=== PATIENT | male | born 1950 | race Caucasian/White ===

== ENCOUNTER → 2020-08-12 14:38 | Outpatient (BNVA) | payer MEDICARE, MEDICAID, SELFPAY | PROVIDERS: PCP Internal Medicine; Referring Provider Internal Medicine; Visit Provider Internal Medicine | DX: I48.0 Paroxysmal atrial fibrillation (principal); Z51.81 Encounter for therapeutic drug level monitoring; Z79.01 Long term (current) use of anticoagulants | CPT/HCPCS: 85610; 99211 ==

== ENCOUNTER → 2020-09-23 14:49 | Outpatient (BNVA) | payer MEDICARE, MEDICAID, SELFPAY | PROVIDERS: PCP Internal Medicine; Visit Provider Internal Medicine | DX: I48.0 Paroxysmal atrial fibrillation (principal); Z51.81 Encounter for therapeutic drug level monitoring; Z79.01 Long term (current) use of anticoagulants | CPT/HCPCS: 85610; 99211 ==

== ENCOUNTER → 2020-10-28 13:28 | Outpatient (BNVA) | payer MEDICARE, MEDICAID, SELFPAY | PROVIDERS: PCP Internal Medicine; Visit Provider Internal Medicine | DX: I48.0 Paroxysmal atrial fibrillation (principal); Z51.81 Encounter for therapeutic drug level monitoring; Z79.01 Long term (current) use of anticoagulants | CPT/HCPCS: 85610; 99211 ==

== ENCOUNTER → 2020-11-25 13:03 | Outpatient (BNVA) | payer MEDICARE, MEDICAID, SELFPAY | PROVIDERS: PCP Internal Medicine; Visit Provider Internal Medicine | DX: I48.0 Paroxysmal atrial fibrillation (principal); Z51.81 Encounter for therapeutic drug level monitoring; Z79.01 Long term (current) use of anticoagulants | CPT/HCPCS: 85610; 99211 ==

== ENCOUNTER → 2020-12-09 13:16 | Outpatient (BNVA) | payer MEDICARE, MEDICAID, SELFPAY | PROVIDERS: PCP Internal Medicine; Visit Provider Internal Medicine | DX: I48.0 Paroxysmal atrial fibrillation (principal); Z51.81 Encounter for therapeutic drug level monitoring; Z79.01 Long term (current) use of anticoagulants | CPT/HCPCS: 85610; 99211 ==

== ENCOUNTER → 2020-12-30 13:23 | Outpatient (BNVA) | payer MEDICARE, MEDICAID, SELFPAY | PROVIDERS: PCP Internal Medicine; Visit Provider Internal Medicine | DX: I48.0 Paroxysmal atrial fibrillation (principal); Z51.81 Encounter for therapeutic drug level monitoring; Z79.01 Long term (current) use of anticoagulants | CPT/HCPCS: 85610; 99211 ==

== ENCOUNTER → 2021-01-13 13:23 | Outpatient (BNVA) | payer MEDICARE, MEDICAID, SELFPAY | PROVIDERS: PCP Internal Medicine; Visit Provider Internal Medicine | DX: I48.0 Paroxysmal atrial fibrillation (principal); Z79.01 Long term (current) use of anticoagulants; Z51.81 Encounter for therapeutic drug level monitoring | CPT/HCPCS: 85610; 99211 ==

== ENCOUNTER → 2021-02-10 13:23 | Outpatient (BNVA) | payer MEDICARE, MEDICAID, SELFPAY | PROVIDERS: PCP Internal Medicine; Visit Provider Internal Medicine | DX: I48.0 Paroxysmal atrial fibrillation (principal); Z51.81 Encounter for therapeutic drug level monitoring; Z79.01 Long term (current) use of anticoagulants | CPT/HCPCS: 85610; 99211 ==

== ENCOUNTER → 2021-03-10 13:16 | Outpatient (BNVA) | payer MEDICARE, MEDICAID, SELFPAY | PROVIDERS: PCP Internal Medicine; Visit Provider Internal Medicine | DX: I48.0 Paroxysmal atrial fibrillation (principal); Z51.81 Encounter for therapeutic drug level monitoring; Z79.01 Long term (current) use of anticoagulants | CPT/HCPCS: 85610; 99211 ==

== ENCOUNTER → 2021-04-07 13:21 | Outpatient (BNVA) | payer MEDICARE, MEDICAID, SELFPAY | PROVIDERS: PCP Internal Medicine; Visit Provider Internal Medicine | DX: I48.0 Paroxysmal atrial fibrillation (principal); Z51.81 Encounter for therapeutic drug level monitoring; Z79.01 Long term (current) use of anticoagulants | CPT/HCPCS: 85610; 99211 ==

== ENCOUNTER → 2021-05-05 13:23 | Outpatient (BNVA) | payer MEDICARE, MEDICAID, SELFPAY | PROVIDERS: PCP Internal Medicine; Visit Provider Internal Medicine | DX: I48.0 Paroxysmal atrial fibrillation (principal); Z51.81 Encounter for therapeutic drug level monitoring; Z79.01 Long term (current) use of anticoagulants | CPT/HCPCS: 85610; 99211 ==

== ENCOUNTER → 2021-06-02 13:20 | Outpatient (BNVA) | payer MEDICARE, MEDICAID, SELFPAY | PROVIDERS: PCP Internal Medicine; Visit Provider Internal Medicine | DX: I48.0 Paroxysmal atrial fibrillation (principal); Z51.81 Encounter for therapeutic drug level monitoring; Z79.01 Long term (current) use of anticoagulants | CPT/HCPCS: 85610; 99211 ==

== ENCOUNTER → 2021-07-14 14:05 | Outpatient (BNVA) | payer MEDICARE, MEDICAID, SELFPAY | PROVIDERS: PCP Internal Medicine; Visit Provider Internal Medicine | DX: I48.0 Paroxysmal atrial fibrillation (principal); Z51.81 Encounter for therapeutic drug level monitoring; Z79.01 Long term (current) use of anticoagulants | CPT/HCPCS: 85610; 99211 ==

== ENCOUNTER → 2021-08-11 13:23 | Outpatient (BNVA) | payer MEDICARE, MEDICAID, SELFPAY | PROVIDERS: PCP Internal Medicine; Visit Provider Internal Medicine | DX: I48.0 Paroxysmal atrial fibrillation (principal); Z51.81 Encounter for therapeutic drug level monitoring; Z79.01 Long term (current) use of anticoagulants | CPT/HCPCS: 85610; 99211 ==

== ENCOUNTER → 2021-09-15 13:10 | Outpatient (BNVA) | payer MEDICARE, MEDICAID, SELFPAY | PROVIDERS: PCP Internal Medicine; Visit Provider Internal Medicine | DX: I48.0 Paroxysmal atrial fibrillation (principal); Z51.81 Encounter for therapeutic drug level monitoring; Z79.01 Long term (current) use of anticoagulants | CPT/HCPCS: 85610; 99211 ==

== ENCOUNTER → 2021-10-13 13:07 | Outpatient (BNVA) | payer MEDICARE, MEDICAID, SELFPAY | PROVIDERS: PCP Internal Medicine; Visit Provider Internal Medicine | DX: I48.0 Paroxysmal atrial fibrillation (principal); Z51.81 Encounter for therapeutic drug level monitoring; Z79.01 Long term (current) use of anticoagulants | CPT/HCPCS: 85610; 99211 ==

== ENCOUNTER → 2021-11-10 12:55 | Outpatient (BNVA) | payer MEDICARE, MEDICAID, SELFPAY | PROVIDERS: PCP Internal Medicine; Visit Provider Internal Medicine | DX: I48.0 Paroxysmal atrial fibrillation (principal); Z51.81 Encounter for therapeutic drug level monitoring; Z79.01 Long term (current) use of anticoagulants | CPT/HCPCS: 85610; 99211 ==

== ENCOUNTER → 2021-12-08 12:59 | Outpatient (BNVA) | payer MEDICARE, MEDICAID, SELFPAY | PROVIDERS: PCP Internal Medicine; Visit Provider Internal Medicine | DX: I48.0 Paroxysmal atrial fibrillation (principal); Z51.81 Encounter for therapeutic drug level monitoring; Z79.01 Long term (current) use of anticoagulants | CPT/HCPCS: 85610; 99211 ==

== ENCOUNTER → 2022-01-12 13:20 | Outpatient (BNVA) | payer MEDICARE, MEDICAID, SELFPAY | PROVIDERS: PCP Internal Medicine; Visit Provider Internal Medicine | DX: I48.0 Paroxysmal atrial fibrillation (principal); Z79.01 Long term (current) use of anticoagulants; Z51.81 Encounter for therapeutic drug level monitoring | CPT/HCPCS: 85610; 99211 ==

== ENCOUNTER → 2022-01-23 10:17 | Outpatient (REF) | payer MEDICARE, MEDICAID, SELFPAY ==
--- NOTE | 2022-01-23 10:44 | CA_ITS ---
Transthoracic Echocardiogram Amended Patient (Last, First, Middle): Viral Castillo, Gender: Male Date of : 1950 Age: 71 Procedure Date: 01/23/2022 Procedure Type: Transthoracic Echocardiogram Location: OP Height: 167.64 cm Weight: 81.65 kg BSA: 1.91 m2 Heart Rate: bpm BP: 140 / 80 mmHg Certified Nurse Midwife: GRIFFIN Referring MD: Jovany Peng MD Symptoms: I10 HTN I48.0 PAF Study Quality: Adequate ECG Rhythm: Atrial Fibrillation Conclusions: - The left ventricular systolic function is normal. The calculated ejection fraction is 63% by biplane method. - Moderately increased right ventricular cavity size. - Severe biatrial enlargement. - There is mild mitral valve regurgitation. - There is mild tricuspid valve regurgitation. - Mild pulmonary hypertension is present. Findings Left Ventricle Normal left ventricular cavity size. There is mildly increased left ventricular wall thickness. The left ventricular systolic function is normal. The calculated ejection fraction is 63% by biplane method. There is no evidence of regional wall motion abnormalities. Diastolic function is indeterminate on the basis of available data. Right Ventricle Moderately increased right ventricular cavity size. There is normal right ventricular systolic function. Atria Severe biatrial enlargement. Aortic Valve There is a normal trileaflet aortic valve. There is no aortic valve stenosis. There is no aortic valve regurgitation. Mitral Valve The mitral valve appears normal. There is mild mitral valve regurgitation. There is no mitral valve stenosis. Pulmonic Valve The pulmonic valve is likely normal. Tricuspid Valve Normal tricuspid valve structure. There is mild tricuspid valve regurgitation. The right ventricular systolic pressure is 44 mmHg. Mild pulmonary hypertension is present. Great Vessels Top normal ascending aortic size at 3.9 cm. Venous The inferior vena cava is dilated and collapses less than 50% with inspiration. Pericardium/Pleural There is no evidence of pericardial effusion. Prior Study Comparison Changes noted compared to prior study dated: 09/11/2013. Further increase in atrial size. Mild valvular regurgitation. Increase in RVSP. Measurements 2D Linear Measurements IVSd: 1.18 0.6-0.9/0.6-1.0 cm LVIDd: 4.80 3.9-5.3/4.2-5.9 cm LVIDd Index: 2.51 2.4-3.2/2.2-3.1 cm/m2 LVIDs: 3.14 2.0-3.6 cm LVPWd: 1.13 0.7-1.1 cm LA Diam: 4.50 2.7-3.8/3.0-4.0 cm LAIDs Index: 2.36 1.5-2.3 cm/m2 LV Mass: 258.79 67-162/88-224 g LV Mass Index: 135.49 43-95/49-115 g/m2 LVOT Diam: 2.20 3.0+(-)1.3 cm 2D Volumes LA Vol: 64.90 2D Systolic Function EF 4C: 63.00 >55% EF 2C: 62.10 >55% EF BiP: 62.70 >55% Mitral Valve MV Pk E: 0.79 MV Decel Time: 289.00 E'Lateral: 14.10 E'Medial: 10.10 E/E' Med: 7.90 E/E' Lat: 5.60 PHT: 85.00 MVA PHT: 2.59 Decel Randall: 2.74 Aortic Valve AoV Pk Miguel: 1.01 AoV Mn Miguel: 0.74 AoV VTI: 0.23 AoV Pk Grad: 4.00 Aov Mn Grad: 2.00 LIZETH Cont.VTI: 2.59 LVOT LVOT Pk Miguel: 0.75 LVOT Mn Miguel: 0.49 LVOT VTI: 0.16 LVOT Pk Grad: 2.00 LVOT Mn Grad: 1.00 LVOT Diam: 2.20 LVOT Area: 3.80 Diastolic Function MV Pk E: 0.79 E'Medial: 10.10 E/E' Med: 7.90 E' Laterial: 14.10 E/E' Lat: 5.60 Right Ventricle TAPSE (mm): 2.14 TVS' Miguel: 11.40 Tricuspid Valve TR Pk Miguel: 2.67 TR Pk Grad: 29.00 RA Press: 15.00 RVSP: 44.00 Great Vessels Aorta Sinus of Valsalva: 3.81 2.0-3.[address] Ridge: 2.42 1.7-3.4 cm Ao Asc: 3.90 2.1-3.4 cm Ao Arch: 3.20 Updated in Other Vendor System with Status of Final Ced Nunez MD electronically signed on 01/23/2022 4:52:09 PM with status of Final
== END ==
LOC: HO.CARD 10:17
PROVIDERS: PCP Internal Medicine; Visit Provider Internal Medicine
DX: I48.0 Paroxysmal atrial fibrillation (principal); I10 Essential (primary) hypertension
CPT/HCPCS: 93306

== ENCOUNTER → 2022-01-26 13:31 | Outpatient (BNVA) | payer MEDICARE, MEDICAID, SELFPAY | PROVIDERS: PCP Internal Medicine; Visit Provider Internal Medicine | DX: I48.0 Paroxysmal atrial fibrillation (principal); Z79.01 Long term (current) use of anticoagulants; Z51.81 Encounter for therapeutic drug level monitoring | CPT/HCPCS: 85610; 99211 ==

== ENCOUNTER → 2022-02-06 08:59 | Outpatient (BNVA) | payer MEDICARE, MEDICAID, SELFPAY | PROVIDERS: PCP Internal Medicine; Visit Provider Internal Medicine Endocrinology, Diabetes & Metabolism | DX: R79.89 Other specified abnormal findings of blood chemistry (principal) | CPT/HCPCS: 99202 ==

== ENCOUNTER 2022-02-23 12:53 | Outpatient (REF) | payer MEDICARE, MEDICAID, SELFPAY ==
[2022-02-23 14:26] LABS: Free T4 (Free Thyroxine) 1.18 ng/dL (0.71-1.85); Thyroid Stimulating Hormone < 0.01 uIU/mL (0.32-4.0)
[2022-02-25 17:31] LABS: Triiodothyronine T3 Free 5.3 pg/mL (2.3-4.2)
== END 2022-02-23 12:54 | disposition home or self-care (01) ==
LOC: HO.LAB 12:53
PROVIDERS: PCP Internal Medicine; Visit Provider Internal Medicine Endocrinology, Diabetes & Metabolism
DX: R79.89 Other specified abnormal findings of blood chemistry (principal); I48.0 Paroxysmal atrial fibrillation; Z51.81 Encounter for therapeutic drug level monitoring; Z79.01 Long term (current) use of anticoagulants
CPT/HCPCS: 36415; 84439; 84443; 84481; 85610; 99211

== ENCOUNTER → 2022-03-23 13:15 | Outpatient (BNVA) | payer MEDICARE, MEDICAID, SELFPAY | PROVIDERS: PCP Internal Medicine; Visit Provider Internal Medicine | DX: I48.0 Paroxysmal atrial fibrillation (principal); Z79.01 Long term (current) use of anticoagulants; Z51.81 Encounter for therapeutic drug level monitoring | CPT/HCPCS: 85610; 99211 ==

== ENCOUNTER → 2022-04-10 09:28 | Outpatient (REF) | payer MEDICARE, MEDICAID, SELFPAY ==
--- NOTE | ~2022-04-10 | NM_ITS ---
EXAMINATION: NM THYROID UPTAKE AND SCAN CLINICAL INFORMATION: Abnormal blood chemistry. COMPARISON: None TECHNIQUE: Following the oral administration of 273 microcuries of I-123 sodium iodide, thyroid uptake was performed and expressed as a percentage of the administrated dose. Gamma scintillation camera images of the thyroid in the anterior and right and left anterior oblique views were obtained using a pinhole collimator following the administration of 10 mCi Tc-99m pertechnetate. FINDINGS: The uptake is 6.28% at 4 hours and 23.97% at 24 hours. On thyroid scan, the right gland appears slightly larger than left with minimal increased activity. No focal cold or hot nodules seen. NM/NM thyroid w uptake IMPRESSION: Normal radio-iodine uptake at 4 hours and 24 hours. Slightly enlarged right thyroid lobe compared to left side but no focal hot or cold nodule or defects seen.
== END ==
LOC: HO.NUCMED 09:28
PROVIDERS: Visit Provider Internal Medicine Endocrinology, Diabetes & Metabolism
DX: R79.89 Other specified abnormal findings of blood chemistry (principal)
CPT/HCPCS: 78014; A9512; A9516

== ENCOUNTER 2022-04-14 07:03 | Outpatient (REF) | payer MEDICARE, MEDICAID, SELFPAY ==
[2022-04-14 08:41] LABS: Thyroid Stimulating Hormone 0.01 uIU/mL (0.32-4.0)
[2022-04-15 09:32] LABS: Triiodothyronine T3 Free 4.2 pg/mL (2.3-4.2)
[2022-04-18 14:26] LABS: Thyrotropin Receptor Antibody 1.12 IU/L (<=2.00)
== END 2022-04-14 07:04 | disposition home or self-care (01) ==
LOC: HO.LAB 07:03
PROVIDERS: PCP Internal Medicine; Visit Provider Internal Medicine Endocrinology, Diabetes & Metabolism
DX: R79.89 Other specified abnormal findings of blood chemistry (principal)
CPT/HCPCS: 36415; 83520; 84439; 84443; 84481

== ENCOUNTER → 2022-04-20 13:07 | Outpatient (BNVA) | payer MEDICARE, MEDICAID, SELFPAY | PROVIDERS: PCP Internal Medicine; Visit Provider Internal Medicine | DX: I48.0 Paroxysmal atrial fibrillation (principal); Z79.01 Long term (current) use of anticoagulants; Z51.81 Encounter for therapeutic drug level monitoring | CPT/HCPCS: 85610; 99211 ==

== ENCOUNTER 2022-04-28 07:11 | Outpatient (REF) | payer MEDICARE, MEDICAID, SELFPAY ==
[2022-04-28 08:36] LABS: Free T4 (Free Thyroxine) 1.11 ng/dL (0.71-1.85); Thyroid Stimulating Hormone 0.01 uIU/mL (0.32-4.0)
[2022-04-30 17:02] LABS: Triiodothyronine T3 Free 5.1 pg/mL (2.3-4.2)
== END 2022-04-28 07:12 | disposition home or self-care (01) ==
LOC: HO.LAB 07:11
PROVIDERS: PCP Internal Medicine; Visit Provider Internal Medicine Endocrinology, Diabetes & Metabolism
DX: R79.89 Other specified abnormal findings of blood chemistry (principal)
CPT/HCPCS: 36415; 84439; 84443; 84481

== ENCOUNTER → 2022-05-01 11:41 | Outpatient (BNVA) | payer MEDICARE, MEDICAID, SELFPAY | PROVIDERS: PCP Internal Medicine; Visit Provider Internal Medicine Endocrinology, Diabetes & Metabolism | DX: R79.89 Other specified abnormal findings of blood chemistry (principal) | CPT/HCPCS: 36415; 80076; 85025; 99212 ==

== ENCOUNTER 2022-05-01 12:33 | Outpatient (REF) | payer MEDICARE, MEDICAID, SELFPAY ==
[2022-05-01 13:40] LABS: MANUAL DIFF FLAG NO
[2022-05-01 13:46] LABS: Basophils Percent Auto 0.2 % (0-2); Eosinophils Absolute Auto 0.2 X10*3/uL (0.0-0.4); Eosinophils Percent Auto 3.6 % (0-4); Hematocrit 40.2 % (42.0-52.0); Hemoglobin 13.7 g/dl (14.0-18.0); Imm Gran Abs Auto 0.01 X10*3/uL (0.00-0.03); Imm Gran Pct Auto 0.2 % (0.0-0.4); Lymphocytes Absolute Auto 1.8 X10*3/uL (1.2-4.9); Lymphocytes Percent Auto 27.6 % (20-40); Mean Corpuscular HGB Conc 34.1 g/dl (31.0-36.0); Mean Corpuscular Hemoglobin 28.8 pg (27.0-33.0); Mean Corpuscular Volume 84.5 fL (80.0-98.0); Mean Platelet Volume 10.9 fL (9.4-12.4); Monocytes Absolute Auto 0.7 X10*3/uL (0.1-1.2); Monocytes Percent Auto 11.2 % (2-11); Neutrophils Absolute Auto 3.7 x10*3/uL (2.0-8.3); Neutrophils Percent Auto 57.2 % (45-73); Platelet Count 177 X10*3/uL (160-400); Red Blood Count 4.76 X10*6/uL (4.60-5.80); Red Cell Distribution Width 13.3 % (11.0-16.0); White Blood Count 6.5 X10*3/uL (4.8-10.8)
[2022-05-01 14:28] LABS: Alanine Aminotransferase 26 U/L (0-40); Albumin Level 4.2 g/dL (3.5-5.0); Alkaline Phosphatase 63 U/L (39-117); Aspartate Amino Transferase 30 U/L (5-37); Bilirubin Direct 0.4 mg/dL (0.0-0.5); Bilirubin Total 0.8 mg/dL (0.0-1.0); Total Protein 6.9 g/dL (6.5-8.0)
== END 2022-05-01 12:34 | disposition home or self-care (01) ==
LOC: HO.10HDL 12:33
PROVIDERS: Visit Provider Internal Medicine Endocrinology, Diabetes & Metabolism
DX: Z13.89 Encounter for screening for other disorder (principal)
CPT/HCPCS: 36415; 80076; 85025

== ENCOUNTER → 2022-05-18 13:05 | Outpatient (BNVA) | payer MEDICARE, MEDICAID, SELFPAY | PROVIDERS: PCP Internal Medicine; Visit Provider Internal Medicine | DX: I48.0 Paroxysmal atrial fibrillation (principal); Z79.01 Long term (current) use of anticoagulants; Z51.81 Encounter for therapeutic drug level monitoring | CPT/HCPCS: 85610; 99211 ==

== ENCOUNTER 2022-05-29 15:28 | Outpatient (REF) | payer MEDICARE, MEDICAID, SELFPAY ==
--- NOTE | ~2022-05-29 | US_ITS ---
EXAMINATION: US THYROID CLINICAL INFORMATION: Low TSH levels. COMPARISON: Nuclear medicine thyroid uptake and scan 04/10/2022. TECHNIQUE: Linear transducer grayscale and color Doppler examination with attention to the region of the thyroid. FINDINGS: SIZE: Measurements of the thyroid lobes and nodules are given in sagittal, anteroposterior and transverse dimensions respectively. Right Thyroid Lobe: 5.8 x 1.7 x 2.4 cm, volume 12.4 mL. Parenchyma: The gland echotexture is heterogeneous. Thyroid vascularity is increased. Left Thyroid Lobe: 4.2 x 1.4 x 1.5 cm, volume 4.6 mL. Parenchyma: The gland echotexture is heterogeneous. Thyroid vascularity is increased. Isthmus: 0.4 cm in maximum AP dimension. Estimated total number of nodules greater than or equal to 1 cm: 1. Preservative Filler Machine Operator nodules are described as follows: 1. Location: Left mid. Size: 0.9 x 0.5 x 0.9 cm, volume 0.24 mL. Nodule characteristics: Composition: Solid (2). Echogenicity: Isoechoic (1). Shape: Not taller than wide (0). Margins: Smooth (0). Echogenic Foci: Punctate echogenic foci (3). ACR TI-RADS total points: 6 ACR TI-RADS category: 4 2. Location: Right superior. Size: 0.7 x 0.5 x 0.6 cm, volume 0.10 mL. Nodule characteristics: Composition: Solid/almost completely solid (2). Echogenicity: Isoechoic (1). Shape: Not taller than wide (0). Margins: Ill-defined (0). Echogenic Foci: None (0). ACR TI-RADS total points: 3 ACR TI-RADS category: 3 3. Location: Right mid. Size: 0.7 x 0.7 x 0.6 cm, volume 0.14 mL. Nodule characteristics: Composition: Solid (2). Echogenicity: Hyperechoic (1). Shape: Taller than wide (3). Margins: Ill-defined (0). Echogenic Foci: None (0). ACR TI-RADS total points: 6 ACR TI-RADS category: 4 4. Location: Right inferior. Size: 1.1 x 1.2 x 1.3 cm, volume 0.92 mL. Nodule characteristics: Composition: Solid/almost completely solid (2). Echogenicity: Hypoechoic (2). Shape: Not taller than wide (0). Margins: Ill-defined (0). Echogenic Foci: Macrocalcifications (1). ACR TI-RADS total points: 5 ACR TI-RADS category: 4 NODES: No lymphadenopathy is seen in the tissue surrounding the thyroid gland. US/US thyroid IMPRESSION: Heterogeneous hypervascular thyroid gland. The right lobe slightly enlarged. Multiple bilateral thyroid nodules. According to TI RADS criteria, ultrasound follow-up in one, 2, 3 and 5 years would be recommended as described below. ACR TI-RADS RECOMMENDATION REFERENCE: Ultrasound-guided fine-needle aspiration, followup ultrasound, no further follow up. * TR1 (0 point) and TR 2 (2 points): No FNA or follow up. * TR3 (3 points): FNA if more than or equal to 2.5 cm in maximum dimension, followup ultrasound in 1, 3 and 5 years if 1.5 to 2.4 cm in maximum dimension. * TR4 (4-6 points): FNA if more than or equal to 1.5 cm in maximum dimension, followup ultrasound in 1, 2, 3 and 5 years if 1 to 1.4 cm in maximum dimension. * TR5 (more than or equal to 7 points): FNA if more than or equal to 1 cm in maximum dimension, followup ultrasound every year for 5 years if 0.5 to 0.9 cm in maximum dimension. * TR3, TR4 or TR5 nodules that are below the size threshold for followup receive no follow up.
== END 2022-05-29 15:29 | disposition home or self-care (01) ==
LOC: HO.HMGCX 15:28
PROVIDERS: Visit Provider Internal Medicine Endocrinology, Diabetes & Metabolism
DX: R79.89 Other specified abnormal findings of blood chemistry (principal)
CPT/HCPCS: 76536

== ENCOUNTER → 2022-06-15 13:09 | Outpatient (BNVA) | payer MEDICARE, MEDICAID, SELFPAY | PROVIDERS: PCP Internal Medicine; Visit Provider Internal Medicine | DX: I48.0 Paroxysmal atrial fibrillation (principal); Z79.01 Long term (current) use of anticoagulants; Z51.81 Encounter for therapeutic drug level monitoring | CPT/HCPCS: 85610; 99211 ==

== ENCOUNTER → 2022-07-13 13:10 | Outpatient (BNVA) | payer MEDICARE, MEDICAID, SELFPAY | PROVIDERS: PCP Internal Medicine; Visit Provider Internal Medicine | DX: I48.0 Paroxysmal atrial fibrillation (principal); Z79.01 Long term (current) use of anticoagulants; Z51.81 Encounter for therapeutic drug level monitoring | CPT/HCPCS: 85610; 99211 ==

== ENCOUNTER 2022-08-28 15:40 | Outpatient (REF) | payer MEDICARE, MEDICAID, SELFPAY ==
[2022-08-28 16:16] LABS: MANUAL DIFF FLAG NO
[2022-08-28 17:29] LABS: Basophils Percent Auto 0.2 % (0-2); Eosinophils Absolute Auto 0.1 X10*3/uL (0.0-0.4); Eosinophils Percent Auto 1.3 % (0-4); Hematocrit 41.7 % (42.0-52.0); Hemoglobin 14.2 g/dl (14.0-18.0); Imm Gran Abs Auto 0.01 X10*3/uL (0.00-0.03); Imm Gran Pct Auto 0.2 % (0.0-0.4); Lymphocytes Absolute Auto 1.6 X10*3/uL (1.2-4.9); Mean Corpuscular HGB Conc 34.1 g/dl (31.0-36.0); Mean Corpuscular Hemoglobin 29.4 pg (27.0-33.0); Mean Corpuscular Volume 86.3 fL (80.0-98.0); Monocytes Absolute Auto 1.1 X10*3/uL (0.1-1.2); Monocytes Percent Auto 17.1 % (2-11); Neutrophils Absolute Auto 3.6 x10*3/uL (2.0-8.3); Neutrophils Percent Auto 56.2 % (45-73); Platelet Count 212 X10*3/uL (160-400); Red Blood Count 4.83 X10*6/uL (4.60-5.80); Red Cell Distribution Width 13.1 % (11.0-16.0); White Blood Count 6.4 X10*3/uL (4.8-10.8)
[2022-08-28 18:24] LABS: Alanine Aminotransferase 32 U/L (0-40); Albumin Level 4.5 g/dL (3.5-5.0); Alkaline Phosphatase 73 U/L (39-117); Aspartate Amino Transferase 35 U/L (5-37); Bilirubin Direct 0.3 mg/dL (0.0-0.5); Bilirubin Total 0.9 mg/dL (0.0-1.0); Free T4 (Free Thyroxine) 0.98 ng/dL (0.71-1.85); Thyroid Stimulating Hormone 1.47 uIU/mL (0.32-4.0); Total Protein 7.4 g/dL (6.5-8.0)
[2022-08-30 06:58] LABS: Triiodothyronine T3 Free 3.7 pg/mL (2.3-4.2)
== END 2022-08-28 15:41 | disposition home or self-care (01) ==
LOC: HO.LAB 15:40
PROVIDERS: PCP Internal Medicine; Visit Provider Internal Medicine Endocrinology, Diabetes & Metabolism
DX: I48.0 Paroxysmal atrial fibrillation (principal); R79.89 Other specified abnormal findings of blood chemistry; Z51.81 Encounter for therapeutic drug level monitoring; Z79.01 Long term (current) use of anticoagulants
CPT/HCPCS: 36415; 80076; 84439; 84443; 84481; 85025; 85610; 99211

== ENCOUNTER → 2022-09-14 13:09 | Outpatient (BNVA) | payer MEDICARE, MEDICAID, SELFPAY | PROVIDERS: PCP Internal Medicine; Visit Provider Internal Medicine | DX: I48.0 Paroxysmal atrial fibrillation (principal); Z79.01 Long term (current) use of anticoagulants; Z51.81 Encounter for therapeutic drug level monitoring | CPT/HCPCS: 85610; 99211 ==

== ENCOUNTER → 2022-09-19 15:19 | Outpatient (BNVA) | payer MEDICARE, MEDICAID, SELFPAY | PROVIDERS: PCP Internal Medicine; Visit Provider Internal Medicine Endocrinology, Diabetes & Metabolism | DX: R79.89 Other specified abnormal findings of blood chemistry (principal) | CPT/HCPCS: 99212 ==

== ENCOUNTER → 2022-10-12 13:09 | Outpatient (BNVA) | payer MEDICARE, MEDICAID, SELFPAY | PROVIDERS: PCP Internal Medicine; Visit Provider Internal Medicine | DX: I48.0 Paroxysmal atrial fibrillation (principal); Z79.01 Long term (current) use of anticoagulants; Z51.81 Encounter for therapeutic drug level monitoring | CPT/HCPCS: 85610; 99211 ==

== ENCOUNTER → 2022-11-09 13:44 | Outpatient (BNVA) | payer MEDICARE, MEDICAID, SELFPAY | PROVIDERS: PCP Internal Medicine; Visit Provider Internal Medicine | DX: I48.0 Paroxysmal atrial fibrillation (principal); Z79.01 Long term (current) use of anticoagulants; Z51.81 Encounter for therapeutic drug level monitoring | CPT/HCPCS: 85610; 99211 ==

== ENCOUNTER → 2022-12-14 14:10 | Outpatient (BNVA) | payer MEDICARE, MEDICAID, SELFPAY | PROVIDERS: PCP Internal Medicine; Visit Provider Internal Medicine | DX: I48.0 Paroxysmal atrial fibrillation (principal); Z79.01 Long term (current) use of anticoagulants; Z51.81 Encounter for therapeutic drug level monitoring | CPT/HCPCS: 85610; 99211 ==

== ENCOUNTER → 2023-01-11 13:21 | Outpatient (BNVA) | payer MEDICARE, MEDICAID, SELFPAY | PROVIDERS: PCP Internal Medicine; Visit Provider Internal Medicine | DX: I48.0 Paroxysmal atrial fibrillation (principal); Z79.01 Long term (current) use of anticoagulants; Z51.81 Encounter for therapeutic drug level monitoring | CPT/HCPCS: 85610; 99211 ==

== ENCOUNTER → 2023-02-08 13:06 | Outpatient (BNVA) | payer MEDICARE, MEDICAID, SELFPAY | PROVIDERS: PCP Internal Medicine; Visit Provider Internal Medicine | DX: I48.0 Paroxysmal atrial fibrillation (principal); Z79.01 Long term (current) use of anticoagulants; Z51.81 Encounter for therapeutic drug level monitoring | CPT/HCPCS: 85610; 99211 ==

== ENCOUNTER 2023-04-19 13:39 | Outpatient (AMB) | payer MEDICARE, MEDICAID, SELFPAY ==
[2023-04-19 14:12] LABS: Prothrombin Time Whole Bld POC 24.2 sec (11.1-13.5)
--- NOTE | 2023-04-19 14:13 | MHC.OFFVISCO ---
Intake Intake Visit Reasons: Anticoagulation Allergies No Known Allergies [No Known Allergies*] Allergy (Verified 04/19/23 14:05) Medication List - Last Reconciled 04/19/23 by Tomasa Osuna RN diltiazem HCl ER (DILT-XR) 240 mg PO DAILY lisinopril 2.5 mg PO DAILY methimazole 10 mg PO DAILY warfarin 2.5 mg See Protocol PO DAILY Nursing Note Amb to ACS feeling well, Last ACS visit was 02/08, travel to [place] and ?missed appt, reminded to keep scheduled appointents Medications and supplements reviewed No changes in health, diet, medications, or supplements Denies any unusual signs and symptoms of bruising, bleeding Denies any new Chest pain, SOB, or clotting INR: 2.0 just in therapeutic range Nutritional guidance given:no greens today then balance greens and reds in diet, be consistent Dose: continue usual dosing; 10mg x 3 days and 7.5mg x 4 days F/U INR: 4 weeks Patient verbalizes understanding of instructions given with accurate read back/ teach back of dosing Anti-Coag Initial Assessment Social Hx Patient Tobacco Use Status: Former Tobacco user Tobacco use type: Cigarette alcohol intake: current Alcohol intake frequency: does not drink Coding Level of Care Code Est Patient Level 1 Diagnoses Current use of anticoagulant therapy Z79.01 Time Spent (min) 15 Assessment & Plan Assessment & Plan (1) Current use of anticoagulant therapy: Code(s): Z79.01 - prison (current) use of anticoagulants Category: Medical
== END 2023-04-19 14:00 ==
LOC: HO.ACS 13:39
PROVIDERS: PCP Internal Medicine; Visit Provider Internal Medicine
DX: Z79.01 Long term (current) use of anticoagulants (principal)

== ENCOUNTER → 2023-04-19 13:39 | Outpatient (BNVA) | payer MEDICARE, MEDICAID, SELFPAY | PROVIDERS: PCP Internal Medicine; Visit Provider Internal Medicine | DX: I48.0 Paroxysmal atrial fibrillation (principal); Z79.01 Long term (current) use of anticoagulants; Z51.81 Encounter for therapeutic drug level monitoring | CPT/HCPCS: 85610; 99211 ==

== ENCOUNTER 2023-05-07 15:33 | Outpatient (REF) | payer MEDICARE, MEDICAID, SELFPAY ==
[2023-05-07 15:56] LABS: MANUAL DIFF FLAG NO
[2023-05-07 17:01] LABS: Basophils Percent Auto 0.3 % (0-2); Eosinophils Absolute Auto 0.3 X10*3/uL (0.0-0.4); Eosinophils Percent Auto 3.9 % (0-4); Hematocrit 40.8 % (42.0-52.0); Hemoglobin 14.2 g/dl (14.0-18.0); Imm Gran Abs Auto 0.01 X10*3/uL (0.00-0.03); Imm Gran Pct Auto 0.1 % (0.0-0.4); Lymphocytes Absolute Auto 2.2 X10*3/uL (1.2-4.9); Mean Corpuscular HGB Conc 34.8 g/dl (31.0-36.0); Mean Corpuscular Hemoglobin 30.5 pg (27.0-33.0); Mean Corpuscular Volume 87.6 fL (80.0-98.0); Mean Platelet Volume 11.5 fL (9.4-12.4); Monocytes Absolute Auto 0.7 X10*3/uL (0.1-1.2); Monocytes Percent Auto 9.8 % (2-11); Neutrophils Absolute Auto 3.9 x10*3/uL (2.0-8.3); Neutrophils Percent Auto 54.9 % (45-73); Platelet Count 176 X10*3/uL (160-400); Red Blood Count 4.66 X10*6/uL (4.60-5.80); Red Cell Distribution Width 13.1 % (11.0-16.0); White Blood Count 7.1 X10*3/uL (4.8-10.8)
[2023-05-07 17:30] LABS: Alanine Aminotransferase 30 U/L (0-40); Albumin Level 4.4 g/dL (3.5-5.0); Alkaline Phosphatase 62 U/L (39-117); Aspartate Amino Transferase 33 U/L (5-37); Bilirubin Direct 0.2 mg/dL (0.0-0.5); Bilirubin Total 0.6 mg/dL (0.0-1.0); Total Protein 7.3 g/dL (6.5-8.0)
[2023-05-07 17:46] LABS: Free T4 (Free Thyroxine) 0.75 ng/dL (0.71-1.85)
[2023-05-08 23:53] LABS: Triiodothyronine T3 Free 3.3 pg/mL (2.3-4.2)
== END 2023-05-07 15:34 | disposition home or self-care (01) ==
LOC: HO.LAB 15:33
PROVIDERS: PCP Internal Medicine; Visit Provider Internal Medicine Endocrinology, Diabetes & Metabolism
DX: R94.6 Abnormal results of thyroid function studies (principal)
CPT/HCPCS: 36415; 80076; 84439; 84443; 84481; 85025

== ENCOUNTER 2023-05-14 16:36 | Outpatient (AMB) | payer MEDICARE, MEDICAID, SELFPAY ==
--- NOTE | 2023-05-14 16:38 | MHC.OFFVIS ---
Intake Vital Signs 05/14/23 16:41 Height 5 ft 6 in Weight 191 lb 2.252 oz BMI 30.8 BP 142/70 H Blood Pressure Location Rt brachial Position Sitting Pulse 70 Pulse Source Pulse Oximeter Intake Visit Reasons: f/u toxic thyroid nodule Intake Note: Patient present for Toxic Thyroid Nodule follow up visit. Bobbin Cleaning Machine Operator Required: No Bobbin Cleaning Machine Operator Name: Refusal Signed Accompanied by: Daughter Allergies No Known Allergies [No Known Allergies*] Allergy (Verified 05/14/23 16:42) HPI HPI Comments History of Present Illness Details 72 YO F with PMHx a-fib who is seen in consultation for low TSH at the request of PCP. Just found out about abnormal TSH Currently denies any dysphagia or hoarseness of voice. Denies sensation of swelling in the neck or difficulty breathing while lying flat. Denies any tenderness in the neck. Denies any palpitations, tremors, weight loss, frequent bowel movements. Denies any ocular complaints, blurred or double vision. Denies hair loss, dry skin, heat or cold intolerance, weight gain, confusion. Denies any history of head or neck irradiation. Denies any family history of thyroid cancer or thyroid problems . No recent use of steroids or amiodarone Thyroid uptake and scan showed normal uptake but personal review of scan showed hot right nodule although was not read as such. He is currently off methimazole . Labs: Recent blood work showed elevation TSH and methimazole was stopped [facility] Medical History (Updated 02/06/22 @ 08:57 by Eugene Lake MD) Low TSH level Surgical History History of surgery History of total right hip arthroplasty Hx of colonoscopy Hx of hernia repair Family History Father No problems noted. Mother No problems noted. Sister Stroke Social History Household Members: Spouse Alcohol intake: current Alcohol intake frequency: does not drink Patient Tobacco Use Status: Former Tobacco user Tobacco use type: Cigarette Physical Exam Vital Signs: BMI result Body Mass Index 30.8 HEENT reveals absence of lid lag , stare or proptosis or eyebrow loss. Thyroid gland measure 15 gms . No nodules or tenderness palpated. There is no cervical adenopathy palpated. Lungs CTA. Heart S1, S2 irReg Irreg R/R -M/R/G. Abdominal exam benign. Skin exam reveals absence of dryness or thyroid dermopathy or vitiligo. Nail exam reveals absence of thyroid acropachy or oncholysis. Neurologic exam reveals 2+ reflexes . Muscle Strength is 5/5 proximally. There are no tremors in upper extremities. Assessment & Plan Assessment & Plan (1) Low TSH level: Code(s): R79.89 - Other specified abnormal findings of blood chemistry Plan: This 71-year-old male with a history of undetectable TSH with normal free T4 and free T3 in the setting of atrial fibrillation. Currently off methimazole. Antibodies were negative for Graves disease Plan is to recheck thyroid function studies in 4 weeks time. Will also repeat thyroid ultrasound If TSH declines again, methimazole 5 mg will be initiated. Orders: Orders US thyroid Today E04.2 - Nontoxic multinodular goiter Coding Level of Care Code Est Pt Level 3 (60050) Diagnoses Low TSH level R79.89
[2023-05-14 16:41] VITALS: BP 142/70; PULSE 70; BMI 30.8
== END 2023-05-14 16:50 ==
PROVIDERS: PCP Internal Medicine; Visit Provider Internal Medicine Endocrinology, Diabetes & Metabolism
DX: R79.89 Other specified abnormal findings of blood chemistry (principal)
CPT/HCPCS: 99213

== ENCOUNTER → 2023-05-14 16:36 | Outpatient (BNVA) | payer MEDICARE, MEDICAID, SELFPAY | PROVIDERS: PCP Internal Medicine; Visit Provider Internal Medicine Endocrinology, Diabetes & Metabolism | DX: R94.6 Abnormal results of thyroid function studies (principal) | CPT/HCPCS: 99212 ==

== ENCOUNTER 2023-05-17 13:20 | Outpatient (AMB) | payer MEDICARE, MEDICAID, SELFPAY ==
[2023-05-17 13:29] LABS: Prothrombin Time Whole Bld POC 18.9 sec (11.1-13.5); ~PT, ~INR - Anti Coag Clinic 1.6 (0.9-1.1)
--- NOTE | 2023-05-17 13:32 | MHC.OFFVISCO ---
Intake Intake Visit Reasons: Anticoagulation Allergies No Known Allergies [No Known Allergies*] Allergy (Verified 05/17/23 13:24) Medication List - Last Reconciled 05/17/23 by Tomasa Osuna RN diltiazem HCl ER (DILT-XR) 240 mg PO DAILY lisinopril 2.5 mg PO DAILY warfarin 2.5 mg See Protocol PO DAILY Nursing Note Amb to ACS feeling well Medications and supplements reviewed No changes in health, diet, medications, or supplements Denies any unusual signs and symptoms of bruising, bleeding Denies any new Chest pain, SOB, or clotting INR: 1.6 below therapeutic range, pt thinks he may have had too many pickles over the past couple weeks Nutritional guidance given: no greens x 2 days then balance greens and reds in diet, in moderation Dose: increase dose today to 12.5mg (vs 10mg), tomorrow to 10 mg (vs 7.5) then resume usual dosing; 10mg x 3 days and 7.5mg x 4 days F/U INR: 1week and instructed my need another check in a couple weeks before he can go back to monthly visits Patient verbalizes understanding of instructions given with accurate read back/ teach back of dosing Anti-Coag Initial Assessment Social Hx Patient Tobacco Use Status: Former Tobacco user Tobacco use type: Cigarette alcohol intake: current Alcohol intake frequency: does not drink Coding Level of Care Code Est Patient Level 1 Diagnoses Current use of anticoagulant therapy Z79.01 Time Spent (min) 15 Assessment & Plan Assessment & Plan (1) Current use of anticoagulant therapy: Code(s): Z79.01 - custodial (current) use of anticoagulants Category: Medical
== END 2023-05-17 14:01 | disposition home or self-care (01) ==
LOC: HO.ACS 13:20
PROVIDERS: PCP Internal Medicine; Visit Provider Internal Medicine
DX: Z79.01 Long term (current) use of anticoagulants (principal)

== ENCOUNTER → 2023-05-17 13:20 | Outpatient (BNVA) | payer MEDICARE, MEDICAID, SELFPAY | PROVIDERS: PCP Internal Medicine; Visit Provider Internal Medicine | DX: I48.0 Paroxysmal atrial fibrillation (principal); Z79.01 Long term (current) use of anticoagulants; Z51.81 Encounter for therapeutic drug level monitoring | CPT/HCPCS: 85610; 99211 ==

== ENCOUNTER 2023-05-24 13:18 | Outpatient (AMB) | payer MEDICARE, MEDICAID, SELFPAY ==
[2023-05-24 13:37] LABS: Prothrombin Time Whole Bld POC 25.1 sec (11.1-13.5); ~PT, ~INR - Anti Coag Clinic 2.1 (0.9-1.1)
--- NOTE | 2023-05-24 13:39 | MHC.OFFVISCO ---
Intake Intake Visit Reasons: Anticoagulation Allergies No Known Allergies [No Known Allergies*] Allergy (Verified 05/24/23 13:28) Medication List - Last Reconciled 05/24/23 by Ximena Mukherjee RN diltiazem HCl ER (DILT-XR) 240 mg PO DAILY lisinopril 2.5 mg PO DAILY methimazole 10 mg PO DAILY warfarin 2.5 mg See Protocol PO DAILY Nursing Note INR: 2.1 in therapeutic range TYROID FUNCTIONS BEING FOLLOWED BY ENDOCRIN - LABIL AT THE MOMENT Medications and supplements reviewed No changes in health, diet, medications, or supplements, Denies any signs and symptoms of bleeding or bruising or clotting. 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
== END 2023-05-24 13:42 | disposition home or self-care (01) ==
LOC: HO.ACS 13:18
PROVIDERS: PCP Internal Medicine; Visit Provider Internal Medicine
DX: Z79.01 Long term (current) use of anticoagulants (principal)

== ENCOUNTER → 2023-05-24 13:18 | Outpatient (BNVA) | payer MEDICARE, MEDICAID, SELFPAY | PROVIDERS: PCP Internal Medicine; Visit Provider Internal Medicine | DX: I48.0 Paroxysmal atrial fibrillation (principal); Z79.01 Long term (current) use of anticoagulants; Z51.81 Encounter for therapeutic drug level monitoring | CPT/HCPCS: 85610; 99211 ==

== ENCOUNTER 2023-05-28 15:36 | Outpatient (REF) | payer MEDICARE, MEDICAID, SELFPAY ==
--- NOTE | ~2023-05-28 | US_ITS ---
EXAMINATION: US THYROID CLINICAL INFORMATION: Nontoxic multinodular goiter. COMPARISON: Ultrasound soft tissue head/neck thyroid dated 05/29/2022. TECHNIQUE: Linear transducer grayscale and color Doppler examination with attention to the region of the thyroid. FINDINGS: SIZE: Measurements of the thyroid lobes and nodules are given in sagittal, anteroposterior and transverse dimensions respectively. Right Thyroid Lobe: 5.7 x 1.7 x 1.8 cm, volume 9.1 mL. Previously 5.8 x 1.7 x 2.4 cm, volume 12.4 mL. Parenchyma: The gland echotexture is homogeneous. Thyroid vascularity is normal. Left Thyroid Lobe: 4.1 x 1.7 x 2.1 cm, volume 7.7 mL. Previously 4.2 x 1.4 x 1.5 cm, volume 4.6 mL. Parenchyma: The gland echotexture is homogeneous. Thyroid vascularity is normal. Isthmus: 0.3 cm in maximum AP dimension. Previously 0.4 cm. Estimated total number of nodules greater than or equal to 1 cm: 2. Environmental Compliance Inspector nodules are described as follows: 1. Location: Left mid. Size: 1.7 x 0.9 x 1.4 cm, volume 1.08 mL. Previously: 0.9 x 0.5 x 0.9 cm, volume 0.24 mL. Nodule characteristics: Composition: Solid (2). Echogenicity: Isoechoic (1). Shape: Not taller than wide (0). Margins: Smooth (0). Echogenic Foci: Punctate echogenic foci (3). ACR TI-RADS total points: 6 Previous: 6 ACR TI-RADS category: 4 Previous: 4 Significant change in size (>/= 20% in 2 dimensions and minimal increase of 2 mm or 50% or greater increase in volume): Yes Change in features: No Change in ACR TI-RADS risk category: No 2. Location: Left superior. Size: 0.8 x 0.5 x 0.5 cm, volume 0.11 mL. Previously: This nodule is new. Nodule characteristics: Composition: Solid (2). Echogenicity: Hypoechoic (2). Shape: Not taller than wide (0). Margins: Smooth (0). Echogenic Foci: None (0). ACR TI-RADS total points: 4 ACR TI-RADS category: 4 3. Location: Right mid/superior. Size: 0.8 x 0.5 x 0.5 cm, volume 0.10 mL. Previously: 0.7 x 0.5 x 0.6 cm, volume 0.10 mL. Nodule characteristics: Composition: Solid (2). Echogenicity: Hyperechoic (1). Shape: Not taller than wide (0). Margins: Smooth (0). Echogenic Foci: None (0). ACR TI-RADS total points: 3 Previous: 3 ACR TI-RADS category: 3 Previous: 3 Significant change in size (>/= 20% in 2 dimensions and minimal increase of 2 mm or 50% or greater increase in volume): No Change in features: No Change in ACR TI-RADS risk category: No 4. Location: Right mid. Size: 0.7 x 0.7 x 0.7 cm, volume 0.18 mL. Previously: 0.7 x 0.7 x 0.6 cm, volume 0.14 mL. Nodule characteristics: Composition: Solid (2). Echogenicity: Hyperechoic (1). Shape: Not taller than wide (0). Margins: Smooth (0). Echogenic Foci: None (0). ACR TI-RADS total points: 3 Previous: 6 ACR TI-RADS category: 3 Previous: 4 Significant change in size (>/= 20% in 2 dimensions and minimal increase of 2 mm or 50% or greater increase in volume): No Change in features: Yes, no longer taller than wide Change in ACR TI-RADS risk category: Yes 5. Location: Right inferior. Size: 1.0 x 1.0 x 1.2 cm, volume 0.60 mL. Previously: 1.1 x 1.2 x 1.3 cm, volume 0.92 mL. Nodule characteristics: Composition: Mixed cystic and solid (1). Echogenicity: Isoechoic (1). Shape: Not taller than wide (0). Margins: Ill-defined (0). Echogenic Foci: Peripheral calcifications (2). ACR TI-RADS total points: 4 ACR TI-RADS category: 4 Significant change in size (>/= 20% in 2 dimensions and minimal increase of 2 mm or 50% or greater increase in volume): No Change in features: Not accounting for differences in interobserver variability. Change in ACR TI-RADS risk category: No NODES: No lymphadenopathy is seen in the tissue surrounding the thyroid gland. US/US thyroid IMPRESSION: 1.7 cm TR 4 left mid thyroid nodule which meets criteria for tissue sampling if not ready obtained. A 1.2 cm TR 4 right inferior thyroid nodule meets criteria not significant changed when accounting for differences in interobserver variability meets criteria for continued sonographic surveillance in one year as detailed below. Remainder of subcentimeter thyroid nodules do not meet criteria for follow-up. ACR TI-RADS RECOMMENDATION REFERENCE: Ultrasound-guided fine-needle aspiration, follow up ultrasound, no further followup. * TR1 (0 point) and TR2 (2 points): No FNA or followup * TR3 (3 points): FNA if more than or equal to 2.5 cm in maximum dimension, follow up ultrasound in 1, 3 and 5 years if 1.5 to 2.4 cm in maximum dimension. * TR4 (4-6 points): FNA if more than or equal to 1.5 cm in maximum dimension, follow up ultrasound in 1, 2, 3 and 5 years if 1 to 1.4 cm in maximum dimension. * TR5 (more than or equal to 7 points): FNA if more than or equal to 1 cm in maximum dimension, follow up ultrasound every year for 5 years if 0.5 to 0.9 cm in maximum dimension. * TR3, TR4 or TR5 nodules that are below the size threshold for follow up receive no followup.
== END 2023-05-28 15:37 | disposition home or self-care (01) ==
LOC: HO.HMGCX 15:36
PROVIDERS: PCP Internal Medicine; Visit Provider Internal Medicine Endocrinology, Diabetes & Metabolism
DX: E04.2 Nontoxic multinodular goiter (principal)
CPT/HCPCS: 76536

== ENCOUNTER 2023-06-08 08:47 | Outpatient (REF) | payer MEDICARE, MEDICAID, SELFPAY ==
[2023-06-08 10:48] LABS: Free T4 (Free Thyroxine) 0.86 ng/dL (0.71-1.85); Thyroid Stimulating Hormone 3.31 uIU/mL (0.32-4.0)
[2023-06-09 23:28] LABS: Triiodothyronine T3 Free 4.1 pg/mL (2.3-4.2)
== END 2023-06-08 08:48 | disposition home or self-care (01) ==
LOC: HO.LAB 08:47
PROVIDERS: PCP Internal Medicine; Visit Provider Internal Medicine Endocrinology, Diabetes & Metabolism
DX: R94.6 Abnormal results of thyroid function studies (principal)
CPT/HCPCS: 36415; 84439; 84443; 84481

== ENCOUNTER 2023-06-14 13:29 | Outpatient (AMB) | payer MEDICARE, MEDICAID, SELFPAY ==
--- NOTE | 2023-06-14 13:37 | MHC.OFFVISCO ---
Intake Intake Visit Reasons: Anticoagulation Allergies No Known Allergies [No Known Allergies*] Allergy (Verified 06/14/23 13:30) Medication List - Last Reconciled 06/14/23 by Tomasa Osuna RN diltiazem HCl ER (DILT-XR) 240 mg PO DAILY lisinopril 2.5 mg PO DAILY warfarin 2.5 mg See Protocol PO DAILY Nursing Note Amb to ACS feeling well Medications and supplements reviewed No changes in health, diet, medications, or supplements Denies any unusual signs and symptoms of bruising, bleeding Denies any new Chest pain, SOB, or clotting INR: 2.7 in therapeutic range Nutritional guidance given: balance greens and reds in diet Dose: continue usual dosing;10mg x 3 days and 7.5mg x 4 days F/U INR: 4 weeks Patient verbalizes understanding of instructions given with accurate read back/ teach back of dosing Anti-Coag Initial Assessment Social Hx Patient Tobacco Use Status: Former Tobacco user Tobacco use type: Cigarette alcohol intake: current Alcohol intake frequency: does not drink Coding Level of Care Code Est Patient Level 1 Diagnoses Current use of anticoagulant therapy Z79.01 Time Spent (min) 15 Assessment & Plan Assessment & Plan (1) Current use of anticoagulant therapy: Code(s): Z79.01 - 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
== END 2023-06-14 13:40 | disposition home or self-care (01) ==
LOC: HO.ACS 13:29
PROVIDERS: PCP Internal Medicine; Visit Provider Internal Medicine
DX: Z79.01 Long term (current) use of anticoagulants (principal)

== ENCOUNTER → 2023-06-14 13:29 | Outpatient (BNVA) | payer MEDICARE, MEDICAID, SELFPAY | PROVIDERS: PCP Internal Medicine; Visit Provider Internal Medicine | DX: I48.0 Paroxysmal atrial fibrillation (principal); Z79.01 Long term (current) use of anticoagulants; Z51.81 Encounter for therapeutic drug level monitoring | CPT/HCPCS: 85610; 99211 ==

== ENCOUNTER 2023-06-26 09:54 | Outpatient (REF) | payer MEDICARE, MEDICAID, SELFPAY ==
[2023-06-26 14:50] LABS: MANUAL DIFF FLAG NO
[2023-06-26 14:57] LABS: Basophils Percent Auto 0.3 % (0-2); Eosinophils Absolute Auto 0.3 X10*3/uL (0.0-0.4); Eosinophils Percent Auto 3.7 % (0-4); Hematocrit 43.6 % (42.0-52.0); Hemoglobin 15.1 g/dl (14.0-18.0); Imm Gran Abs Auto 0.02 X10*3/uL (0.00-0.03); Imm Gran Pct Auto 0.3 % (0.0-0.4); Lymphocytes Absolute Auto 2.1 X10*3/uL (1.2-4.9); Lymphocytes Percent Auto 28.4 % (20-40); Mean Corpuscular HGB Conc 34.6 g/dl (31.0-36.0); Mean Corpuscular Hemoglobin 30.1 pg (27.0-33.0); Mean Corpuscular Volume 86.9 fL (80.0-98.0); Mean Platelet Volume 11.3 fL (9.4-12.4); Monocytes Absolute Auto 0.7 X10*3/uL (0.1-1.2); Monocytes Percent Auto 9.2 % (2-11); Neutrophils Absolute Auto 4.4 x10*3/uL (2.0-8.3); Neutrophils Percent Auto 58.1 % (45-73); Platelet Count 189 X10*3/uL (160-400); Red Blood Count 5.02 X10*6/uL (4.60-5.80); Red Cell Distribution Width 13.1 % (11.0-16.0); White Blood Count 7.5 X10*3/uL (4.8-10.8)
[2023-06-26 15:26] LABS: Alanine Aminotransferase 34 U/L (0-40); Albumin Level 4.4 g/dL (3.5-5.0); Alkaline Phosphatase 64 U/L (39-117); Anion Gap 12 (12-20); Aspartate Amino Transferase 35 U/L (5-37); Bilirubin Total 0.9 mg/dL (0.0-1.0); Blood Urea Nitrogen 16 mg/dL (9-16); Calcium 9.7 mg/dL (8.4-10.2); Carbon Dioxide 23 mmol/L (22-29); Chloride 108 mmol/L (96-108); Estimated Glomerular Filt Rate > 60; Glucose Fasting 105 mg/dL (60-99); Potassium 4.4 mmol/L (3.3-5.1); Sodium 139 mmol/L (135-145); TSH reflex Free T4 2.96 uIU/mL (0.32-4.0); Total Protein 7.7 g/dL (6.5-8.0)
[2023-06-28 09:08] LABS: Ceruloplasmin 23 mg/dL (18-36)
== END 2023-06-26 09:55 | disposition home or self-care (01) ==
LOC: HO.CHCLDS 09:54
PROVIDERS: Visit Provider Family Medicine
DX: R25.1 Tremor, unspecified (principal)
CPT/HCPCS: 36415; 80053; 82390; 84443; 85025

== ENCOUNTER 2023-07-11 09:22 | Outpatient (AMB) | payer MEDICARE, MEDICAID, SELFPAY ==
--- NOTE | 2023-07-11 09:25 | A.OFFVIS_ITS ---
Intake Vital Signs 07/11/23 09:26 Height 5 ft 6 in Weight 192 lb 3.889 oz BMI 31.0 BP 137/88 Blood Pressure Location Lt brachial Position Sitting Pulse 53 Pulse Source Pulse Oximeter Intake Visit Reasons: hyperthyroidism and multinodular goiter Intake Note: Patient present today for Hyperthyroidism and multinodular goiter follow up visit. Chemical Engineering Technician Required: Yes Chemical Engineering Technician Language: Setswana Chemical Engineering Technician Name: Ashia daughter Information Interpreted: non-clinical & clinical Accompanied by: Daughter Allergies No Known Allergies [No Known Allergies*] Allergy (Verified 07/11/23 09:33) Medication List - Last Reconciled 07/11/23 by Eugene Lake MD diltiazem HCl ER (DILT-XR) 240 mg PO DAILY lisinopril 2.5 mg PO DAILY warfarin 2.5 mg See Protocol PO DAILY HPI HPI Comments History of Present Illness Details 72 YO F with PMHx a-fib who is seen in consultation for low TSH at the request of PCP. Just found out about abnormal TSH Currently denies any dysphagia or hoarseness of voice. Denies sensation of swelling in the neck or difficulty breathing while lying flat. Denies any tenderness in the neck. Denies any palpitations, tremors, weight loss, frequent bowel movements. Denies any ocular complaints, blurred or double vision. Denies hair loss, dry skin, heat or cold intolerance, weight gain, confusion. Denies any history of head or neck irradiation. Denies any family history of th yroid cancer or thyroid problems . No recent use of steroids or amiodarone Thyroid uptake and scan showed normal uptake but personal review of scan showed hot right nodule although was not read as such. He is currently off methimazole . Labs: Recent blood work showed elevation TSH and methimazole was stopped. Thyroid levels have remained normal off methimazole Ordering Physician: Eugene Lake MD Date of Service: 05/28/23 Procedure(s): US thyroid Accession Number(s): [id number] cc: Jovany Peng MD; Eugene Lake MD~ EXAMINATION: US THYROID CLINICAL INFORMATION: Nontoxic multinodular goiter. COMPARISON: Ultrasound soft tissue head/neck thyroid dated 05/29/2022. TECHNIQUE: Linear transducer grayscale and color Doppler examination with attention to the region of the thyroid. FINDINGS: SIZE: Measurements of the thyroid lobes and nodules are given in sagittal, anteroposterior and transverse dimensions respectively. Right Thyroid Lobe: 5.7 x 1.7 x 1.8 cm, volume 9.1 mL. Previously 5.8 x 1.7 x 2.4 cm, volume 12.4 mL. Parenchyma: The gland echotexture is homogeneous. Thyroid vascularity is normal. Left Thyroid Lobe: 4.1 x 1.7 x 2.1 cm, volume 7.7 mL. Previously 4.2 x 1.4 x 1.5 cm, volume 4.6 mL. Parenchyma: The gland echotexture is homogeneous. Thyroid vascularity is normal. Isthmus: 0.3 cm in maximum AP dimension. Previously 0.4 cm. Estimated total number of nodules greater than or equal to 1 cm: 2. Coordinator Of Health Services nodules are described as follows: 1. Location: Left mid. Size: 1.7 x 0.9 x 1.4 cm, volume 1.08 mL. Previously: 0.9 x 0.5 x 0.9 cm, volume 0.24 mL. Nodule characteristics: Composition: Solid (2). Echogenicity: Isoechoic (1). Shape: Not taller than wide (0). Margins: Smooth (0). Echogenic Foci: Punctate echogenic foci (3). ACR TI-RADS total points: 6 Previous: 6 ACR TI-RADS category: 4 Previous: 4 Significant change in size (>/= 20% in 2 dimensions and minimal increase of 2 mm or 50% or greater increase in volume): Yes Change in features: No Change in ACR TI-RADS risk category: No 2. Location: Left superior. Size: 0.8 x 0.5 x 0.5 cm, volume 0.11 mL. Previously: This nodule is new. Nodule characteristics: Composition: Solid (2). Echogenicity: Hypoechoic (2). Shape: Not taller than wide (0). Margins: Smooth (0). Echogenic Foci: None (0). ACR TI-RADS total points: 4 ACR TI-RADS category: 4 3. Location: Right mid/superior. Size: 0.8 x 0.5 x 0.5 cm, volume 0.10 mL. Previously: 0.7 x 0.5 x 0.6 cm, volume 0.10 mL. Nodule characteristics: Composition: Solid (2). Echogenicity: Hyperechoic (1). Shape: Not taller than wide (0). Margins: Smooth (0). Echogenic Foci: None (0). ACR TI-RADS total points: 3 Previous: 3 ACR TI-RADS category: 3 Previous: 3 Significant change in size (>/= 20% in 2 dimensions and minimal increase of 2 mm or 50% or greater increase in volume): No Change in features: No Change in ACR TI-RADS risk category: No 4. Location: Right mid. Size: 0.7 x 0.7 x 0.7 cm, volume 0.18 mL. Previously: 0.7 x 0.7 x 0.6 cm, volume 0.14 mL. Nodule characteristics: Composition: Solid (2). Echogenicity: Hyperechoic (1). Shape: Not taller than wide (0). Margins: Smooth (0). Echogenic Foci: None (0). ACR TI-RADS total points: 3 Previous: 6 ACR TI-RADS category: 3 Previous: 4 Significant change in size (>/= 20% in 2 dimensions and minimal increase of 2 mm or 50% or greater increase in volume): No Change in features: Yes, no longer taller than wide Change in ACR TI-RADS risk category: Yes 5. Location: Right inferior. Size: 1.0 x 1.0 x 1.2 cm, volume 0.60 mL. Previously: 1.1 x 1.2 x 1.3 cm, volume 0.92 mL. Nodule characteristics: Composition: Mixed cystic and solid (1). Echogenicity: Isoechoic (1). Shape: Not taller than wide (0). Margins: Ill-defined (0). Echogenic Foci: Peripheral calcifications (2). ACR TI-RADS total points: 4 ACR TI-RADS category: 4 Significant change in size (>/= 20% in 2 dimensions and minimal increase of 2 mm or 50% or greater increase in volume): No Change in features: Not accounting for differences in interobserver variability. Change in ACR TI-RADS risk category: No NODES: No lymphadenopathy is seen in the tissue surrounding the thyroid gland. US/US thyroid IMPRESSION: 1.7 cm TR 4 left mid thyroid nodule whic h meets criteria for tissue sampling if not ready obtained. A 1.2 cm TR 4 right inferior thyroid nodule meets criteria not significant changed when accounting for differences in interobserver variability meets criteria for continued sonographic surveillance in one year as detailed below. [facility] Medical History (Updated 07/11/23 @ 09:59 by Eugene Lake MD) Multinodular goiter (nontoxic) Low TSH level Surgical History History of total right hip arthroplasty History of surgery Hx of colonoscopy Hx of hernia repair Family History Father No problems noted. Mother No problems noted. Sister Stroke Social History Household Members: Spouse Alcohol intake: current Alcohol intake frequency: does not drink Patient Tobacco Use Status: Former Tobacco user Tobacco use type: Cigarette Physical Exam Vital Signs: Last Vital Signs Pulse 53 07/11/23 09:26 BP 137/88 07/11/23 09:26 BMI result Body Mass Index 31.0 HEENT reveals absence of lid lag , stare or proptosis or eyebrow loss. Thyroid gland measure 15 gms . No nodules or tenderness palpated. There is no c ervical adenopathy palpated. Lungs CTA. Heart S1, S2 irReg Irreg R/R -M/R/G. Abdominal exam benign. Skin exam reveals absence of dryness or thyroid dermopathy or vitiligo. Nail exam reveals absence of thyroid acropachy or oncholysis. Neurologic exam reveals 2+ reflexes . Muscle Strength is 5/5 proximally. There are no tremors in upper extremities. Assessment & Plan Assessment & Plan (1) Low TSH level: Code(s): R79.89 - Other specified abnormal findings of blood chemistry Plan: This 71-year-old male with a history of undetectable TSH with normal free T4 and free T3 in the setting of atrial fibrillation. Currently off methimazole. Antibodies were negative for Graves disease. He is clinically biochemically euthyroid. Plan is to discuss with patient possible FNA of A left midpole nodule . Will send to Dr. Pierce at [facility] for further evaluation and possible biopsy left nodule (2) Multinodular goiter (nontoxic): Code(s): E04.2 - Nontoxic multinodular goiter Orders: Referrals Endocrinology Referral E04.2 - Nontoxic multinodular goiter Coding Level of Care Code Est Pt Level 3 (05360) Diagnoses Low TSH level R79.89 Multinodular goiter (nontoxic) E04.2
[2023-07-11 09:26] VITALS: BP 137/88; PULSE 53; BMI 31.0
== END 2023-07-11 10:04 | disposition home or self-care (01) ==
PROVIDERS: PCP Internal Medicine; Referring Provider Internal Medicine; Visit Provider Internal Medicine Endocrinology, Diabetes & Metabolism
DX: R79.89 Other specified abnormal findings of blood chemistry (principal); E04.2 Nontoxic multinodular goiter
CPT/HCPCS: 99213

== ENCOUNTER → 2023-07-11 09:22 | Outpatient (BNVA) | payer MEDICARE, MEDICAID, SELFPAY | PROVIDERS: PCP Internal Medicine; Referring Provider Internal Medicine; Visit Provider Internal Medicine Endocrinology, Diabetes & Metabolism | DX: E04.2 Nontoxic multinodular goiter (principal); R79.89 Other specified abnormal findings of blood chemistry | CPT/HCPCS: 99212 ==

== ENCOUNTER 2023-07-12 13:21 | Outpatient (AMB) | payer MEDICARE, MEDICAID, SELFPAY ==
[2023-07-12 13:26] LABS: ~PT, ~INR - Anti Coag Clinic 1.8 (0.9-1.1)
--- NOTE | 2023-07-12 13:29 | MHC.OFFVISCO ---
Intake Intake Visit Reasons: Anticoagulation Allergies No Known Allergies [No Known Allergies*] Allergy (Verified 07/12/23 13:21) Medication List - Last Reconciled 07/12/23 by Ximena Mukherjee RN diltiazem HCl ER (DILT-XR) 240 mg PO DAILY lisinopril 2.5 mg PO DAILY warfarin 2.5 mg See Protocol PO DAILY Nursing Note INR 1.8 out of therapeutic range Medications and supplements reviewed Patient status: ATE MORE MILK CHOCOLATE RECENTLY Medications or supplements: NO CHANGES Diet: GOOD Denies any signs and symptoms of bleeding or clotting or unusual bruising Bleeding, bruising, clotting discussed Nutritional guidance given: NO GREENS OR CHOCOLATE TODAY THEN RESUME USUAL DIET Dose: 10MG X 4DAYS THIS WEEK THEN RESUME USUAL DOSE 10MG X 3 DAYS/ 7.5MG X 4 DAYS F/U INR Date : 2 WEEKS , THEN IF STABLE RESUME Q 4WEEKS ?? Patient verbalizing understanding of instructions given. 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
== END 2023-07-12 13:33 | disposition home or self-care (01) ==
LOC: HO.ACS 13:21
PROVIDERS: PCP Internal Medicine; Visit Provider Internal Medicine
DX: Z79.01 Long term (current) use of anticoagulants (principal)

== ENCOUNTER → 2023-07-12 13:21 | Outpatient (BNVA) | payer MEDICARE, MEDICAID, SELFPAY | PROVIDERS: PCP Internal Medicine; Visit Provider Internal Medicine | DX: I48.0 Paroxysmal atrial fibrillation (principal); Z79.01 Long term (current) use of anticoagulants; Z51.81 Encounter for therapeutic drug level monitoring | CPT/HCPCS: 85610; 99211 ==

== ENCOUNTER 2023-07-26 13:17 | Outpatient (AMB) | payer MEDICARE, MEDICAID, SELFPAY ==
[2023-07-26 13:32] LABS: Prothrombin Time Whole Bld POC 25.8 sec (11.1-13.5); ~PT, ~INR - Anti Coag Clinic 2.2 (0.9-1.1)
--- NOTE | 2023-07-26 13:34 | MHC.OFFVISCO ---
Intake Intake Visit Reasons: Anticoagulation Allergies No Known Allergies [No Known Allergies*] Allergy (Verified 07/26/23 13:25) Medication List - Last Reconciled 07/26/23 by Tomasa Osuna RN diltiazem HCl ER (DILT-XR) 240 mg PO DAILY lisinopril 2.5 mg PO DAILY warfarin 2.5 mg See Protocol PO DAILY Nursing Note Amb to ACS feeling well Medications and supplements reviewed No changes in health, diet, medications, or supplements Denies any unusual signs and symptoms of bruising, bleeding Denies any new Chest pain, SOB, or clotting INR:2.2 now in therapeutic range Nutritional guidance given: balance greens and reds in diet, be aware of the reds that raise over thanksgiving Dose: continue usual dosing; 10mg x 3 days and 7.5mg x 4 days F/U INR: 2 weeks Patient verbalizes understanding of instructions given with accurate read back/ teach back of dosing Anti-Coag Initial Assessment Social Hx Patient Tobacco Use Status: Former Tobacco user Tobacco use type: Cigarette alcohol intake: current Alcohol intake frequency: does not drink Coding Level of Care Code Est Patient Level 1 Diagnoses Current use of anticoagulant therapy Z79.01 Time Spent (min) 15 Assessment & Plan Assessment & Plan (1) Current use of anticoagulant therapy: Code(s): Z79.01 - residential (current) use of anticoagulants Category: Medical
== END 2023-07-26 13:37 | disposition home or self-care (01) ==
LOC: HO.ACS 13:17
PROVIDERS: PCP Internal Medicine; Visit Provider Internal Medicine
DX: Z79.01 Long term (current) use of anticoagulants (principal)

== ENCOUNTER → 2023-07-26 13:17 | Outpatient (BNVA) | payer MEDICARE, MEDICAID, SELFPAY | PROVIDERS: PCP Internal Medicine; Visit Provider Internal Medicine | DX: I48.0 Paroxysmal atrial fibrillation (principal); Z79.01 Long term (current) use of anticoagulants; Z51.81 Encounter for therapeutic drug level monitoring | CPT/HCPCS: 85610; 99211 ==

== ENCOUNTER 2023-08-09 13:10 | Outpatient (AMB) | payer MEDICARE, MEDICAID, SELFPAY ==
[2023-08-09 13:36] LABS: Prothrombin Time Whole Bld POC 27.6 sec (11.1-13.5); ~PT, ~INR - Anti Coag Clinic 2.3 (0.9-1.1)
--- NOTE | 2023-08-09 13:39 | MHC.OFFVISCO ---
Intake Intake Visit Reasons: Anticoagulation Allergies No Known Allergies [No Known Allergies*] Allergy (Verified 08/09/23 13:36) Medication List - Last Reconciled 08/09/23 by Ximena Mukherjee RN diltiazem HCl ER (DILT-XR) 240 mg PO DAILY lisinopril 2.5 mg PO DAILY warfarin 2.5 mg See Protocol PO DAILY Nursing Note INR: 2.3 in therapeutic range Medications and supplements reviewed No changes in health, diet, medications, or supplements, Denies any signs and symptoms of bleeding or bruising or clotting. 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
== END 2023-08-09 13:40 | disposition home or self-care (01) ==
LOC: HO.ACS 13:10
PROVIDERS: PCP Internal Medicine; Visit Provider Internal Medicine
DX: Z79.01 Long term (current) use of anticoagulants (principal)

== ENCOUNTER → 2023-08-09 13:10 | Outpatient (BNVA) | payer MEDICARE, MEDICAID, SELFPAY | PROVIDERS: PCP Internal Medicine; Visit Provider Internal Medicine | DX: I48.0 Paroxysmal atrial fibrillation (principal); Z79.01 Long term (current) use of anticoagulants; Z51.81 Encounter for therapeutic drug level monitoring | CPT/HCPCS: 85610; 99211 ==

== ENCOUNTER 2023-09-13 13:08 | Outpatient (AMB) | payer MEDICARE, MEDICAID, SELFPAY ==
--- NOTE | 2023-09-13 13:16 | MHC.OFFVISCO ---
Intake Intake Visit Reasons: Anticoagulation Allergies No Known Allergies [No Known Allergies*] Allergy (Verified 09/13/23 13:08) Medication List - Last Reconciled 09/13/23 by Kailee Ma RN diltiazem HCl ER (DILT-XR) 240 mg PO DAILY lisinopril 2.5 mg PO DAILY warfarin 2.5 mg See Protocol PO DAILY Nursing Note NO CP,SOB,DIET/ME CHANGES,FALLS OR SX OF BLEEDING. CONTINUE PRESENT DOSE AND FOLLOW-UP IN 4 WEEKS. GOOD UNDERSTANDING OF DOSING INSTR Anti-Coag Initial Assessment Social Hx Patient Tobacco Use Status: Former Tobacco user Tobacco use type: Cigarette alcohol intake: current Alcohol intake frequency: does not drink Coding Level of Care Code Est Patient Level 1 Diagnoses Current use of anticoagulant therapy Z79.01 Assessment & Plan Assessment & Plan (1) Current use of anticoagulant therapy: Code(s): Z79.01 - [facility] (current) use of anticoagulants Category: Medical
== END 2023-09-13 13:18 | disposition home or self-care (01) ==
LOC: HO.ACS 13:08
PROVIDERS: PCP Internal Medicine; Visit Provider Internal Medicine
DX: Z79.01 Long term (current) use of anticoagulants (principal)

== ENCOUNTER → 2023-09-13 13:08 | Outpatient (BNVA) | payer MEDICARE, MEDICAID, SELFPAY | PROVIDERS: PCP Internal Medicine; Visit Provider Internal Medicine | DX: I48.0 Paroxysmal atrial fibrillation (principal); Z79.01 Long term (current) use of anticoagulants; Z51.81 Encounter for therapeutic drug level monitoring | CPT/HCPCS: 85610; 99211 ==

== ENCOUNTER 2023-10-11 13:17 | Outpatient (AMB) | payer MEDICARE, MEDICAID, SELFPAY ==
--- NOTE | 2023-10-11 13:28 | MHC.OFFVISCO ---
Intake Intake Visit Reasons: Anticoagulation Allergies No Known Allergies [No Known Allergies*] Allergy (Verified 10/11/23 13:32) Medication List - Last Reconciled 10/11/23 by Giulia Cifuentes RN diltiazem HCl ER (DILT-XR) 240 mg PO DAILY lisinopril 2.5 mg PO DAILY warfarin 2.5 mg See Protocol PO DAILY Nursing Note INR: 2.1- in therapeutic range of 2-3 Medications and supplements reviewed- no changes No changes in health, diet, medications, or supplements, Denies any signs and symptoms of bleeding or bruising or clotting. Bleeding, bruising, clotting discussed Nutritional guidance given Dose: 10mg x 3, 7.5mg x 4 F/U INR: 4 weeks Patient verbalizes understanding of instructions given Anti-Coag Initial Assessment Social Hx Patient Tobacco Use Status: Former Tobacco user Tobacco use type: Cigarette alcohol intake: current Alcohol intake frequency: does not drink Coding Level of Care Code Est Patient Level 1 Diagnoses Current use of anticoagulant therapy Z79.01 Results AMB INR Fingerstick AMB INR Fingerstick 2.1 Last Edit by Giulia Cifuentes RN on 10/11/23 13:29 Assessment & Plan Assessment & Plan (1) Current use of anticoagulant therapy: Code(s): Z79.01 - alf (current) use of anticoagulants Category: Medical
[2023-10-11 13:29] LABS: Prothrombin Time Whole Bld POC 25.5 sec (11.1-13.5); ~PT, ~INR - Anti Coag Clinic 2.1 (0.9-1.1)
== END 2023-10-11 13:33 | disposition home or self-care (01) ==
LOC: HO.ACS 13:17
PROVIDERS: PCP Internal Medicine; Visit Provider Internal Medicine
DX: Z79.01 Long term (current) use of anticoagulants (principal)

== ENCOUNTER → 2023-10-11 13:17 | Outpatient (BNVA) | payer MEDICARE, MEDICAID, SELFPAY | PROVIDERS: PCP Internal Medicine; Visit Provider Internal Medicine | DX: I48.0 Paroxysmal atrial fibrillation (principal); Z79.01 Long term (current) use of anticoagulants; Z51.81 Encounter for therapeutic drug level monitoring | CPT/HCPCS: 85610; 99211 ==

== ENCOUNTER 2023-11-08 13:03 | Outpatient (AMB) | payer MEDICARE, MEDICAID, SELFPAY ==
[2023-11-08 13:11] LABS: Prothrombin Time Whole Bld POC 29.3 sec (11.1-13.5); ~PT, ~INR - Anti Coag Clinic 2.4 (0.9-1.1)
--- NOTE | 2023-11-08 13:11 | MHC.OFFVISCO ---
Intake Intake Visit Reasons: Anticoagulation Allergies No Known Allergies [No Known Allergies*] Allergy (Verified 11/08/23 13:05) Medication List - Last Reconciled 11/08/23 by Giulia Cifuentes RN diltiazem HCl ER (DILT-XR) 240 mg PO DAILY lisinopril 2.5 mg PO DAILY warfarin 2.5 mg See Protocol PO DAILY Nursing Note INR: 2.4- in therapeutic range of 2-3 Medications and supplements reviewed- no changes No changes in health, diet, medications, or supplements, Denies any signs and symptoms of bleeding or bruising or clotting. 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
== END 2023-11-08 13:15 | disposition home or self-care (01) ==
LOC: HO.ACS 13:03
PROVIDERS: PCP Internal Medicine; Visit Provider Internal Medicine
DX: Z79.01 Long term (current) use of anticoagulants (principal)

== ENCOUNTER → 2023-11-08 13:03 | Outpatient (BNVA) | payer MEDICARE, MEDICAID, SELFPAY | PROVIDERS: PCP Internal Medicine; Visit Provider Internal Medicine | DX: I48.0 Paroxysmal atrial fibrillation (principal); Z79.01 Long term (current) use of anticoagulants; Z51.81 Encounter for therapeutic drug level monitoring | CPT/HCPCS: 85610; 99211 ==

== ENCOUNTER 2023-12-06 13:03 | Outpatient (AMB) | payer MEDICARE, MEDICAID, SELFPAY ==
[2023-12-06 13:10] LABS: Prothrombin Time Whole Bld POC 27.9 sec (11.1-13.5); ~PT, ~INR - Anti Coag Clinic 2.3 (0.9-1.1)
--- NOTE | 2023-12-06 13:14 | MHC.OFFVISCO ---
Intake Intake Visit Reasons: Anticoagulation Allergies No Known Allergies [No Known Allergies*] Allergy (Verified 12/06/23 13:04) Medication List - Last Reconciled 12/06/23 by Tomasa Sadler RN diltiazem HCl ER (DILT-XR) 240 mg PO DAILY lisinopril 2.5 mg PO DAILY warfarin 2.5 mg See Protocol PO DAILY Nursing Note INR: 2.3 in therapeutic range of 2-3 Medications and supplements reviewed: no changes No changes in health, diet, medications, or supplements, Denies any signs and symptoms of bleeding or bruising or clotting. 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
== END 2023-12-06 13:19 | disposition home or self-care (01) ==
LOC: HO.ACS 13:03
PROVIDERS: PCP Internal Medicine; Visit Provider Internal Medicine
DX: Z79.01 Long term (current) use of anticoagulants (principal)

== ENCOUNTER → 2023-12-06 13:03 | Outpatient (BNVA) | payer MEDICARE, MEDICAID, SELFPAY | PROVIDERS: PCP Internal Medicine; Visit Provider Internal Medicine | DX: I48.0 Paroxysmal atrial fibrillation (principal); Z79.01 Long term (current) use of anticoagulants; Z51.81 Encounter for therapeutic drug level monitoring | CPT/HCPCS: 85610; 99211 ==

== ENCOUNTER 2024-01-03 13:05 | Outpatient (AMB) | payer MEDICARE, MEDICAID, SELFPAY ==
--- NOTE | 2024-01-03 13:10 | MHC.OFFVISCO ---
Intake Intake Visit Reasons: Anticoagulation Allergies No Known Allergies [No Known Allergies*] Allergy (Verified 01/03/24 13:06) Medication List - Last Reconciled 01/03/24 by Giulia Cifuentes RN diltiazem HCl ER (DILT-XR) 240 mg PO DAILY lisinopril 2.5 mg PO DAILY warfarin 2.5 mg See Protocol PO DAILY Nursing Note INR: 2.4- in therapeutic range of 2-3 Medications and supplements reviewed- no changes No changes in health, diet, medications, or supplements, Denies any signs and symptoms of bleeding or bruising or clotting. 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
[2024-01-03 13:11] LABS: Prothrombin Time Whole Bld POC 29.2 sec (11.1-13.5); ~PT, ~INR - Anti Coag Clinic 2.4 (0.9-1.1)
== END 2024-01-03 13:16 | disposition home or self-care (01) ==
LOC: HO.ACS 13:05
PROVIDERS: PCP Internal Medicine; Visit Provider Internal Medicine
DX: Z79.01 Long term (current) use of anticoagulants (principal)

== ENCOUNTER → 2024-01-03 13:05 | Outpatient (BNVA) | payer MEDICARE, MEDICAID, SELFPAY | PROVIDERS: PCP Internal Medicine; Visit Provider Internal Medicine | DX: I48.0 Paroxysmal atrial fibrillation (principal); Z51.81 Encounter for therapeutic drug level monitoring; Z79.899 Other long term (current) drug therapy | CPT/HCPCS: 85610; 99211 ==

== ENCOUNTER 2024-01-31 13:16 | Outpatient (AMB) | payer MEDICARE, MEDICAID, SELFPAY ==
[2024-01-31 13:21] LABS: Prothrombin Time Whole Bld POC 31.9 sec (11.1-13.5); ~PT, ~INR - Anti Coag Clinic 2.7 (0.9-1.1)
--- NOTE | 2024-01-31 13:21 | MHC.OFFVISCO ---
Intake Intake Visit Reasons: Anticoagulation Allergies No Known Allergies [No Known Allergies*] Allergy (Verified 01/31/24 13:17) Medication List - Last Reconciled 01/31/24 by Giulia Cifuentes RN diltiazem HCl ER (DILT-XR) 240 mg PO DAILY lisinopril 2.5 mg PO DAILY warfarin 2.5 mg See Protocol PO DAILY Nursing Note INR: 2.7 in therapeutic range of 2-3 Medications and supplements reviewed- no changes No changes in health, diet, medications, or supplements, Denies any signs and symptoms of bleeding or bruising or clotting. Bleeding, bruising, clotting discussed Nutritional guidance given Dose: 10mg x 3, 7.5mg x 4 F/U INR: pt traveling to [place] for 3 weeks, leaving on 02/21/24- ref earlier appt Patient verbalizes understanding of instructions given Anti-Coag Initial Assessment Social Hx Patient Tobacco Use Status: Former Tobacco user Tobacco use type: Cigarette alcohol intake: current Alcohol intake frequency: does not drink Coding Level of Care Code Est Patient Level 1 Diagnoses Current use of anticoagulant therapy Z79.01 Assessment & Plan Assessment & Plan (1) Current use of anticoagulant therapy: Code(s): 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
== END 2024-01-31 13:31 | disposition home or self-care (01) ==
LOC: HO.ACS 13:16
PROVIDERS: PCP Internal Medicine; Visit Provider Internal Medicine
DX: Z79.01 Long term (current) use of anticoagulants (principal)

== ENCOUNTER → 2024-01-31 13:16 | Outpatient (BNVA) | payer MEDICARE, MEDICAID, SELFPAY | PROVIDERS: PCP Internal Medicine; Visit Provider Internal Medicine | DX: I48.0 Paroxysmal atrial fibrillation (principal); Z79.01 Long term (current) use of anticoagulants; Z51.81 Encounter for therapeutic drug level monitoring | CPT/HCPCS: 85610; 99211 ==

== ENCOUNTER 2024-03-16 14:44 | Outpatient (AMB) | payer MEDICARE, MEDICAID, SELFPAY ==
[2024-03-16 15:03] LABS: Prothrombin Time Whole Bld POC 22.5 sec (11.1-13.5); ~PT, ~INR - Anti Coag Clinic 1.9 (0.9-1.1)
--- NOTE | 2024-03-16 15:08 | MHC.OFFVISCO ---
Intake Intake Visit Reasons: Anticoagulation Allergies No Known Allergies [No Known Allergies*] Allergy (Verified 03/16/24 14:58) Medication List - Last Reconciled 03/16/24 by Tomasa Sadler RN diltiazem HCl ER (DILT-XR) 240 mg PO DAILY lisinopril 2.5 mg PO DAILY warfarin 2.5 mg See Protocol PO DAILY Nursing Note INR 1.9?out of therapeutic rangeof 2-3 Returned yesterday from a 3 week vacation to [place] and [facility] Medications and supplements reviewed Patient status: well Medications or supplements: no changes Diet: a little out of pt's normal day to day diet while he was traveling Denies any signs and symptoms of bleeding or clotting or unusual bruising Bleeding, bruising, clotting discussed Nutritional guidance given: No greens today or tomorrow and pt to have a serving of foods from the list that raises the INR. Food list reviewed. Dose: 7.5mg X 4 days and 10mg X 3 days F/U INR Date : 4 weeks?? Patient verbalizing understanding of instructions given. Anti-Coag Initial Assessment Social Hx Patient Tobacco Use Status: Former Tobacco user Tobacco use type: Cigarette alcohol intake: current Alcohol intake frequency: does not drink Coding Level of Care Code Est Patient Level 1 Diagnoses Current use of anticoagulant therapy Z79.01 Assessment & Plan Assessment & Plan (1) Current use of anticoagulant therapy: Code(s): Z79.01 - [facility] (current) use of anticoagulants Category: Medical
== END 2024-03-16 15:12 | disposition home or self-care (01) ==
LOC: HO.ACS 14:44
PROVIDERS: PCP Internal Medicine; Visit Provider Internal Medicine
DX: Z79.01 Long term (current) use of anticoagulants (principal)

== ENCOUNTER → 2024-03-16 14:44 | Outpatient (BNVA) | payer MEDICARE, MEDICAID, SELFPAY | PROVIDERS: PCP Internal Medicine; Visit Provider Internal Medicine | DX: I48.0 Paroxysmal atrial fibrillation (principal); Z51.81 Encounter for therapeutic drug level monitoring; Z79.01 Long term (current) use of anticoagulants | CPT/HCPCS: 85610; 99211 ==

== ENCOUNTER 2024-04-17 14:05 | Outpatient (AMB) | payer MEDICARE, MEDICAID, SELFPAY ==
[2024-04-17 14:12] LABS: Prothrombin Time Whole Bld POC 31.9 sec (11.1-13.5); ~PT, ~INR - Anti Coag Clinic 2.7 (0.9-1.1)
--- NOTE | 2024-04-17 14:19 | MHC.OFFVISCO ---
Intake Intake Visit Reasons: Anticoagulation Allergies No Known Allergies [No Known Allergies*] Allergy (Verified 04/17/24 14:06) Medication List - Last Reconciled 04/17/24 by Ximena Mukherjee RN diltiazem HCl ER (DILT-XR) 240 mg PO DAILY lisinopril 2.5 mg PO DAILY warfarin 2.5 mg See Protocol PO DAILY Nursing Note INR: 2.7 in therapeutic range Medications and supplements reviewed No changes in health, diet, medications, or supplements, Denies any signs and symptoms of bleeding or bruising or clotting. 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
== END 2024-04-17 14:20 | disposition home or self-care (01) ==
LOC: HO.ACS 14:05
PROVIDERS: PCP Internal Medicine; Visit Provider Internal Medicine
DX: Z79.01 Long term (current) use of anticoagulants (principal)

== ENCOUNTER → 2024-04-17 14:05 | Outpatient (BNVA) | payer MEDICARE, MEDICAID, SELFPAY | PROVIDERS: PCP Internal Medicine; Visit Provider Internal Medicine | DX: I48.0 Paroxysmal atrial fibrillation (principal); Z79.01 Long term (current) use of anticoagulants; Z51.81 Encounter for therapeutic drug level monitoring | CPT/HCPCS: 85610; 99211 ==

== ENCOUNTER 2024-05-15 13:02 | Outpatient (AMB) | payer MEDICARE, MEDICAID, SELFPAY ==
[2024-05-15 13:08] LABS: Prothrombin Time Whole Bld POC 30.4 sec (11.1-13.5); ~PT, ~INR - Anti Coag Clinic 2.5 (0.9-1.1)
--- NOTE | 2024-05-15 13:10 | MHC.OFFVISCO ---
Intake Intake Visit Reasons: Anticoagulation Allergies No Known Allergies [No Known Allergies*] Allergy (Verified 05/15/24 13:03) Medication List - Last Reconciled 05/15/24 by Ximena Mukherjee RN diltiazem HCl ER (DILT-XR) 240 mg PO DAILY lisinopril 2.5 mg PO DAILY warfarin 2.5 mg See Protocol PO DAILY Nursing Note INR: 2.7 in therapeutic range Medications and supplements reviewed No changes in health, diet, medications, or supplements, Denies any signs and symptoms of bleeding or bruising or clotting. 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
== END 2024-05-15 13:12 | disposition home or self-care (01) ==
LOC: HO.ACS 13:02
PROVIDERS: PCP Internal Medicine; Visit Provider Internal Medicine
DX: Z79.01 Long term (current) use of anticoagulants (principal)

== ENCOUNTER → 2024-05-15 13:02 | Outpatient (BNVA) | payer MEDICARE, MEDICAID, SELFPAY | PROVIDERS: PCP Internal Medicine; Visit Provider Internal Medicine | DX: I48.0 Paroxysmal atrial fibrillation (principal); Z79.01 Long term (current) use of anticoagulants; Z51.81 Encounter for therapeutic drug level monitoring | CPT/HCPCS: 85610; 99211 ==

== ENCOUNTER 2024-07-06 14:45 | Outpatient (AMB) | payer MEDICARE, MEDICAID, SELFPAY ==
[2024-07-06 14:52] LABS: Prothrombin Time Whole Bld POC 41.5 sec (11.1-13.5); ~PT, ~INR - Anti Coag Clinic 3.5 (0.9-1.1)
--- NOTE | 2024-07-06 14:58 | MHC.OFFVISCO ---
Intake Intake Visit Reasons: Anticoagulation Allergies No Known Allergies [No Known Allergies*] Allergy (Verified 07/06/24 14:46) Medication List - Last Reconciled 07/06/24 by Tomasa Sadler RN diltiazem HCl ER (DILT-XR) 240 mg PO DAILY lisinopril 2.5 mg PO DAILY warfarin 2.5 mg See Protocol PO DAILY Nursing Note INR: 3.5 in therapeutic range of 2-3 Medications and supplements reviewed No changes in health, diet, medications, or supplements, Denies any signs and symptoms of bleeding or bruising or clotting. Bleeding, bruising, clotting discussed Nutritional guidance given to have a serving of greens today. Pt states he will have cabbage. Also may have pickles. Dose: decrease today's dose to 7.5mg(10mg) then resume usual dose of 7.5mg X 4 days and 10mg X 3 days (Mon, Wed, Fri). F/U INR: suggested 2 weeks, pt insisted 4 weeks Patient verbalizes understanding of instructions given Anti-Coag Initial Assessment Social Hx Patient Tobacco Use Status: Former Tobacco user Tobacco use type: Cigarette alcohol intake: current Alcohol intake frequency: does not drink Coding Level of Care Code Est Patient Level 1 Diagnoses Current use of anticoagulant therapy Z79.01 Results AMB INR Fingerstick AMB INR Fingerstick 3.5 Last Edit by Tomasa Sadler RN on 07/06/24 14:52 interface delay Assessment & Plan Assessment & Plan (1) Current use of anticoagulant therapy: Code(s): Z79.01 - terminal clerk (current) use of anticoagulants Category: Medical
== END 2024-07-06 15:01 | disposition home or self-care (01) ==
LOC: HO.ACS 14:45
PROVIDERS: PCP Internal Medicine; Visit Provider Internal Medicine
DX: Z79.01 Long term (current) use of anticoagulants (principal)

== ENCOUNTER → 2024-07-06 14:45 | Outpatient (BNVA) | payer MEDICARE, MEDICAID, SELFPAY | PROVIDERS: PCP Internal Medicine; Visit Provider Internal Medicine | DX: I48.0 Paroxysmal atrial fibrillation (principal); Z79.01 Long term (current) use of anticoagulants; Z51.81 Encounter for therapeutic drug level monitoring | CPT/HCPCS: 85610; 99211 ==

== ENCOUNTER 2024-07-31 13:03 | Outpatient (AMB) | payer MEDICARE, MEDICAID, SELFPAY ==
[2024-07-31 13:15] LABS: Prothrombin Time Whole Bld POC 25.3 sec (11.1-13.5); ~PT, ~INR - Anti Coag Clinic 2.1 (0.9-1.1)
--- NOTE | 2024-07-31 13:24 | MHC.OFFVISCO ---
Intake Intake Visit Reasons: Anticoagulation Allergies No Known Allergies [No Known Allergies*] Allergy (Verified 07/31/24 13:09) Medication List - Last Reconciled 07/31/24 by Kailee Ma RN diltiazem HCl ER (DILT-XR) 240 mg PO DAILY lisinopril 2.5 mg PO DAILY warfarin 2.5 mg See Protocol PO DAILY Nursing Note NO CP,SOB,DIET/MED CHANGES,FALLS OR SX OF BLEEDING. CONTINUE PRESENT DOSE AND FOLLOW-UP IN 4 WEEKS. GOOD UNDERSTANDING OF DOSING INSTR. Anti-Coag Initial Assessment Social Hx Patient Tobacco Use Status: Former Tobacco user Tobacco use type: Cigarette alcohol intake: current Alcohol intake frequency: does not drink Coding Level of Care Code Est Patient Level 1 Diagnoses Current use of anticoagulant therapy Z79.01 Assessment & Plan Assessment & Plan (1) Current use of anticoagulant therapy: Code(s): Z79.01 - longterm (current) use of anticoagulants Category: Medical
== END 2024-07-31 14:55 | disposition home or self-care (01) ==
LOC: HO.ACS 13:03
PROVIDERS: PCP Internal Medicine; Visit Provider Internal Medicine
DX: Z79.01 Long term (current) use of anticoagulants (principal)

== ENCOUNTER → 2024-07-31 13:03 | Outpatient (BNVA) | payer MEDICARE, MEDICAID, SELFPAY | PROVIDERS: PCP Internal Medicine; Visit Provider Internal Medicine | DX: I48.0 Paroxysmal atrial fibrillation (principal); Z79.01 Long term (current) use of anticoagulants; Z51.81 Encounter for therapeutic drug level monitoring | CPT/HCPCS: 85610; 99211 ==

== ENCOUNTER 2024-08-28 13:19 | Outpatient (AMB) | payer MEDICARE, MEDICAID, SELFPAY ==
[2024-08-28 13:26] LABS: Prothrombin Time Whole Bld POC 22.7 sec (11.1-13.5); ~PT, ~INR - Anti Coag Clinic 1.9 (0.9-1.1)
--- NOTE | 2024-08-28 13:35 | MHC.OFFVISCO ---
Intake Intake Visit Reasons: Anticoagulation Allergies No Known Allergies [No Known Allergies*] Allergy (Verified 08/28/24 13:19) Medication List - Last Reconciled 08/28/24 by Ximena Mukherjee RN diltiazem HCl ER (DILT-XR) 240 mg PO DAILY lisinopril 2.5 mg PO DAILY warfarin 2.5 mg See Protocol PO DAILY Nursing Note INR 1.9? out of therapeutic range Medications and supplements reviewed Patient status: States he missed a dose this week Medications or supplements: no changes Diet: good Denies any signs and symptoms of bleeding or clotting or unusual bruising Bleeding, bruising, clotting discussed Nutritional guidance given: avoid greens today and tomorrow Dose: keep same dose 10mg x 3 days/ 7.5g x 4 days ( had a previous elevated INR in june of 3.5) last INR 2.1 F/U INR Date: 2 weeks then if therapeutic go 4 weeks?? Patient verbalizing understanding of instructions given. Anti-Coag Initial Assessment Social Hx Patient Tobacco Use Status: Former Tobacco user Tobacco use type: Cigarette alcohol intake: current Alcohol intake frequency: does not drink Questionnaires HAS-BLED Does the patient had uncontrolled Hypertension?: No Does the patient have renal disease?: No Does the patient have liver disease?: No Does the patient have a history of stroke?: No Has the patient had major bleeding or predisposition to bleeding?: No Does the patient have labile INRs?: No Is the patient over 65 years of age?: Yes Is the patient on medications that gives them a predisposition to bleeding?: Yes Does the patient use alcohol?: No HAS-BLED Score: 2 CHADSVASC Age: 75 or over Gender: Male Does the patient have a history of CHF?: No Does the patient have a history of Hypertension?: Yes Does the patient have a history of Stroke/TIA/Thromboembolism?: No Does the patient have a history of Vascular Disease (prior HI, PAD or aortic plaque)?: No Does the patient have a history of Diabetes?: No CHADS VACS Score: 3 Tarun Prediction Score Rsk VTE Active Cancer: No Previous VTE, excluding superficial vein thrombosis: No Reduced mobility: No Already known Thrombophilic Condition: No With-in last month Trauma and/or Surgery: No Elderly 70 year or older: Yes Heart and/or Respiratory Failure: No Acute Myocardial infarction and/or Ischemic Stroke: No Acute Infection and/or Rheumatologic Disorder: No Obesity (BMI 30 or greater): No Ongoing Hormonal Treatment: No Score: 1 Tarun Score less than 4; Low Risk of VTE Tarun Score 4 or greater; High Risk of VTE Coding Level of Care Code Est Patient Level 1 Diagnoses Current use of anticoagulant therapy Z79.01 Assessment & Plan Assessment & Plan (1) Current use of anticoagulant therapy: Code(s): Z79.01 - long-term (current) use of anticoagulants Category: Medical
== END 2024-08-28 13:45 | disposition home or self-care (01) ==
LOC: HO.ACS 13:19
PROVIDERS: PCP Internal Medicine; Visit Provider Internal Medicine
DX: Z79.01 Long term (current) use of anticoagulants (principal)

== ENCOUNTER → 2024-08-28 13:19 | Outpatient (BNVA) | payer MEDICARE, MEDICAID, SELFPAY | PROVIDERS: PCP Internal Medicine; Visit Provider Internal Medicine | DX: I48.0 Paroxysmal atrial fibrillation (principal); Z79.01 Long term (current) use of anticoagulants; Z51.81 Encounter for therapeutic drug level monitoring | CPT/HCPCS: 85610; 99211 ==

== ENCOUNTER 2024-09-11 13:01 | Outpatient (AMB) | payer MEDICARE, MEDICAID, SELFPAY ==
[2024-09-11 13:33] LABS: Prothrombin Time Whole Bld POC 26.9 sec (11.1-13.5); ~PT, ~INR - Anti Coag Clinic 2.2 (0.9-1.1)
--- NOTE | 2024-09-11 13:34 | MHC.OFFVISCO ---
Intake Intake Visit Reasons: Anticoagulation Allergies No Known Allergies [No Known Allergies*] Allergy (Verified 09/11/24 13:26) Medication List - Last Reconciled 09/11/24 by Ximena Mukherjee RN diltiazem HCl ER (DILT-XR) 240 mg PO DAILY lisinopril 2.5 mg PO DAILY methocarbamol 500 mg PO BID warfarin 2.5 mg See Protocol PO DAILY Nursing Note INR: 2.2 in therapeutic range Medications and supplements reviewed pt s/p fall on ice and fx ribs few days ago - enc deep breaths and splinting - has some bruising but healing Denies any signs and symptoms of bleeding or bruising or clotting. Bleeding, bruising, clotting discussed Nutritional guidance given Dose: 10MG X 3 DAYS/ 7.5MG X 4 DAYS F/U INR: 1 MONTH Patient verbalizes understanding of instructions given Anti-Coag Initial Assessment Social Hx Patient Tobacco Use Status: Former Tobacco user Tobacco use type: Cigarette alcohol intake: current Alcohol intake frequency: does not drink Coding Level of Care Code Est Patient Level 1 Diagnoses Current use of anticoagulant therapy Z79.01 Assessment & Plan Assessment & Plan (1) Current use of anticoagulant therapy: Code(s): Z79.01 - custodial (current) use of anticoagulants Category: Medical
== END 2024-09-11 13:38 | disposition home or self-care (01) ==
LOC: HO.ACS 13:01
PROVIDERS: PCP Internal Medicine; Visit Provider Internal Medicine
DX: Z79.01 Long term (current) use of anticoagulants (principal)

== ENCOUNTER → 2024-09-11 13:01 | Outpatient (BNVA) | payer MEDICARE, MEDICAID, SELFPAY | PROVIDERS: PCP Internal Medicine; Visit Provider Internal Medicine | DX: I48.0 Paroxysmal atrial fibrillation (principal); Z79.01 Long term (current) use of anticoagulants; Z51.81 Encounter for therapeutic drug level monitoring | CPT/HCPCS: 85610; 99211 ==

== ENCOUNTER → 2024-10-16 13:15 | Outpatient (AMB) | payer MEDICARE, MEDICAID, SELFPAY ==
[2024-10-16 13:24] LABS: Prothrombin Time Whole Bld POC 27.1 sec (11.1-13.5); ~PT, ~INR - Anti Coag Clinic 2.3 (0.9-1.1)
== END | disposition home or self-care (01) ==
PROVIDERS: PCP Internal Medicine; Visit Provider Internal Medicine

== ENCOUNTER → 2024-10-16 13:15 | Outpatient (BNVA) | payer MEDICARE, MEDICAID, SELFPAY | PROVIDERS: PCP Internal Medicine; Visit Provider Internal Medicine | DX: I48.0 Paroxysmal atrial fibrillation (principal); Z79.01 Long term (current) use of anticoagulants; Z51.81 Encounter for therapeutic drug level monitoring | CPT/HCPCS: 85610; 99211 ==

== ENCOUNTER 2024-11-13 13:08 | Outpatient (AMB) | payer MEDICARE, MEDICAID, SELFPAY ==
[2024-11-13 13:15] LABS: Prothrombin Time Whole Bld POC 28.9 sec (11.1-13.5); ~PT, ~INR - Anti Coag Clinic 2.4 (0.9-1.1)
--- NOTE | 2024-11-13 13:17 | MHC.OFFVISCO ---
Intake Intake Visit Reasons: Anticoagulation Allergies No Known Allergies [No Known Allergies*] Allergy (Verified 11/13/24 13:09) Medication List - Last Reconciled 11/13/24 by Tomasa Sadler, DEEPA diltiazem HCl ER (DILT-XR) 240 mg PO DAILY lisinopril 2.5 mg PO DAILY methocarbamol 500 mg PO BID spironolactone 12.5 mg PO DAILY warfarin 2.5 mg See Protocol PO DAILY Nursing Note INR: 2.4 in therapeutic range of 2-3 Medications and supplements reviewed No changes in health, diet, medications, or supplements, Denies any signs and symptoms of bleeding or bruising or clotting. Bleeding, bruising, clotting discussed Nutritional guidance given Dose: 7.5mg X 4 days and 10mg X 3 days (Mon, Wed & Fri) F/U INR: 4 weeks Patient verbalizes understanding of instructions given Anti-Coag Initial Assessment Social Hx Patient Tobacco Use Status: Former Tobacco user Tobacco use type: Cigarette alcohol intake: current Alcohol intake frequency: does not drink Coding Level of Care Code Est Patient Level 1 Diagnoses Current use of anticoagulant therapy Z79.01 Assessment & Plan Assessment & Plan (1) Current use of anticoagulant therapy: Code(s): Z79.01 - salvage determiner (current) use of anticoagulants Category: Medical
--- OUTSIDE RECORDS SUMMARY | 2024-11-13 14:46 | XMS_ITS | Clinical Summary ---
Author Organization [facility] it Address [address] [place] [address] Care Team Providers Care Raw Sampler Name Role Phone Jovany Peng MD Primary Care Provider [phone] Medical History Medical History Date Comments Osteoarthritis of hip DX:Osteoar thritis of hip Low thyroid stimulating horm one (TSH) level DX:Low thyroid stimulating h ormone (TSH) level IFG (impaired fasting glucose) D X:IFG (impaired fasting glucose) Tubular adenoma of colon DX:Tubu lar adenoma of colon Sprain of right ankle, unspe cified ligament, initial encounter DX:Sprain of right ankle, unspecified ligament, initial encounter Social History Tobacco Use Types Packs/Day Years Used Date Smoking Tobacco: Former Smokeless Tobacco: Never Alcohol Use Standard Drinks/Week Comments Not Currently 0 (1 standard drink = 0.6 oz pur e alcohol) Sex and Gender Information Value Date Recorded Sex Assigned at Not on file Legal Sex Male 10:48 AM EST Gender Identity Not on file Sexual Orientation Not on file Obstetrics History Last Filed Vital Signs Vital Sign Reading Time Taken Comments Blood Pressure 132/78 10/15/2023 9:16 AM EST Pulse 62 10/15/2023 9:16 AM EST Temperature - - Respiratory Rate - - Oxygen Saturation - - Inhaled Oxygen Concentration - - Weight 85.7 kg (189 lb) 10/15/2023 9:16 AM EST Height 170.2 cm (5' 7 ) 10/15/2023 9:16 AM EST Body Mass Index 29.6 10/15/2023 9:16 AM EST Plan of Treatment Health Maintenance Due Date Last Done Comments DTaP,Tdap,and Td Vaccines (1 - Tdap) 1967 Pneumococcal Vaccine: 50+ Ye ars (1 of 1 - PCV) 1998 Zoster Vaccines (1 of 2) 1998 Cholesterol Screening (Lipid Panel) 08/13/2022 Depression Screening 08/13/2022 Falls Risk Assessment 08/13/2022 Hepatitis C Screening 08/13/2022 Social Influencers of Health Screening 08/13/2022 Hypertension/CHF/CAD Annual BMP Blood Test 08/23/2022 RSV Immunization Patients 60 + Years Old (1 - 1-dose 75+ series) 2023 COVID-19 Vaccine ( - 2023-2 5 season) 2024 Influenza Vaccine (#1) 2024 HIB Vaccines Aged Out No longer eligi ble based on patient's age to complete this topic HPV Vaccines Aged Out No longer eligi ble based on patient's age to complete this topic Hepatitis A Vaccines Aged Out No long er eligible based on patient's age to complete this topic Hepatitis B Vaccines Aged Out No long er eligible based on patient's age to complete this topic IPV Vaccines Aged Out No longer eligi ble based on patient's age to complete this topic MMR Vaccines Aged Out No longer eligi ble based on patient's age to complete this topic Meningococcal ACWY Vaccine Aged Out N o longer eligible based on patient's age to complete this topic Meningococcal B Vacine Aged Out No lo nger eligible based on patient's age to complete this topic RSV Immunization Patients Un elvira 20 months Aged Out No longer eligible b ased on patient's age to complete this topic Varicella Vaccines Aged Out No longer eligible based on patient's age to complete this topic Care Teams Raw Sampler Relationship Specialty Start Date End Date Jovany Peng MD [address] [place] [address] PCP - General Internal Medicine 02/09/22
--- OUTSIDE RECORDS SUMMARY | 2024-11-13 14:46 | XMS_ITS | Encounter Summary ---
Author Organization [employer] Address [address] [place] [address] [address] [place] [address] Care Team Providers Care Laboratory Immunologist Name Role Phone Jovany Peng MD Primary Care Provider [phone] Encounter Details Date Type Department Care Team ([facility] st Contact Info) Description 04/02/2023 Orders Only [facility] CHC MED & PEDS [address] [place], [place] [id number] Lilian Roberto LPN Social History Tobacco Use Types Packs/Day Years Used Date Smoking Tobacco: Never Assessed Sex and Gender Information Value Date Recorded Sex Assigned at Male 07/09/2022 10:20 AM EDT Legal Sex Male 10:20 AM EDT Gender Identity Male 07/09/2022 10:20 AM EDT Sexual Orientation Straight 07/09/2022 10 :20 AM EDT documented as of this encounter Plan of Treatment Not on file documented as of this encounter Visit Diagnoses Not on filedocumented in this encounter Care Teams Laboratory Immunologist Relationship Specialty Start Date End Date Jovany Peng MD [address] [place] [address] PCP - General Internal Medicine 08/31/13 documented as of this encounter
--- OUTSIDE RECORDS SUMMARY | 2024-11-13 14:46 | XMS_ITS | Encounter Summary ---
Author Organization [employer] Address [address] [place] [address] [address] [place] [address] Care Team Providers Care Deckhand Shrimp Boat Name Role Phone Jovany Peng MD Primary Care Provider [phone] Reason for Visit * Reason Onset Date Comments Referral 06/26/2023 Encounter Details Date Type Department Care Team ([facility] st Contact Info) Description 06/26/2023 Telephone [facility] CHC MED & PEDS [address] [place] [address] Jovany Peng MD [address] [place] [address] Referral Social History Tobacco Use Types Packs/Day Years Used Date Smoking Tobacco: Never Assessed Sex and Gender Information Value Date Recorded Sex Assigned at Male 07/09/2022 10:20 AM EDT Legal Sex Male 10:20 AM EDT Gender Identity Male 07/09/2022 10:20 AM EDT Sexual Orientation Straight 07/09/2022 10 :20 AM EDT documented as of this encounter Miscellaneous Notes * Telephone Encounter - Lori Hess - 06/27/2023 2:13 PM EDT Referral faxed to [facility] neurology. * Telephone Encounter - Giana Pinzon - 06/26/2023 1:37 PM EDT Tc from Radha to inform of Neurology of preference. Dr. Eugene Zamarripa MD [address] [place] [address] documented in this encounter Plan of Treatment Not on file documented as of this encounter Visit Diagnoses Not on filedocumented in this encounter Care Teams Deckhand Shrimp Boat Relationship Specialty Start Date End Date Jovany Peng MD [address] [place] [address] PCP - General Internal Medicine 08/31/13 documented as of this encounter
--- OUTSIDE RECORDS SUMMARY | 2024-11-13 14:46 | XMS_ITS | Encounter Summary ---
Author Organization [employer] Address [address] [facility] [address] [place] [address] Care Team Providers Care Building Mechanic Name Role Phone Jovany Peng MD Primary Care Provider [phone]- [phone] Encounter Details Date Type Department Care Team (Late st Contact Info) Description 07/11/2023 Abstract [facility] MEDICINE [address] [place] [address] Jovany Peng MD [address] [place] [address] Social History Tobacco Use Types Packs/Day Years [...] on file documented as of this encounter Procedures Procedure Name Priority Date/Time Associated Diagnosis Comments COLONOSCOPY Routine 06/30/2019 COLONOSCOPY Routine 06/30/2019 documented in this encounter Results * Colonoscopy (06/30/2019) Colonoscopy Normal Normal Historical Provider HEALTH MAINTENANCE Final Result * Colonoscopy (06/30/2019) Colonoscopy Normal Normal Narrative Staci Gustafson - 06/30/2019 Recommended 5 year follow up us Historical Provider HEALTH MAINTENANCE Final Result documented in this encounter Visit Diagnoses Not on filedocumented in this encounter Care Teams Building Mechanic Relationship Specialty Start Date End Date Jovany Peng MD [address] [place] [address] PCP - General Internal Medicine 08/31/13 documented as of this encounter
--- OUTSIDE RECORDS SUMMARY | 2024-11-13 14:46 | XMS_ITS | Encounter Summary ---
Author Organization [employer] Address [address] [place] [address] [address] [place] [address] Care Team Providers Care Candy Starch Mold Printer Name Role Phone Jovany Peng MD Primary Care Provider [phone]- [phone] Reason for Visit * Reason Onset Date Comments FYI 05/30/2023 Encounter Details Date Type Department Care Team ([facility] Contact Info) Description 05/30/2023 Telephone [facility] CHC MED & PEDS [address] [place] [address] Jovany Peng MD [address] [place] [address] FYI Social History Tobacco Use Types Packs/Day Years Used Date Smoking Tobacco: Never Assessed Sex and Gender Information Value Date Recorded Sex Assigned at Male 07/09/2022 10:20 AM EDT Legal Sex Male 10:20 AM EDT Gender Identity Male 07/09/2022 10:20 AM EDT Sexual Orientation Straight 07/09/2022 10 :20 AM EDT documented as of this encounter Miscellaneous Notes * Telephone Encounter - Carlos Gutierrez RN - 05/30/2023 12:29 PM EDT Please see FYI below. * Telephone Encounter - Ines Mccord - 05/30/2023 10:13 AM EDT Tc from daughter advising PCP, sr. payroll manager Dr. Valentino upped the dosage of dilTIAZem XR (Dilacor XR) 120 MG 24 hr capsule to Dilt-XR 240 MG 24 hr capsule. States she does not want pharmacy to be confused. documented in this encounter Plan of Treatment Not on file documented as of this encounter Visit Diagnoses Not on filedocumented in this encounter Care Teams Candy Starch Mold Printer Relationship Specialty Start Date End Date Jovany Peng MD [address] [place] [address] PCP - General Internal Medicine 08/31/13 documented as of this encounter
--- OUTSIDE RECORDS SUMMARY | 2024-11-13 14:46 | XMS_ITS | Encounter Summary ---
Author Organization [employer] Address [address] [facility] [address] [place] [address] Care Team Providers Care Machine Adjuster Helper Name Role Phone Jovany Peng MD Primary Care Provider [phone] Encounter Details Date Type Department Care Team (Late st Contact Info) Description 10/16/2024 Orders Only GENERIC EXTERNAL DATA DEPARTMENT Provider, Generic External Data Social History Tobacco Use Types Packs/Day Years Used Date Smoking Tobacco: Never Smokeless Tobacco: Never Sex and Gender Information Value Date Recorded Sex Assigned at Male 07/09/2022 10:20 AM EDT Legal Sex Male 10:20 AM EDT Gender Identity Male 07/09/2022 10:20 AM EDT Sexual Orientation Straight 07/09/2022 10 :20 AM EDT documented as of this encounter Plan of Treatment Not on file documented as of this encounter Procedures Procedure Name Priority Date/Time Associated Diagnosis Comments PROTHROMBIN TIME WHOLE BLD POC Routine 10/16/2024 1:23 PM EST ~PT, ~INR - ANTI COAG CLINIC Routine 10/16/2024 1:23 PM EST documented in this encounter Results * (ABNORMAL) PROTHROMBIN TIME WHOLE BLD POC (10/16/2024 1:23 PM EST) Protime 27.1(H) 11.1 - 13.5 sec [facility] 10/16/2024 1:23 PM EST 10/16/2024 1:24 PM EST us Generic External Data Provider LAB BLOOD ORDERAB LES Final Result Performing Organization Address [facility] Co de Phone Number [facility] [address] [place] [address] [phone] * (ABNORMAL) ~PT, ~INR - ANTI COAG CLINIC (10/16/2024 1:23 PM EST) Prothrombin Time INR 2.3(H) 0.9 - 1.1 [facility] Comment:METER #: [id number] TERNATIONAL NORMALIZED RATIO (INR) REFERENCE RANGES Reference RangeFor patients not on anticoagulant therapy: 0.9 - 1.1INR ranges for oral anticoagulanttherapy:For prevention and treatment of venous thrombosis and pulmonary embolism: 2.0 - 3.0For acute myocardial infarction with aspirin therapy: 2.0 - 3.0For acute myocardial infarction without aspirin therapy: 3.0 - 4.0For patients with mechanical prosthetic heart valves: 2.5 - 3.5 10/16/2024 1:23 PM EST 10/16/2024 1:24 PM EST Generic External Data Provider LAB BLOOD ORDERAB LES Final Result Performing Organization Address [facility] Co de Phone Number [facility] [address] [place] [address] [phone] documented in this encounter Visit Diagnoses Not on filedocumented in this encounter Care Teams Machine Adjuster Helper Relationship Specialty Start Date End Date Jovany Peng MD [address] [place] [id number] PCP - General Internal Medicine 08/31/13 documented as of this encounter
--- OUTSIDE RECORDS SUMMARY | 2024-11-13 14:46 | XMS_ITS | Encounter Summary ---
Author Organization [employer] Address [address] [place] [address] [address] [place] [address] Care Team Providers Care Cycle Director Name Role Phone Jovany Peng MD Primary Care Provider [phone] Encounter Details Date Type Department Care Team (Late st Contact Info) Description 11/13/2024 Orders Only GENERIC EXTERNAL DATA DEPARTMENT Provider, [...] Comments PROTHROMBIN TIME WHOLE BLD POC Routine 11/13/2024 1:13 PM EST ~PT, ~INR - ANTI COAG CLINIC Routine 11/13/2024 1:13 PM EST documented in this encounter Results * (ABNORMAL) PROTHROMBIN TIME WHOLE BLD POC (11/13/2024 1:13 PM EST) Protime 28.9(H) 11.1 - 13.5 sec [facility] 11/13/2024 1:13 PM EST 11/13/2024 1:14 PM EST us Generic External Data Provider LAB BLOOD ORDERAB LES Final Result Performing Organization Address [facility] Co de Phone Number [facility] [address] [place] [address] [phone] * (ABNORMAL) ~PT, ~INR - ANTI COAG CLINIC (11/13/2024 1:13 PM EST) Prothrombin Time INR 2.4(H) 0.9 - 1.1 [facility] Comment:METER #: [id number] TERNATIONAL NORMALIZED RATIO (INR) REFERENCE RANGES Reference RangeFor patients not on anticoagulant therapy: 0.9 - 1.1INR ranges for oral anticoagulanttherapy:For prevention and treatment of venous thrombosis and pulmonary embolism: 2.0 - 3.0For acute myocardial infarction with aspirin therapy: 2.0 - 3.0For acute myocardial infarction without aspirin therapy: 3.0 - 4.0For patients with mechanical prosthetic heart valves: 2.5 - 3.5 11/13/2024 1:13 PM EST 11/13/2024 1:14 PM EST Generic External Data Provider LAB BLOOD ORDERAB LES Final Result Performing Organization Address [facility] Co de Phone Number [facility] [address] [place] [address] [phone] documented in this encounter Visit Diagnoses Not on filedocumented in this encounter Care Teams Cycle Director Relationship Specialty Start Date End Date Jovany Peng MD [address] [place] [id number] PCP - General Internal Medicine 08/31/13 documented as of this encounter
--- OUTSIDE RECORDS SUMMARY | 2024-11-13 14:47 | XMS_ITS | Clinical Summary ---
Author Organization [employer] Address [address] [facility] 7t [place] [address] Care Team Providers Care Socially Responsible Investment Adviser Name Role Phone Jovany Peng MD Primary Care Provider [phone] Medications Dilt-XR 240 MG 24 hr capsule TAKE 1 CAPSULE BY MOUTH DAILY 02/02/2023 Active omega-3 (Fish Oil) 1000 MG capsule Take 1,000 mg by mouth in the morning. Active calcium carbonate (Os-Weston) 1250 (500 Ca) MG chewable tablet Chew 1 tablet in the morning. Active magnesium 30 MG tablet Take 30 mg by mouth 2 times daily. Active warfarin (Coumadin) 2.5 MG tablet TAKE 3 TO 4 TABLETS BY MOUTH EVERY DAY DIRECTED BY [facility]MADIN CLINIC 360 tablet 09/25/2024 Active Active Problems Problem Noted Date Diagnosed Date Superficial laceration 06/26/2023 3 Sprain of ankle 06/26/2023 06/26/2023 Tremors of nervous system 06/26/2023 Assessment & Plan (06/26/2023 10:26 AM EDT): Unexplained head nodding and lower jaw trembling noticed by family. Not present on examination. Normal gait. Will send to neurology for formal evaluation and send labs. Hold off imaging as he had benign neuro exam. 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 01/26/2022 06/26/2023 Impaired fasting glucose 11/16/2021 023 Decreased thyroid stimulating hormone level 0306/26/2023 Tubular adenoma of colon 01/22/2014 023 Osteoarthritis of hip 07/30/2013 06/26/2023 Atrial fibrillation 07/30/2013 06/26/2023 Encounters Date Type Department Care Team Description 11/13/2024 Orders Only GENERIC EXTERNAL DATA DEPARTMENT Provider, Generic External Data 10/16/2024 Orders Only GENERIC EXTERNAL DATA DEPARTMENT Provider, Generic External Data 09/24/[address] [address] Jovany Peng MD 09/11/2024 Orders Only GENERIC EXTERNAL DATA DEPARTMENT Provider, Generic External Data 08/28/2024 Orders Only GENERIC EXTERNAL DATA DEPARTMENT Provider, Generic External Data from Last 3 Months Immunizations Name Administration Dates Next Due Tdap 07/30/2013 Social History Tobacco Use Types Packs/Day Years Used Date Smoking Tobacco: Never Smokeless Tobacco: Never Tobacco Cessation:Counseling Given: No Sex and Gender Information Value Date Recorded Sex Assigned at Male 07/09/2022 10:20 AM EDT Legal Sex Male 10:20 AM EDT Gender Identity Male 07/09/2022 10:20 AM EDT Sexual Orientation Straight 07/09/2022 10 :20 AM EDT Last Filed Vital Signs Vital Sign Reading Time Taken Comments Blood Pressure 143/104 07/16/2023 9:57 AM EST Pulse 70 07/16/2023 9:57 AM EST Temperature 36.1 ??C (96.9 ??F) 07/16/2023 9:57 AM ES T Respiratory Rate 19 07/16/2023 9:57 AM EST Oxygen Saturation 97% 07/16/2023 9:57 AM EST Inhaled Oxygen Concentration - - Weight 85.3 kg (188 lb) 07/16/2023 9:57 AM EST Height 166 cm (5' 5.35 ) 07/16/2023 9:57 AM EST Body Mass Index 30.95 07/16/2023 9:57 AM EST Plan of Treatment Health Maintenance Due Date Last Done Comments Depression Screening 1950 SDOH Screening 1948 Alcohol/Substance Use Screening 1960 Hepatitis C Screening 1966 Pneumococcal Vaccine: 50+ Years (1 of 1 - PCV) 1998 Zoster Vaccines (1 of 2) 1998 DTaP/Tdap/Td Vaccines (2 - T d or Tdap) 07/30/2023 07/30/2013 RSV Patients and Patients Aged 60 years or older (1 - 1-dose 75+ series) 2023 COVID-19 Vaccine (3 - 2023-2 5 season) 2024 12/14/2020, 11/16/2020 Influenza Vaccine (#1) 2024 Tobacco Screening 07/16/2024 07/16/2023 Lipid Panel 11/15/2026 11/15/2021 Colonoscopy Discontinued 06/30/2019, 06/30/2019 Colorectal Cancer Screening Discontinued CT Colonography Discontinued FIT DNA/Cologuard Discontinued FIT Discontinued FOBT Discontinued HIB Vaccines Aged Out No longer eligi [...] patient's age to complete this topic Meningococcal Vaccine Aged Out No olivia mayur eligible based on patient's age to complete this topic RSV under 20 months Aged Out No longe r eligible based on patient's age to complete this topic Rotavirus Vaccines Aged Out No longer eligible based on patient's age to complete this topic Sigmoidoscopy Discontinued Procedures Procedure Name Priority Date/Time Associated Diagnosis Comments PROTHROMBIN TIME WHOLE BLD POC Routine 11/13/2024 1:13 PM EST ~PT, ~INR - ANTI COAG CLINIC Routine 11/13/2024 1:13 PM EST PROTHROMBIN TIME WHOLE BLD POC Routine 10/16/2024 1:23 PM EST ~PT, ~INR - ANTI COAG CLINIC Routine 10/16/2024 1:23 PM EST PROTHROMBIN TIME WHOLE BLD POC Routine 09/11/2024 1:31 PM EST ~PT, ~INR - ANTI COAG CLINIC Routine 09/11/2024 1:31 PM EST PROTHROMBIN TIME WHOLE BLD POC Routine 08/28/2024 1:24 PM EST ~PT, ~INR - ANTI COAG CLINIC Routine 08/28/2024 1:24 PM EST LIPID PANEL, STANDARD Routine 11/15/2021 8:31 AM EST HM COLONOSCOPY Routine 06/30/2019 from Last 3 Months or Most Recently Relevant to Health Maintenance Results * (ABNORMAL) PROTHROMBIN TIME WHOLE BLD POC (11/13/2024 1:13 PM EST) Only the most recent of4 resultswithin the time period is included. Protime 28.9(H) 11.1 - 13.5 sec [facility] 11/13/2024 1:13 PM EST 11/13/2024 1:14 PM EST us Generic External Data Provider LAB BLOOD ORDERAB LES Final Result Performing Organization Address City/State/[facility] Co de Phone Number [facility] [address] [place] [phone] * (ABNORMAL) ~PT, ~INR - ANTI COAG CLINIC (11/13/2024 1:13 PM EST) Only the most recent of4 resultswithin the time period is included. Prothrombin Time INR 2.4(H) 0.9 - 1.1 [facility] Comment:METER #: [id number] TERNATIONAL NORMALIZED RATIO (INR) REFERENCE RANGES Reference [...] Provider LAB BLOOD ORDERAB LES Final Result [facility] [address] [place] [address] [phone] * LIPID PANEL, STANDARD (11/15/2021 8:31 AM EST) Chol/HDLC Ratio 3.4 <5.0 (calc) [facility] Cholesterol, Total 158 <200 mg/dL [facility] HDL Cholesterol 46 > OR = 40 mg/dL [facility] LDL Cholesterol 95 mg/dL (calc) [facility] Comment: Reference range: <100 ?? Desirable range <100 mg/dL for primary prevention; ?? <70 mg/dL for patients with CHD or diabetic patients ?? with > or = 2 CHD risk factors. ?? LDL-C is now calculated using the Chuyita ?? calculation, which is a validated novel method providing ?? better accuracy than the Friedewald equation in the ?? estimation of LDL-C. ?? Dallin HIGGINBOTHAM et al. CHARITO. 2013;310(19): 4136-9569 ?? (http://education.[employer]faq/JHL689) Non-HDL Cholesterol 112 <130 mg/dL (calc) [facility] Comment: For patients with diabetes plus 1 major ASCVD risk ?? factor, treating to a non-HDL-C goal of <100 mg/dL ?? (LDL-C of <70 mg/dL) is considered a therapeutic ?? option. Triglycerides 83 <150 mg/dL [facility] 11/15/2021 8:31 AM EST us Jovany Peng MD LAB BLOOD ORDERABLES Final Result Performing Organization Address City/[facility]/ZIP Co de Phone Number [facility] [address] [place] [address], * Colonoscopy (06/30/2019) Colonoscopy Normal Normal Narrative Janay, Staci - 06/30/2019 Recommended 5 year follow up Historical Provider HEALTH MAINTENANCE Final Result from Last 3 Months or Most Recently Relevant to Health Maintenance Insurance MEDICARE Care Teams Socially Responsible Investment Adviser Relationship Specialty Start Date End Date Jovany Peng MD [address] [place] [phone] PCP - General Internal Medicine 08/31/13
== END 2024-11-13 13:19 | disposition home or self-care (01) ==
LOC: HO.ACS 13:08
PROVIDERS: PCP Internal Medicine; Visit Provider Internal Medicine
DX: Z79.01 Long term (current) use of anticoagulants (principal)

== ENCOUNTER → 2024-11-13 13:08 | Outpatient (BNVA) | payer MEDICARE, MEDICAID, SELFPAY | PROVIDERS: PCP Internal Medicine; Visit Provider Internal Medicine | DX: I48.0 Paroxysmal atrial fibrillation (principal); Z79.01 Long term (current) use of anticoagulants; Z51.81 Encounter for therapeutic drug level monitoring | CPT/HCPCS: 85610; 99211 ==

== ENCOUNTER 2024-12-11 13:01 | Outpatient (AMB) | payer MEDICARE, MEDICAID, SELFPAY ==
[2024-12-11 13:08] LABS: Prothrombin Time Whole Bld POC 34.4 sec (11.1-13.5); ~PT, ~INR - Anti Coag Clinic 2.9 (0.9-1.1)
--- NOTE | 2024-12-11 13:10 | MHC.OFFVISCO ---
Intake Intake Visit Reasons: Anticoagulation Allergies No Known Allergies [No Known Allergies*] Allergy (Verified 12/11/24 13:01) Medication List - Last Reconciled 12/11/24 by Tomasa Sadler RN diltiazem HCl ER (DILT-XR) 240 mg PO DAILY lisinopril 2.5 mg PO DAILY methocarbamol 500 mg PO BID spironolactone 12.5 mg PO DAILY warfarin 2.5 mg See Protocol PO DAILY Nursing Note INR: 2.4 in therapeutic range of 2-3 Medications and supplements reviewed No changes in health, diet, medications, or supplements, Denies any signs and symptoms of bleeding or bruising or clotting. Bleeding, bruising, clotting discussed Nutritional guidance given to have a serving of greens today Dose: 7.5mg X 4 days and 10mg X 3 days(M/W/F) F/U INR: 4 weeks Patient verbalizes understanding of instructions given Anti-Coag Initial Assessment Social Hx Patient Tobacco Use Status: Former Tobacco user Tobacco use type: Cigarette alcohol intake: current Alcohol intake frequency: does not drink Coding Level of Care Code Est Patient Level 1 Diagnoses Current use of anticoagulant therapy Z79.01 Results AMB INR Fingerstick AMB INR Fingerstick 2.9 Last Edit by Tomasa Sadler RN on 12/11/24 13:09 interface delay Assessment & Plan Assessment & Plan (1) Current use of anticoagulant therapy: Code(s): Z79.01 - retirement (current) use of anticoagulants Category: Medical
--- OUTSIDE RECORDS SUMMARY | 2024-12-11 14:51 | XMS_ITS | Encounter Summary ---
Author Organization [employer] Address [address] [place] [address] 7t [place] [address] Care Team Providers Care Coach Builder Name Role Phone Jovany Peng MD Primary Care Provider [phone] Encounter Details Date Type Department Care Team ([facility] st Contact Info) Description 04/02/2023 Orders Only [facility] CHC MED & PEDS [address] [place], [place] [phone] Lilian Roberto LPN Social History Tobacco Use [...] on filedocumented in this encounter Care Teams Coach Builder Relationship Specialty Start Date End Date Jovany Peng MD [address] [place] [address] PCP - General Internal Medicine 08/31/13 documented as of this encounter
--- OUTSIDE RECORDS SUMMARY | 2024-12-11 14:51 | XMS_ITS | Encounter Summary ---
Author Organization [employer] Address [address] [facility] 7t [place] [address] Care Team Providers Care Construction Recruiter Name Role Phone Jovany Peng MD Primary Care Provider [phone] Encounter Details Date Type Department Care Team (Late st Contact Info) Description 12/11/2024 Orders Only GENERIC EXTERNAL DATA DEPARTMENT Provider, [...] Comments PROTHROMBIN TIME WHOLE BLD POC Routine 12/11/2024 1:06 PM EDT ~PT, ~INR - ANTI COAG CLINIC Routine 12/11/2024 1:06 PM EDT documented in this encounter Results * (ABNORMAL) PROTHROMBIN TIME WHOLE BLD POC (12/11/2024 1:06 PM EDT) Protime 34.4(H) 11.1 - 13.5 sec [facility] 12/11/2024 1:06 PM EDT 12/11/2024 1:07 PM EDT us Generic External Data Provider LAB BLOOD ORDERAB LES Final Result Performing Organization Address [facility]/ZIP Co de Phone Number [facility] [address] [place] [address] [phone] * (ABNORMAL) ~PT, ~INR - ANTI COAG CLINIC (12/11/2024 1:06 PM EDT) Prothrombin Time INR 2.9(H) 0.9 - 1.1 [facility] Comment:METER #: [id number] TERNATIONAL NORMALIZED RATIO (INR) REFERENCE RANGES Reference RangeFor patients not on anticoagulant therapy: 0.9 - 1.1INR ranges for oral anticoagulanttherapy:For prevention and treatment of venous thrombosis and pulmonary embolism: 2.0 - 3.0For acute myocardial infarction with aspirin therapy: 2.0 - 3.0For acute myocardial infarction without aspirin therapy: 3.0 - 4.0For patients with mechanical prosthetic heart valves: 2.5 - 3.5 12/11/2024 1:06 PM EDT 12/11/2024 1:07 PM EDT us Generic External Data Provider LAB BLOOD ORDERAB LES Final Result Performing Organization Address [facility] Co de Phone Number [facility] [address] [place] [phone] documented in this encounter Visit Diagnoses Not on filedocumented in this encounter Care Teams Construction Recruiter Relationship Specialty Start Date End Date Jovany Peng MD [address] [place] [phone] PCP - General Internal Medicine 08/31/13 documented as of this encounter
--- OUTSIDE RECORDS SUMMARY | 2024-12-11 14:51 | XMS_ITS | Encounter Summary ---
Author Organization [employer] Address [address] [facility] 7t [place] [address] Care Team Providers Care Haulage Boss Name Role Phone Jovany Peng MD Primary Care Provider [phone] Encounter Details Date Type Department Care Team (Late st Contact Info) Description 07/11/2023 Abstract [facility] MEDICINE [address] [place] [address] Jovany Peng MD [address] [place] [address] Social History Tobacco Use Types Packs/Day Years [...] on filedocumented in this encounter Care Teams Haulage Boss Relationship Specialty Start Date End Date Jovany Peng MD [address] [place] [phone] PCP - General Internal Medicine 08/31/13 documented as of this encounter
--- OUTSIDE RECORDS SUMMARY | 2024-12-11 14:51 | XMS_ITS | Encounter Summary ---
Author Organization [employer] Address [address] [place] [address] 7t [place] [address] Care Team Providers Care Supervisor Cooler Service Name Role Phone Jovany Peng MD Primary Care Provider [phone] Reason for Visit * Reason Onset Date Comments Referral 06/26/2023 Encounter Details Date Type Department Care Team ([facility] st Contact Info) Description 06/26/2023 Telephone [facility] CHC MED & PEDS [address] [place] [address] Jovany Peng MD [address] [place] [address] Referral Social History Tobacco Use Types Packs/Day [...] of preference. Dr. Eugene Zamarripa MD [address] [place] [address] documented in this encounter Plan of Treatment Not on file documented as of this encounter Visit Diagnoses Not on filedocumented in this encounter Care Teams Supervisor Cooler Service Relationship Specialty Start Date End Date Jovany Peng MD [address] [place] [phone] PCP - General Internal Medicine 08/31/13 documented as of this encounter
--- OUTSIDE RECORDS SUMMARY | 2024-12-11 14:51 | XMS_ITS | Encounter Summary ---
Author Organization [employer] Address [address] [place] [address] 7 [place] [address] Care Team Providers Care Outreach Director Name Role Phone Jovany Peng MD Primary Care Provider [phone] Reason for Visit * Reason Onset Date Comments FYI 05/30/2023 Encounter Details Date Type Department Care Team ([facility] Contact Info) Description 05/30/2023 Telephone [facility] CHC MED & PEDS [address] [place] [address] Jovany Peng MD [address] [place] [address] FYI Social History Tobacco Use Types Packs/Day [...] AM EDT Tc from daughter advising PCP, care coordinator Dr. Valentino upped the dosage of dilTIAZem XR (Dilacor XR) 120 MG 24 hr capsule to Dilt-XR 240 MG 24 hr capsule. States she does not want pharmacy to be confused. documented in this encounter Plan of Treatment Not on file documented as of this encounter Visit Diagnoses Not on filedocumented in this encounter Care Teams Outreach Director Relationship Specialty Start Date End Date Jovany Peng MD [address] [place] [address] PCP - General Internal Medicine 08/31/13 documented as of this encounter
--- OUTSIDE RECORDS SUMMARY | 2024-12-11 14:52 | XMS_ITS | Clinical Summary ---
Author Organization [facility] it Address [address] [place] [address] Care Team Providers Care College Instructor Name Role Phone Jovany Peng MD Primary Care Provider [phone] Medical History Medical History Date Comments Osteoarthritis [...] 10/15/2023 9:16 AM EST Plan of Treatment Upcoming Encounters Date Type Department Care Team (Late st Contact Info) Description 02/02/2025 12:40 PM EDT Office Visit [facility] [address] [facility] [address] [place] [address] Kailee Luna [address] [facility] [address] [place] [address] Health Maintenance Due Date Last Done Comments DTaP,Tdap,and Td Vaccines (1 - Tdap) 1967 Pneumococcal Vaccine: 50+ Ye ars (1 of 1 - PCV) 1998 Zoster Vaccines (1 of 2) 1998 Cholesterol Screening (Lipid Panel) 08/13/2022 Depression Screening 08/13/2022 Falls Risk Assessment 08/13/2022 Hepatitis C Screening 08/13/2022 Medicare Annual Wellness Visit 08/13/2022 Social Influencers of Health Screening 08/13/2022 Hypertension/CHF/CAD Annual BMP Blood Test 08/23/2022 RSV Immunization Adult Patie nts (1 - 1-dose 75+ series) 2023 COVID-19 [...] on patient's age to complete this topic Insurance MEDICARE MEDICAID - [place] Care Teams College Instructor Relationship Specialty Start Date End Date Jovany Peng MD [address] [place] [address] PCP - General Internal Medicine 02/09/22
--- OUTSIDE RECORDS SUMMARY | 2024-12-11 14:52 | XMS_ITS | Clinical Summary ---
Author Organization [employer] Address [address] [facility] 7t [place] [address] Care Team Providers Care Structural Engineering Technician Name Role Phone Jovany Peng MD Primary Care Provider [phone] Medications Dilt-XR 240 MG 24 hr capsule [...] Encounters Date Type Department Care Team Description 12/11/2024 Orders Only GENERIC EXTERNAL DATA DEPARTMENT Provider, Generic External Data 11/13/2024 Orders Only GENERIC EXTERNAL DATA DEPARTMENT Provider, Generic External Data 10/16/2024 Orders Only GENERIC EXTERNAL DATA DEPARTMENT Provider, Generic External Data 09/24/2024 Refill [facility] [address] [place] [address] Jovany Peng MD from Last 3 Months Immunizations Name Administration [...] COAG CLINIC Routine 12/11/2024 1:06 PM EDT PROTHROMBIN TIME WHOLE BLD POC Routine 11/13/2024 1:13 PM EST ~PT, ~INR - ANTI COAG CLINIC Routine 11/13/2024 1:13 PM EST PROTHROMBIN TIME WHOLE BLD POC Routine 10/16/2024 1:23 PM EST ~PT, ~INR - ANTI COAG CLINIC Routine 10/16/2024 1:23 PM EST LIPID PANEL, STANDARD Routine 11/15/2021 8:31 AM EST HM COLONOSCOPY Routine 06/30/2019 from Last 3 Months or Most Recently Relevant to Health Maintenance Results * (ABNORMAL) PROTHROMBIN TIME WHOLE BLD POC (12/11/2024 1:06 PM EDT) Only the most recent of3 resultswithin the time period is included. Protime 34.4(H) 11.1 - 13.5 sec [facility] 12/11/2024 1:06 PM EDT 12/11/2024 1:07 PM EDT us Generic External Data Provider LAB BLOOD ORDERAB LES Final Result Performing Organization Address [facility] Co de Phone Number [facility] [address] [place] [phone] * (ABNORMAL) ~PT, ~INR - ANTI COAG CLINIC (12/11/2024 1:06 PM EDT) Only the most recent of3 resultswithin the time period is included. Prothrombin Time INR 2.9(H) 0.9 - 1.1 [facility] Comment:METER #: [id number] TERNATIONAL NORMALIZED RATIO (INR) REFERENCE RANGES Reference [...] ORDERAB LES Final Result Performing Organization Address City/[facility] Co de Phone Number [facility] [address] [place] [address] [phone] * LIPID PANEL, STANDARD (11/15/2021 8:31 AM EST) Chol/HDLC Ratio 3.4 <5.0 (calc) [facility] Cholesterol, Total 158 <200 mg/dL [facility] HDL Cholesterol 46 > OR = 40 mg/dL [facility] LDL Cholesterol 95 mg/dL (calc) [facility] Comment: Reference range: <100 ?? Desirable range <100 mg/dL for primary prevention; ?? <70 mg/dL for patients with CHD or diabetic patients ?? with > or = 2 CHD risk factors. ?? LDL-C is now calculated using the Dallin-Stoner ?? calculation, which is a validated novel method providing ?? better accuracy than the Friedewald equation in the ?? estimation of LDL-C. ?? Dallin SS et al. CHARITO. 2013;310(19): 0778-8381 ?? (http://education.[employer]/faq/TSX914) Non-HDL Cholesterol 112 <130 mg/dL (calc) [facility] Comment: For patients with diabetes plus 1 major ASCVD risk ?? factor, treating to a non-HDL-C goal of <100 mg/dL ?? (LDL-C of <70 mg/dL) is considered a therapeutic ?? option. Triglycerides 83 <150 mg/dL [facility] 11/15/2021 8:31 AM EST Jovany Peng MD LAB BLOOD ORDERABLES Final Result [facility] [address] * Hm Colonoscopy (06/30/2019) Colonoscopy Normal Normal Narrative Staci Gustafson - 06/30/2019 Recommended 5 year follow up Historical Provider HEALTH MAINTENANCE Final Result from Last 3 Months or Most Recently Relevant to Health Maintenance Insurance [facility] STANDARD MEDICARE * Guarantor: Viral Castillo Account Type Relation to Patient Date of Phone Billing Address Personal/Family Self [address] [place] Care Teams Structural Engineering Technician Relationship Specialty Start Date End Date Jovany Peng MD [address] [place] [address] [place] [address] PCP - General Internal Medicine 08/31/13
== END 2024-12-11 13:13 | disposition home or self-care (01) ==
LOC: HO.ACS 13:01
PROVIDERS: PCP Internal Medicine; Visit Provider Internal Medicine Medical Oncology
DX: Z79.01 Long term (current) use of anticoagulants (principal)

== ENCOUNTER → 2024-12-11 13:01 | Outpatient (BNVA) | payer MEDICARE, MEDICAID, SELFPAY | PROVIDERS: PCP Internal Medicine; Visit Provider Internal Medicine Medical Oncology | DX: I48.0 Paroxysmal atrial fibrillation (principal); Z51.81 Encounter for therapeutic drug level monitoring; Z79.01 Long term (current) use of anticoagulants | CPT/HCPCS: 85610; 99211 ==

== ENCOUNTER 2025-01-22 14:00 | Outpatient (AMB) | payer MEDICARE, MEDICAID, SELFPAY ==
--- OUTSIDE RECORDS SUMMARY | 2025-01-22 14:02 | XMS_ITS | Encounter Summary ---
Author Organization [employer] Address [address] [facility] 7t [place] [address] Care Team Providers Care Restaurant Assistant Manager Name Role Phone Jovany Peng MD Primary Care Provider Reason for Visit * Reason Onset Date Comments Referral 06/26/2023 Encounter Details Date Type Department Care Team ([facility] Contact Info) Description 06/26/2023 Telephone [facility] MED & PEDS [address] [place], [place] [phone] Jovany Peng MD [address] [place] [address] Referral Social History Tobacco Use Types Packs/Day [...] of preference. Dr. Eugene Zamarripa MD [address] [place] [address] documented in this encounter Plan of Treatment Not on file documented as of this encounter Visit Diagnoses Not on filedocumented in this encounter Care Teams Restaurant Assistant Manager Relationship Specialty Start Date End Date Jovany Peng MD [address] [place] [address] PCP - General Internal Medicine 08/31/13 documented as of this encounter
--- OUTSIDE RECORDS SUMMARY | 2025-01-22 14:02 | XMS_ITS | Encounter Summary ---
Author Organization [employer] Address [address] [facility] 7t [place] [address] Care Team Providers Care Cementer Oil Well Name Role Phone Jovany Peng MD Primary Care Provider [phone] Reason for Visit * Reason Onset Date Comments Medication Question 01/14/2025 Encounter Details Date Type Department Care Team (Late st Contact Info) Description 01/14/2025 Telephone [facility] MEDICINE [address] [place] [address] Jovany Peng MD [address] [place], [place] [phone] Medication Question Social History Tobacco Use Types Packs/Day Years Used Date Smoking Tobacco: Never Smokeless Tobacco: Never Sex and Gender Information Value Date Recorded Sex Assigned at Male 07/09/2022 10:20 AM EDT Legal Sex Male 10:20 AM EDT Gender Identity Male 07/09/2022 10:20 AM EDT Sexual Orientation Straight 07/09/2022 10 :20 AM EDT documented as of this encounter Miscellaneous Notes * Telephone Encounter - Lavelle Rivera - 01/14/2025 10:15 AM EDT TC from Anthony requesting clarification on warfarin (Coumadin) 2.5 MG tablet . No direction wereprovided. documented in this encounter Plan of Treatment Not on file documented as of this encounter Visit Diagnoses Not on filedocumented in this encounter Care Teams Cementer Oil Well Relationship Specialty Start Date End Date Jovany Peng MD [address] [place] [address] PCP - General Internal Medicine 08/31/13 documented as of this encounter
--- OUTSIDE RECORDS SUMMARY | 2025-01-22 14:02 | XMS_ITS | Clinical Summary ---
Author Organization [employer] Address 75 [facility] 7t [place] [address] Care Team Providers Care Funds Development Director Name Role Phone Jovany Peng MD Primary Care Provider [phone] Medications Dilt-XR 240 MG 24 hr capsule TAKE 1 CAPSULE BY MOUTH DAILY 02/03/20 23 Active omega-3 (Fish Oil) 1000 MG capsule Take 1,000 mg by mouth in the morning. Active calcium carbonate (Os-Weston) 1250 (500 Ca) MG chewable tablet Chew 1 tablet in the morning. Active magnesium 30 MG tablet Take 30 mg by mouth 2 times daily. Active warfarin (Coumadin) 2.5 MG tabletIndicatio ns:Atrial fibrillation, unspecified type (CMS/HCC) TAKE 3 TO 4 TABLETS BY MOUTH EVERY DAY DIRECTED BY [facility]INIC 360 tablet 01/15/20 25 Active warfarin (Coumadin) 2.5 MG tablet TAKE 3 TO 4 TABLETS BY MOUTH EVERY DAY DIRECTED BY COUMADIN CLINIC 360 tablet 09/25/19 25 025 Discontinued(Re order (will not trigger notification to Pharmacy)) warfarin (Coumadin) 2.5 MG tabletIndicatio ns:Atrial fibrillation, unspecified type (CMS/HCC) Take as directed per After Visit Summary. 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 MED & PEDS [address] [place] [address] Jovany Peng MD Atrial fibrillation, unspecified type ([facility]) 01/14/2025 Telephone [facility] MEDICINE [address] [place] [address] Jovany Peng MD Medication Question 01/13/[address] [facility] [address] [place] [address] Jovany Peng MD 01/12/2025 Refill [facility] MEDICINE [address] [place] [address] Jovany Peng MD 12/11/2024 Orders Only GENERIC EXTERNAL DATA DEPARTMENT Provider, Generic External Data 11/13/2024 Orders Only GENERIC EXTERNAL DATA DEPARTMENT Provider, Generic External Data from Last 3 Months Immunizations Immunization Administration Dates Next Due Tdap 07/30/2013 Social [...] age to complete this topic Meningococcal B Vaccine Aged Out No l onger eligible based on patient's age to complete [...] [facility] Routine 11/13/2024 1:13 PM EST LIPID PANEL, STANDARD Routine 11/15/2021 8:31 AM EST HM COLONOSCOPY Routine 06/30/2019 from Last 3 Months or Most Recently Relevant to Health Maintenance Results * (ABNORMAL) PROTHROMBIN TIME WHOLE BLD POC (12/11/2024 1:06 PM EDT) Only the most recent of2 resultswithin the time period is included. Pathologist [facility] Protime 34.4(H) 11.1 - 13.5 sec [facility] 12/11/2024 1:06 PM EDT 12/11/2024 1:07 PM EDT us Generic External Data Provider LAB BLOOD ORDERAB LES Final Result [facility] [address] [place] [phone] * (ABNORMAL) ~PT, ~INR - ANTI COAG CLINIC (12/11/2024 1:06 PM EDT) Only the most recent of2 resultswithin the time period is included. Pathologist [facility] Prothrombin Time INR 2.9(H) 0.9 - 1.1 [facility] Comment:METER #: [id number] TERNATIONAL NORMALIZED RATIO (INR) REFERENCE RANGES Reference [...] Provider LAB BLOOD ORDERAB LES Final Result [facility] [address] [place] [address] [phone] * LIPID PANEL, STANDARD (11/15/2021 8:31 [...] ?? Dallin HIGGINBOTHAM et al. CHARITO. 2013;310(19): 5597-9553 ?? (http://education.[employer]/faq/DWR133) Non-HDL Cholesterol 112 <130 mg/dL (calc) [facility] Comment: For patients with diabetes plus 1 major ASCVD risk ?? factor, treating to a non-HDL-C goal of <100 mg/dL ?? (LDL-C of <70 mg/dL) is considered a therapeutic ?? option. Triglycerides 83 <150 mg/dL [facility] 11/15/2021 8:31 AM EST Jovany Peng MD LAB BLOOD ORDERABLES Final Result [facility] [address] [place] [address], * Colonoscopy (06/30/2019) Colonoscopy Normal Normal Narrative Staci Gustafson - 06/30/2019 Recommended 5 year follow up Historical Provider HEALTH MAINTENANCE Final Result from Last 3 Months or Most Recently Relevant to Health Maintenance Insurance [facility] STANDARD MEDICARE [place] [address] [place] [id number] Care Teams Funds Development Director Relationship Specialty Start Date End Date Jovany Peng MD [address] [place] [address] [place]s [address] PCP - General Internal Medicine 08/31/13
--- OUTSIDE RECORDS SUMMARY | 2025-01-22 14:02 | XMS_ITS | Encounter Summary ---
Author Organization [employer] Address [address] [facility] 7t [place] [address] Care Team Providers Care Shop Hand Name Role Phone Jovany Peng MD Primary Care Provider [phone]- [phone] Encounter Details Date Type Department Care Team (Late st Contact Info) Description 07/11/2023 Abstract [facility] MEDICINE [address] [place] [address] Jovany Peng MD [address] [place], [place] [phone] Social History Tobacco Use Types Packs/Day Years [...] Procedure Name Priority Date/Time Associated Diagnosis Comments HM COLONOSCOPY Routine 06/30/2019 HM COLONOSCOPY Routine 06/30/2019 documented in this encounter Results * Hm Colonoscopy (06/30/2019) Colonoscopy Normal Normal us Historical Provider HEALTH MAINTENANCE Final Result * Hm Colonoscopy (06/30/2019) Colonoscopy Normal Normal Narrative Staci Gustafson - 06/30/2019 Recommended 5 year follow up us Historical Provider HEALTH MAINTENANCE Final Result documented in this encounter Visit Diagnoses Not on filedocumented in this encounter Care Teams Shop Hand Relationship Specialty Start Date End Date Jovany Peng MD [address] [place] [address] PCP - General Internal Medicine 08/31/13 documented as of this encounter
--- OUTSIDE RECORDS SUMMARY | 2025-01-22 14:02 | XMS_ITS | Clinical Summary ---
Author Organization [facility] it Address [address] [place] [address] Care Team Providers Care Supervisor Of Instruction Name Role Phone Jovany Peng MD Primary Care Provider [phone] Medications spironolactone (ALDACTONE) 25 mg tablet TAKE 1/2 TABLET BY MOUTH DAILY 45 tablet 1 01/11/2025 Active Medical History Medical History Date Comments Osteoarthritis [...] Description 02/02/2025 12:40 PM EDT Office Visit [facility] [address] [facility] [address] [place] [address] Kailee Luna NP [address] [place] [address] Health Maintenance Due Date Last [...] - 2023-2 5 season) 2024 Influenza Vaccine (Season Ended) 2025 HIB Vaccines Aged Out No longer eligi [...] Insurance MEDICARE MEDICAID - [place] Care Teams Supervisor Of Instruction Relationship Specialty Start Date End Date Jovany Peng MD [address] [place] [address] PCP - General Internal Medicine 02/09/22
--- OUTSIDE RECORDS SUMMARY | 2025-01-22 14:02 | XMS_ITS | Encounter Summary ---
Author Organization [employer] Address 75 [facility] 7t [place] [address] Care Team Providers Care Continuous Process Coffee Roaster Name Role Phone Jovany Peng MD Primary Care Provider [phone]- [phone] Reason for Visit * Reason Onset Date Comments FYI 05/30/2023 Encounter Details Date Type Department Care Team ([facility] st Contact Info) Description 05/30/2023 Telephone [facility] MED & PEDS [address] [place] [address] Jovany Peng MD [address] [place] [address] FYI Social History Tobacco Use Types Packs/Day [...] FYI below. * Telephone Encounter - Ines cMcord - 05/30/2023 10:13 AM EDT Tc from daughter advising PCP, sales operations lead Dr. Valentino upped the dosage of dilTIAZem XR (Dilacor XR) 120 MG 24 hr capsule to Dilt-XR 240 MG 24 hr capsule. States she does not want pharmacy to be confused. documented in this encounter Plan of Treatment Not on file documented as of this encounter Visit Diagnoses Not on filedocumented in this encounter Care Teams Continuous Process Coffee Roaster Relationship Specialty Start Date End Date Jovany Peng MD [address] [place] [address] PCP - General Internal Medicine 08/31/13 documented as of this encounter
--- OUTSIDE RECORDS SUMMARY | 2025-01-22 14:02 | XMS_ITS | Encounter Summary ---
Author Organization [employer] Address 75 [facility] 7[address] [place] [address] Care Team Providers Care System Development Engineer Name Role Phone Jovany Peng MD Primary Care Provider [phone]- [phone] Encounter Details Date Type Department Care Team ([facility] st Contact Info) Description 01/14/2025 Orders Only [facility] MED & PEDS [address] [place], [place] [phone] Jovany Peng MD [address] [place] [address] Atrial fibrillation, unspecified type (CMS/HCC) Social History Tobacco Use Types Packs/Day Years [...] documented as of this encounter Visit Diagnoses Diagnosis Atrial fibrillation, unspecified type (CMS/HCC) documented in this encounter Care Teams System Development Engineer Relationship Specialty Start Date End Date Jovany Peng MD [address] [place] [address] PCP - General Internal Medicine 08/31/13 documented as of this encounter
--- OUTSIDE RECORDS SUMMARY | 2025-01-22 14:02 | XMS_ITS | Encounter Summary ---
Author Organization [employer] Address 75 [facility] 7t [place] [address] Care Team Providers Care Mobile Homes Repairer Name Role Phone Jovany Peng MD Primary Care Provider [phone]- [phone] Encounter Details Date Type Department Care Team ([facility] st Contact Info) Description 04/02/2023 Orders Only [facility] MED & PEDS [address] [place], [place] [phone] Lilian Roberto LPN Social History Tobacco Use [...] on filedocumented in this encounter Care Teams Mobile Homes Repairer Relationship Specialty Start Date End Date Jovany Peng MD [address] [place] [address] PCP - General Internal Medicine 08/31/13 documented as of this encounter
[2025-01-22 14:12] LABS: Prothrombin Time Whole Bld POC 27.7 sec (11.1-13.5); ~PT, ~INR - Anti Coag Clinic 2.3 (0.9-1.1)
--- NOTE | 2025-01-22 14:12 | MHC.OFFVISCO ---
Intake Intake Visit Reasons: Anticoagulation Allergies No Known Allergies [No Known Allergies*] Allergy (Verified 01/22/25 14:01) Medication List - Last Reconciled 01/22/25 by Tomasa Sadler RN diltiazem HCl ER (DILT-XR) 240 mg PO DAILY lisinopril 2.5 mg PO DAILY methocarbamol 500 mg PO BID spironolactone 12.5 mg PO DAILY warfarin 2.5 mg See Protocol PO DAILY Nursing Note INR: 2.3 in therapeutic range of 2-3 Medications and supplements reviewed No changes in health, diet, medications, or supplements, Denies any signs and symptoms of bleeding or bruising or clotting. Bleeding, bruising, clotting discussed Nutritional guidance given Dose: 7.5mg X 4 days and 10mg X 3 days F/U INR: 4 weeks Patient verbalizes understanding of instructions given Anti-Coag Initial Assessment Social Hx Patient Tobacco Use Status: Former Tobacco user Tobacco use type: Cigarette alcohol intake: current Alcohol intake frequency: does not drink Coding Level of Care Code Est Patient Level 1 Diagnoses Current use of anticoagulant therapy Z79.01 Results AMB INR Fingerstick AMB INR Fingerstick 2.3 Last Edit by Tomasa Sadler RN on 01/22/25 14:08 interface delay Assessment & Plan Assessment & Plan (1) Current use of anticoagulant therapy: Code(s): Z79.01 - long-term (current) use of anticoagulants Category: Medical
== END 2025-01-22 14:13 | disposition home or self-care (01) ==
LOC: HO.ACS 14:00
PROVIDERS: PCP Internal Medicine; Visit Provider Internal Medicine Medical Oncology
DX: Z79.01 Long term (current) use of anticoagulants (principal)

== ENCOUNTER → 2025-01-22 14:00 | Outpatient (BNVA) | payer MEDICARE, MEDICAID, SELFPAY | PROVIDERS: PCP Internal Medicine; Visit Provider Internal Medicine Medical Oncology | DX: I48.0 Paroxysmal atrial fibrillation (principal); Z79.01 Long term (current) use of anticoagulants; Z51.81 Encounter for therapeutic drug level monitoring | CPT/HCPCS: 85610; 99211 ==

== ENCOUNTER 2025-02-19 13:16 | Outpatient (AMB) | payer MEDICARE, MEDICAID, SELFPAY ==
--- NOTE | 2025-02-19 13:26 | MHC.OFFVISCO ---
Intake Intake Visit Reasons: Anticoagulation Allergies No Known Allergies [No Known Allergies*] Allergy (Verified 02/19/25 13:17) Medication List - Last Reconciled 02/19/25 by Tomasa Sadler RN diltiazem HCl ER (DILT-XR) 240 mg PO DAILY lisinopril 2.5 mg PO DAILY methocarbamol 500 mg PO BID spironolactone 12.5 mg PO DAILY warfarin 2.5 mg See Protocol PO DAILY Nursing Note INR: 1.5?out of therapeutic range of 2-3 Could not determine cause of low INR Medications and supplements reviewed Patient status: well Medications or supplements: no changes Diet: usual diet Denies any signs and symptoms of bleeding or clotting or unusual bruising Bleeding, bruising, clotting discussed Nutritional guidance given: food list reviewed and pt instructed to avoid greens and focus on foods that raise the INR Dose: increase today's dose to 12.5mg (10mg), increase tomorrrow's dose to 10mg (7.5mg) and increase the next day to 10mg (7.5mg) then usual dose of 10mg X 4 days and 7.5mg X 3 days (//) F/U INR Date: 1 week?? Patient verbalizing understanding of instructions given. T/C to Dr Peng's office. Spoke to Georgiana. INR 1.5 reported with dosage plan and next retest date. 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
--- OUTSIDE RECORDS SUMMARY | 2025-02-19 13:37 | XMS_ITS | Encounter Summary ---
Author Organization [employer] Address 75 [facility] 7t [place] [address] Care Team Providers Care Renewable Energy Technician Name Role Phone Jovany Peng MD Primary Care Provider [phone]- [phone] Reason for Visit * Reason Onset Date Comments Referral 06/26/2023 Encounter Details Date Type Department Care Team ([facility] st Contact Info) Description 06/26/2023 Telephone [facility] MED & PEDS [address] [place] [address] Jovany Peng MD [address] [place] [address] Referral Social History Tobacco Use Types Packs/Day [...] of preference. Dr. Eugene Zamarripa MD [address] [place] [address] documented in this encounter Plan of Treatment Not on file documented as of this encounter Visit Diagnoses Not on filedocumented in this encounter Care Teams Renewable Energy Technician Relationship Specialty Start Date End Date Jovany Peng MD [address] [place] [address] PCP - General Internal Medicine 08/31/13 documented as of this encounter
[2025-02-19 13:40] LABS: Prothrombin Time Whole Bld POC 18.4 sec (11.1-13.5); ~PT, ~INR - Anti Coag Clinic 1.5 (0.9-1.1)
== END 2025-02-19 14:56 | disposition home or self-care (01) ==
LOC: HO.ACS 13:16
PROVIDERS: PCP Internal Medicine; Visit Provider Internal Medicine Medical Oncology
DX: Z79.01 Long term (current) use of anticoagulants (principal)

== ENCOUNTER → 2025-02-19 13:16 | Outpatient (BNVA) | payer MEDICARE, MEDICAID, SELFPAY | PROVIDERS: PCP Internal Medicine; Visit Provider Internal Medicine Medical Oncology | DX: I48.0 Paroxysmal atrial fibrillation (principal); Z79.01 Long term (current) use of anticoagulants; Z51.81 Encounter for therapeutic drug level monitoring | CPT/HCPCS: 85610; 99211 ==

== ENCOUNTER 2025-02-25 14:27 | Outpatient (AMB) | payer MEDICARE, MEDICAID, SELFPAY ==
--- NOTE | 2025-02-25 14:47 | MHC.OFFVISCO ---
Intake Intake Visit Reasons: Anticoagulation Allergies No Known Allergies (No Known Allergies*) Allergy (Verified 02/25/25 14:37) Medication List - Last Reconciled 02/25/25 by Ximena Mukherjee RN diltiazem HCl ER (DILT-XR) 240 mg PO DAILY lisinopril 2.5 mg PO DAILY methocarbamol 500 mg PO BID spironolactone 12.5 mg PO DAILY warfarin 2.5 mg See Protocol PO DAILY Nursing Note INR: 2.6 in therapeutic range pt believes his INR was low previosuly because he ate way to many [employer] Medications and supplements reviewed No changes in health, diet, medications, or supplements, Denies any signs and symptoms of bleeding or bruising or clotting. Bleeding, bruising, clotting discussed Nutritional guidance given Dose: pt would like to resume his usual dose 10mg mwf/ 7.5mg 4 days while away to [place] x 1 month F/U INR: 1 month after return from [place] Patient verbalizes understanding of instructions given Anti-Coag Initial Assessment Social Hx Patient Tobacco Use Status: Former Tobacco user Tobacco use type: Cigarette alcohol intake: current Alcohol intake frequency: does not drink Coding Level of Care Code Est Patient Level 1 Diagnoses Current use of anticoagulant therapy Z79.01 Results AMB INR Fingerstick AMB INR Fingerstick 2.6 Last Edit by Ximena Mukherjee RN on 02/25/25 14:44 manual entry Assessment & Plan Assessment & Plan (1) Current use of anticoagulant therapy: Code(s): Z79.01 - retirement (current) use of anticoagulants Category: Medical
[2025-02-25 15:23] LABS: Prothrombin Time Whole Bld POC 30.6 sec (11.1-13.5); ~PT, ~INR - Anti Coag Clinic 2.6 (0.9-1.1)
--- OUTSIDE RECORDS SUMMARY | 2025-02-25 15:42 | XMS_ITS | Encounter Summary ---
Author Organization [email or web address] Address 75 [facility] 7t [place] [address] Care Team Providers Care Shared Services Manager Name Role Phone Jovany Peng MD Primary Care Provider [phone] Encounter Details Date Type Department Care Team (Late st Contact Info) Description 02/25/2025 Orders Only GENERIC EXTERNAL DATA DEPARTMENT Provider, [...] Comments PROTHROMBIN TIME WHOLE BLD POC Routine 02/25/2025 2:41 PM EDT ~PT, ~INR - ANTI COAG CLINIC Routine 02/25/2025 2:41 PM EDT documented in this encounter Results * (ABNORMAL) PROTHROMBIN TIME WHOLE BLD POC (02/25/2025 2:41 PM EDT) Protime 30.6(H) 11.1 - 13.5 sec [facility] 02/25/2025 2:41 PM EDT 02/25/2025 3:23 PM EDT us Generic External Data Provider LAB BLOOD ORDERAB LES Final Result Performing Organization Address [facility]/ZIP Co de Phone Number [facility] [address] [place] [address] [phone] * (ABNORMAL) ~PT, ~INR - ANTI COAG CLINIC (02/25/2025 2:41 PM EDT) Prothrombin Time INR 2.6(H) 0.9 - 1.1 [facility] Comment:METER #: [id number] TERNATIONAL NORMALIZED RATIO (INR) REFERENCE RANGES Reference RangeFor patients not on anticoagulant therapy: 0.9 - 1.1INR ranges for oral anticoagulanttherapy:For prevention and treatment of venous thrombosis and pulmonary embolism: 2.0 - 3.0For acute myocardial infarction with aspirin therapy: 2.0 - 3.0For acute myocardial infarction without aspirin therapy: 3.0 - 4.0For patients with mechanical prosthetic heart valves: 2.5 - 3.5 02/25/2025 2:41 PM EDT 02/25/2025 3:23 PM EDT Generic External Data Provider LAB BLOOD ORDERAB LES Final Result Performing Organization Address [facility] Co de Phone Number [facility] [address] [place] [address] [phone] documented in this encounter Visit Diagnoses Not on filedocumented in this encounter Care Teams Shared Services Manager Relationship Specialty Start Date End Date Jovany Peng MD [address] [place] [id number] PCP - General Internal Medicine 08/31/13 documented as of this encounter
== END 2025-02-25 14:50 | disposition home or self-care (01) ==
LOC: HO.ACS 14:27
PROVIDERS: PCP Internal Medicine; Visit Provider Internal Medicine Medical Oncology
DX: Z79.01 Long term (current) use of anticoagulants (principal)

== ENCOUNTER → 2025-02-25 14:27 | Outpatient (BNVA) | payer MEDICARE, MEDICAID, SELFPAY | PROVIDERS: PCP Internal Medicine; Visit Provider Internal Medicine Medical Oncology | DX: I48.0 Paroxysmal atrial fibrillation (principal); Z79.01 Long term (current) use of anticoagulants; Z51.81 Encounter for therapeutic drug level monitoring | CPT/HCPCS: 85610; 99211 ==

== ENCOUNTER 2025-04-02 13:01 | Outpatient (AMB) | payer MEDICARE, MEDICAID, SELFPAY ==
--- OUTSIDE RECORDS SUMMARY | 2025-04-02 13:03 | XMS_ITS | Encounter Summary ---
Author Organization [employer] Address 75 [facility] 7t [place] [address] Care Team Providers Care Technical Sourcing Recruiter Name Role Phone Jovany Peng MD Primary Care Provider [phone]- [phone] Encounter Details Date Type Department Care Team ([facility] st Contact Info) Description 02/19/2025 Orders Only [facility] MED & PEDS [address] [place] [address] Jovany Peng MD [address] [place] [address] Atrial fibrillation, unspecified type (CMS/HCC) Social History [...] (CMS/HCC) documented in this encounter Care Teams Technical Sourcing Recruiter Relationship Specialty Start Date End Date Jovany Peng MD [address] [place] [address] PCP - General Internal Medicine 08/31/13 documented as of this encounter
--- OUTSIDE RECORDS SUMMARY | 2025-04-02 13:03 | XMS_ITS | Clinical Summary ---
Author Organization [address] [place] [address] [place] [phone] Phone Care Team Providers Care Wood Floor Layer Name Role Phone Jovany Peng MD Primary Care Provider [phone] Medications spironolactone (ALDACTONE) 25 mg tablet TAKE [...] Care Team (Late st Contact Info) Description 05/25/2025 7:40 AM EDT Office Visit [facility] - [address] [facility] [address] [place] [address] Kailee Luna NP [address] [place] [address] Health Maintenance Due Date Last Done Comments Pneumococcal Vaccine: 50+ Ye ars (1 of 1 - PCV) 1998 Zoster Vaccines (1 of 2) 1998 Falls Risk Assessment 08/13/2022 Hepatitis C Screening 08/13/2022 Medicare Annual Wellness Visit 08/13/2022 Social Influencers of Health Screening 08/13/2022 Hypertension/CHF/CAD Annual BMP Blood Test 08/23/2022 DTaP,Tdap,and Td Vaccines (2 - Td or Tdap) 07/30/2023 07/30/2013 RSV Immunization Adult Patie nts (1 - 1-dose 75+ series) 2023 COVID-19 Vaccine (1 - 2023-2 5 season) 2024 Depression Screening 09/09/2024 Influenza Vaccine (#1) 2025 Cholesterol Screening (Lipid Panel) 11/15/2026 11/15/2021 HIB Vaccines Aged Out No longer eligi [...] Insurance MEDICARE MEDICAID - [place] Care Teams Wood Floor Layer Relationship Specialty Start Date End Date Jovany Peng MD [address] [place] [address] PCP - General Internal Medicine 02/09/22
--- NOTE | 2025-04-02 13:08 | MHC.OFFVISCO ---
Intake Intake Visit Reasons: Anticoagulation Allergies No Known Allergies (No Known Allergies*) Allergy (Verified 04/02/25 13:04) Medication List - Last Reconciled 04/02/25 by Giulia Cifuentes RN diltiazem HCl ER (DILT-XR) 240 mg PO DAILY lisinopril 2.5 mg PO DAILY methocarbamol 500 mg PO BID spironolactone 12.5 mg PO DAILY warfarin 2.5 mg See Protocol PO DAILY Nursing Note INR 3.4-? out of therapeutic range 2-3 Medications and supplements reviewed Patient status: returned from [place] Medications or supplements: no changes Diet: same Denies any signs and symptoms of bleeding or clotting or unusual bruising Bleeding, bruising, clotting discussed Nutritional guidance given: eat greens to lower Dose: 7.5mg today then cont reg 10mg x 3, 7.5mg x 4 F/U INR Date : pt ref earlier than 4 weeks Patient verbalizing understanding of instructions given. 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
[2025-04-02 16:23] LABS: Prothrombin Time Whole Bld POC 40.9 sec (11.1-13.5); ~PT, ~INR - Anti Coag Clinic 3.4 (0.9-1.1)
== END 2025-04-02 13:14 | disposition home or self-care (01) ==
LOC: HO.ACS 13:01
PROVIDERS: PCP Internal Medicine; Visit Provider Internal Medicine Medical Oncology
DX: Z79.01 Long term (current) use of anticoagulants (principal)

== ENCOUNTER → 2025-04-02 13:01 | Outpatient (BNVA) | payer MEDICARE, MEDICAID, SELFPAY | PROVIDERS: PCP Internal Medicine; Visit Provider Internal Medicine Medical Oncology | DX: I48.0 Paroxysmal atrial fibrillation (principal); Z79.01 Long term (current) use of anticoagulants; Z51.81 Encounter for therapeutic drug level monitoring | CPT/HCPCS: 85610; 99211 ==

== ENCOUNTER 2025-04-30 12:57 | Outpatient (AMB) | payer MEDICARE, MEDICAID, SELFPAY ==
--- OUTSIDE RECORDS SUMMARY | 2025-04-30 13:00 | XMS_ITS | Encounter Summary ---
Author Organization [facility] Address [address] [place] [address] Care Team Providers Care Optician Manager Name Role Phone Jovany Peng MD Primary Care Provider +1 -[phone] Reason for Visit * Reason Onset Date Comments Med Refill 04/27/2025 Encounter Details Date Type Department Care Team ([facility] st Contact Info) Description 04/27/2025 Telephone [facility] - [facility] [address] [facility] [address] [place] [phone] Haroon Brito MD [address] [facility] [address] [place] [address] Med Refill Social History Tobacco Use Types Packs/Day Years Used Date Smoking Tobacco: Former Smokeless Tobacco: Never Alcohol Use Standard Drinks/Week Comments Not Currently 0 (1 standard drink = 0.6 oz pur e alcohol) Sex and Gender Information Value Date Recorded Sex Assigned at Not on file Legal Sex Male 10:48 AM EST Gender Identity Not on file Sexual Orientation Not on file documented as of this encounter Ordered Prescriptions Prescription Sig Dispense Quantity Refills Last Filled Start Date End Date DILT-XR 240 mg 24 hr capsule Take 1 capsule (240 mg total) by mouth 1 (one) time each day. 90 capsule 04/27/2025 documented in this encounter Progress Notes * Anne Marie Blair MA - 04/27/2025 11:20 AM EDT Upcoming appt [phone] Alba Luna NP Last offc vist with Dr Brito 90 day fill no refills * Reynold Oliver - 04/27/2025 9:54 AM EDT Bryan is the patients daughter and is calling for a refill request for Diltiazem for a 90 day supplyand please send to [facility]. documented in this encounter Plan of Treatment Upcoming Encounters Date Type Department Care Team (Late st Contact Info) Description 05/25/2025 7:40 AM EDT Office Visit [facility] - [facility] [address] [facility] 154 [place] [phone] Kailee Luna NP [address] [place] [phone] documented as of this encounter Visit Diagnoses Not on filedocumented in this encounter Discontinued Medications Medication Sig Discontinue Reason Start Date End Da te DILT-XR 240 mg 24 hr capsule Take 1 capsule (240 mg total) by mouth 1 (one) time each day. Reorder 01/09/2025 04/27/2025 documented as of this encounter Historical Medications * This list may reflect changes made after this encounter. DILT-XR 240 mg 24 hr capsule Take 1 capsule (240 mg total) by mouth 1 (one) time each day. 01/09/2025 04/27/2025 added in this encounter Care Teams Optician Manager Relationship Specialty Start Date End Date Jovany Peng MD [address] [place] [address] PCP - General Internal Medicine 02/09/22 documented as of this encounter
--- OUTSIDE RECORDS SUMMARY | 2025-04-30 13:00 | XMS_ITS | Encounter Summary ---
Author Organization [employer] Address [address] [facility] 7t [place] [address] Care Team Providers Care Element Winding Machine Tender Name Role Phone Jovany Peng MD Primary Care Provider [phone]- [phone] Encounter Details Date Type Department Care Team ([facility] st Contact Info) Description 02/19/2025 Orders Only [facility]EDS [address] [place] [address] Jovany Peng MD [address] [place] [address] Atrial fibrillation, unspecified type (CMS/HCC) Social History [...] (CMS/HCC) documented in this encounter Care Teams Element Winding Machine Tender Relationship Specialty Start Date End Date Jovany Peng MD [address] [place] [address] PCP - General Internal Medicine 08/31/13 documented as of this encounter
[2025-04-30 13:02] LABS: Prothrombin Time Whole Bld POC 19.9 sec (11.1-13.5); ~PT, ~INR - Anti Coag Clinic 1.7 (0.9-1.1)
--- NOTE | 2025-04-30 13:07 | MHC.OFFVISCO ---
Intake Intake Visit Reasons: Anticoagulation Allergies No Known Allergies (No Known Allergies*) Allergy (Verified 04/30/25 12:59) Medication List - Last Reconciled 04/30/25 by Ximena Mukherjee RN diltiazem HCl ER (DILT-XR) 240 mg PO DAILY lisinopril 2.5 mg PO DAILY methocarbamol 500 mg PO BID spironolactone 12.5 mg PO DAILY warfarin 2.5 mg See Protocol PO DAILY Nursing Note INR: 1.7 SLIGHTLY OUT OF RANGE c range Medications and supplements reviewed- pt states he may have missed a dose while on vacation plus ate differently No changes in health, diet, medications, or supplements, Denies any signs and symptoms of bleeding or bruising or clotting. Bleeding, bruising, clotting discussed Nutritional guidance given Dose: increase dose this week- 10mg x 4 days this week then 10mg mwf/ 7.5mg x 4 days F/U INR: 4 weeks per pt request Patient verbalizes understanding of instructions given Anti-Coag Initial Assessment Social Hx Patient Tobacco Use Status: Former Tobacco user Tobacco use type: Cigarette alcohol intake: current Alcohol intake frequency: does not drink Coding Level of Care Code Est Patient Level 1 Diagnoses Current use of anticoagulant therapy Z79.01 Results AMB INR Fingerstick AMB INR Fingerstick 1.7 Last Edit by Ximena Mukherjee RN on 04/30/25 13:02 MANUAL ENTRY DELAYED INTERFACING Assessment & Plan Assessment & Plan (1) Current use of anticoagulant therapy: Code(s): Z79.01 - vermin exterminator (current) use of anticoagulants Category: Medical
== END 2025-04-30 13:09 | disposition home or self-care (01) ==
LOC: HO.ACS 12:57
PROVIDERS: PCP Internal Medicine; Visit Provider Internal Medicine Medical Oncology
DX: Z79.01 Long term (current) use of anticoagulants (principal)

== ENCOUNTER → 2025-04-30 12:57 | Outpatient (BNVA) | payer MEDICARE, MEDICAID, SELFPAY | PROVIDERS: PCP Internal Medicine; Visit Provider Internal Medicine Medical Oncology | DX: Z51.81 Encounter for therapeutic drug level monitoring (principal); Z79.01 Long term (current) use of anticoagulants | CPT/HCPCS: 85610; 99211 ==

== ENCOUNTER 2025-05-28 13:04 | Outpatient (AMB) | payer MEDICARE, MEDICAID, SELFPAY ==
--- OUTSIDE RECORDS SUMMARY | 2025-05-25 07:40 | XMS_ITS | Encounter Summary ---
Author Organization [facility] Address [address] [place] [address] Care Team Providers Care Rd Manager Name Role Phone Jovany Peng MD Primary Care Provider [phone] [phone] Reason for Visit * Reason Comments Follow-up Encounter Details Date Type Department Care Team (Late st Contact Info) Description 05/25/2025 7:40 AM EDT Office Visit [facility] - [address] [place] [phone] Kailee Luna NP [address] [place] [address] Persistent atrial fibrillation (CMS/HCC V24, CMS/HCC V28) (Primary Dx) Social History Tobacco Use Types Packs/Day Years [...] on file documented as of this encounter Last Filed Vital Signs Vital Sign Reading Time Taken Comments Blood Pressure 138/84 05/25/2025 8:10 AM EDT Pulse 75 05/25/2025 7:46 AM EDT Temperature - - Respiratory Rate - - Oxygen Saturation - - Inhaled Oxygen Concentration - - Weight 84.4 kg (186 lb) 05/25/2025 7:46 AM EDT Height 170.2 cm (5' 7 ) 05/25/2025 7:46 AM EDT Body Mass Index 29.13 05/25/2025 7:46 AM EDT documented in this encounter Progress Notes * Kailee Luna NP - 05/25/2025 7:40 AM EDT Xarelto Eliquis Savaysa Pradaxa If one of these is affordable just let me know and we can transition from warfarin. * Kailee Luna NP - 05/25/2025 7:40 AM EDT PRIMARY BUTTER FAT TESTER: Haroon Brito MD PCP: Jovany Peng MD Documentation completed with aid of [employer]. I have obtained verbal consent from patient prior to the recording. I have advised patient that he may refuse the recording and require the recording to be turned off at any time during this encounter. Viral Castillo is a 74 y.o. old male Persistent atrial fibrillation (HCC) [I48.19] 05/02/2022 Longstanding persistent atrial fibrillation diagnosed back in 2007. Treated with diltiazem. Anticoagulated with warfarin with good tolerance. Chadsvasc score is a 3 for age and hypertension. . He hadan echocardiogram in 2007 and again in 2021 with no significant valvular disease He does have left atrial enlargement HTN (hypertension) [I10] 05/02/2022 Primary hypertension. No renal disease, chronic NSAID use was, excessive alcohol or caffeine, or high sodium intake. History of Present Illness Presents for 18 month follow up He is currently on diltiazem and warfarin, with his warfarin levels being monitored at a clinic in [facility]. The dosage of warfarin remains stable, influenced by his dietary intake. He reports no chest pain, shortness of breath, or rapid heartbeats. His last consultation with PCP was some time ago, and he plans to schedule an annual check-up. His most recent blood work was conducted over a year ago. No PND, orthopnea, edema. He monitors his blood pressure at home, which typically reads around 140/70 to 80. 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 90 capsule 0 mrfum-6z-lme-epa-fish oil (Fish OiL) 350-600 mg capsule Take by mouth. spironolactone (ALDACTONE) 25 mg tablet TAKE 1/2 TABLET BY MOUTH DAILY 45 tablet 1 warfarin (COUMADIN) 2.5 mg tablet Take by mouth 1 (one) time each day with dinner. Managed by [facility] Coumadin clinic ALLERGIES: No Known Allergies FAMILY HISTORY: No family history on file. SOCIAL HISTORY: Social History Tobacco Use Smoking status: Former Smokeless tobacco: Never Substance Use Topics Alcohol use: Not Currently PHYSICAL EXAM: Blood pressure 138/84, pulse 75, height 1.702 m (67 ), weight 84.4 kg (186 lb). Body mass index is 29.13 kg/m??. Physical Exam HENT: Mouth/Throat: Mouth: Mucous membranes are moist. Cardiovascular: Rate and Rhythm: Normal rate and regular rhythm. Heart sounds: Normal heart sounds. Pulmonary: Breath sounds: Normal breath sounds. Abdominal: General: Bowel sounds are normal. Palpations: Abdomen is soft. Musculoskeletal: General: Normal range of motion. Skin: General: Skin is warm and dry. Neurological: General: No focal deficit present. Mental Status: He is alert. Psychiatric: Mood and Affect: Mood normal. Encounter Date: 05/25/25 ECG 12 lead Result Value Ventricular Rate ECG 75 Atrial Rate 80 QRS Duration 94 Q-T Interval 408 QTc 455 R Mayview 41 T Mayview 35 ECG Interpretation Atrial fibrillation Low voltage QRS Abnormal ECG No previous ECGs available *Note: Due to a large number of results and/or encounters for the requested time period, some results have not been displayed. A complete set of results can be found in Results Review. 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 Haroon Brito MD we discussedthe following today: ASSESSMENT/PLAN: Assessment & Plan Stage 4 permanent Atrial Fibrillation: - Asymptomatic - EKG indicates well-controlled atrial fibrillation - Discussed transitioning from warfarin to alternative anticoagulants (Eliquis, Xarelto, Pradaxa, Savaysa) will investigate affordability - Alternatives do not require dietary restrictions or regular blood testing - Lower risk of bleeding compared to warfarin - List of medications provided to discuss with insurance company - If approved, switch from warfarin and inform warfarin clinic - Continued risks of anticoagulation discussed and he is in agreement - Update CBC Hypertension: - Blood pressure readings at home around 140/70 to 80, higher than target range of <130/80 - Update CMP - Advised to reduce salt intake -he acknowledged that this will be difficult as he works in a [employer],makes his own Kabas and so many of the ethnic foods he enjoys are high in salt. - Pending results of lab work we will either increase his spironolactone or consider additional agents - Guidelines for ACC directed blood pressure log provided, once medication changes made, they will keep for 5 days or so, his daughter acted as ice seller, she will sign up for the portal today so that we might communicate more easily in that way. Follow-up: - Patient will follow up in 1 year Problem List Items Addressed This Visit Persistent atrial fibrillation ([facility] V24, [facility] V28) - Primary Relevant Medications warfarin (COUMADIN) 2.5 mg tablet Other Relevant Orders ECG 12 lead (Completed) CBC and differential Comprehensive metabolic panel Thank you for allowing us to participate in the care of this patient. Today's documentation was made using voice recognition software.This note may contain grammatical errors secondary to this software. Cosigned by Haroon Brito MD at 05/25/2025 3:32 PM EDT documented in this encounter Plan of Treatment Not on file documented as of this encounter Procedures Procedure Name Priority Date/Time Associated Diagnosis Comments ECG 12-LEAD Routine 05/25/2025 8:18 AM EDT Persistent atrial fibrillation ([facility]/HCC V24, [facility] V28) documented in this encounter Results * (ABNORMAL) Comprehensive metabolic panel (05/25/2025 8:19 AM EDT) Sodium 138 133 - 145 mmol/L LAB CHEMISTRY METHOD 05/25/2025 11:17 AM [facility] Potassium 5.1 3.5 - 5.5 mmol/L LAB CHEMISTRY METHOD 05/25/2025 11:17 AM [facility] Chloride 107 96 - 110 mmol/L LAB CHEMISTRY METHOD 05/25/2025 11:17 AM [facility] CO2 25 21 - 32 mmol/L LAB CHEMISTRY METHOD 05/25/2025 11:17 AM [facility] Anion Gap 6 3 - 11 LAB CHEMISTRY METHOD 05/25/2025 11:17 AM [facility] Glucose 126(H) 70 - 100 mg/dL LAB CHEMISTRY METHOD 05/25/2025 11:17 AM [facility] BUN 22 5 - 25 mg/dL LAB CHEMISTRY METHOD 05/25/2025 11:17 AM [facility] Creatinine 1.14 0.70 - 1.30 mg/dL LAB CHEMISTRY METHOD 05/25/2025 11:17 AM [facility] eGFR 67 >=60 mL/min/1. 73m2 LAB CHEMISTRY METHOD 05/25/2025 11:17 AM [facility] Comment:Calculation based on the Chronic Kidney Disease Epidemiology Collaboration (CKD-EPI) equation refit without adjustment for race. BUN/Creatinine Ratio 19.3 LAB CHEMISTRY METHOD 05/25/2025 11:17 AM [facility] Calcium 9.6 8.5 - 10.5 mg/dL LAB CHEMISTRY METHOD 05/25/2025 11:17 AM EDT [facility] AST (SGOT) 31 10 - 42 unit/L LAB CHEMISTRY METHOD 05/25/2025 11:17 AM EDT [facility] ALT (SGPT) 39 10 - 60 unit/L LAB CHEMISTRY METHOD 05/25/2025 11:17 AM EDT [facility] Alkaline Phosphatase 54 42 - 121 unit/L LAB CHEMISTRY METHOD 05/25/2025 11:17 AM EDT [facility] Total Protein 7.7 6.0 - 8.0 g/dL LAB CHEMISTRY METHOD 05/25/2025 11:17 AM EDT [facility] Albumin 4.2 3.2 - 5.0 g/dL LAB CHEMISTRY METHOD [facility] Total Bilirubin 0.7 0.0 - 1.4 mg/dL LAB CHEMISTRY METHOD 05/25/2025 11:17 AM EDT [facility] Blood Venous blood specimen / Unknown Venipuncture / Unknown 05/25/2025 8:19 AM EDT 05/25/2025 8:19 AM EDT us Kailee Luna NP LAB BLOOD ORDERABLES Final R esult [facility] [address] [place] [address], * ECG 12 lead (05/25/2025 8:18 AM EDT) Ventricular Rate ECG 75 BPM GEMUSE Atrial Rate 80 BPM GEMUSE QRS Duration 94 ms GEMUSE Q-T Interval 408 ms GEMUSE QTc 455 ms GEMUSE R Mayview 41 degrees GEMUSE T Mayview 35 degrees GEMUSE ECG Interpretation Atrial fibrillation Low voltage QRS Abnormal ECG No previous ECGs available GEMUSE 05/25/2025 7:54 AM EDT us Kailee Luna ZIPPER SETTER LOCKSTITCH ECG ORDERABLES Final Result GEMUSE documented in this encounter Visit Diagnoses Diagnosis Persistent atrial fibrillation (CMS/HCC V24, CMS/HCC V28)- Primary Atrial fibrillation documented in this encounter Historical Medications * This list may reflect changes made after this encounter. xyydx-0o-isd-epa- fish oil (Fish OiL) 350-600 mg capsule Take by mouth. warfarin (COUMADIN) 2.5 mg tablet Take by mouth 1 (one) time each day with dinner. Managed by [facility] added in this encounter Care Teams Rd Manager Relationship Specialty Start Date End Date Jovany Peng MD [address] [place] [address] PCP - General Internal Medicine 02/09/22 documented as of this encounter
--- OUTSIDE RECORDS SUMMARY | 2025-05-28 13:07 | XMS_ITS | Encounter Summary ---
Author Organization [employer] Address [address] [facility] 7t [place] [address] Care Team Providers Care Electrical Assembly Supervisor Name Role Phone Jovany Peng MD Primary Care Provider +1- [phone] Encounter Details Date Type Department Care Team (Late st Contact Info) Description 07/11/2023 Abstract [facility] [address] [place] [address] Jovany Peng MD [address] [place], [place] [id number] Social History Tobacco Use Types Packs/Day Years [...] on filedocumented in this encounter Care Teams Electrical Assembly Supervisor Relationship Specialty Start Date End Date Jovany Peng MD [address] [place] [address] PCP - General Internal Medicine 08/31/13 documented as of this encounter
--- OUTSIDE RECORDS SUMMARY | 2025-05-28 13:07 | XMS_ITS | Encounter Summary ---
Author Organization [employer] Address [address] [facility] 7t [place] [address] Care Team Providers Care Method Consultant Name Role Phone Jovany Peng MD Primary Care Provider [phone]- [phone] Reason for Visit * Reason Onset Date Comments Referral 06/26/2023 Encounter Details Date Type Department Care Team ([facility] st Contact Info) Description 06/26/2023 Telephone [facility] MED & PEDS [address] [place] [address] Jovany Peng MD [address] [place] [address] Referral Social History Tobacco Use Types Packs/Day [...] of preference. Dr. Eugene Zamarripa MD [address] [place] [address] documented in this encounter Plan of Treatment Not on file documented as of this encounter Visit Diagnoses Not on filedocumented in this encounter Care Teams Method Consultant Relationship Specialty Start Date End Date Jovany Peng MD [address] [place] [address] PCP - General Internal Medicine 08/31/13 documented as of this encounter
--- OUTSIDE RECORDS SUMMARY | 2025-05-28 13:07 | XMS_ITS | Encounter Summary ---
Author Organization [employer] Address [address] [facility] 7t [place] [address] Care Team Providers Care Banking Teacher Name Role Phone Jovany Peng MD Primary Care Provider [phone]- [phone] Encounter Details Date Type Department Care Team ([facility] st Contact Info) Description 02/19/2025 Orders Only [facility] MED & PEDS [address] [place] [address] Jovany Peng MD [address] [place] [address] Atrial fibrillation, unspecified type (CMS/HCC) Social History [...] (CMS/HCC) documented in this encounter Care Teams Banking Teacher Relationship Specialty Start Date End Date Jovany Peng MD [address] [place] [address] PCP - General Internal Medicine 08/31/13 documented as of this encounter
--- OUTSIDE RECORDS SUMMARY | 2025-05-28 13:07 | XMS_ITS | Encounter Summary ---
Author Organization [employer] Address [address] [facility] 7t [place] [address] Care Team Providers Care Member Services Coordinator Name Role Phone Jovany Peng MD Primary Care Provider +1- [phone] Reason for Visit * Reason Onset Date Comments FYI 05/30/2023 Encounter Details Date Type Department Care Team ([facility] st Contact Info) Description 05/30/2023 Telephone [facility] PEDS [address] [place] [address] Jovany Peng MD [address] [place] [address] FYI Social History Tobacco Use Types Packs/Day [...] AM EDT Tc from daughter advising PCP, wet cotton feeder Dr. Valentino upped the dosage of dilTIAZem XR (Dilacor XR) 120 MG 24 hr capsule to Dilt-XR 240 MG 24 hr capsule. States she does not want pharmacy to be confused. documented in this encounter Plan of Treatment Not on file documented as of this encounter Visit Diagnoses Not on filedocumented in this encounter Care Teams Member Services Coordinator Relationship Specialty Start Date End Date Jovany Peng MD [address] [place] [address] PCP - General Internal Medicine 08/31/13 documented as of this encounter
--- OUTSIDE RECORDS SUMMARY | 2025-05-28 13:07 | XMS_ITS | Clinical Summary ---
Author Organization [employer] Address [address] [facility] 7t [place] [address] Care Team Providers Care Licensed Customs Broker Name Role Phone Jovany Peng MD Primary Care Provider [phone] Medications Dilt-XR 240 MG 24 hr capsule TAKE 1 CAPSULE BY MOUTH DAILY 3 Active omega-3 (Fish Oil) 1000 MG capsule Take 1,000 mg by mouth in the morning. Active calcium carbonate (Os-Weston) 1250 (500 Ca) MG chewable tablet Chew 1 tablet in the morning. Active magnesium 30 MG tablet Take 30 mg by mouth 2 times daily. Active warfarin (Coumadin) 2.5 MG tabletIndication s:Atrial fibrillation, unspecified type (CMS/HCC) TAKE 3 TO 4 TABLETS BY MOUTH EVERY DAY DIRECTED BY COUMADIN CLINIC 360 tablet 5 Active Active Problems Problem Noted Date Diagnosed [...] Encounters Date Type Department Care Team Description 04/30/2025 Orders Only GENERIC EXTERNAL DATA DEPARTMENT Provider, Generic External Data 04/02/2025 Orders Only GENERIC EXTERNAL DATA DEPARTMENT Provider, Generic External Data 02/25/2025 Orders Only GENERIC EXTERNAL DATA DEPARTMENT [...] 70 07/16/2023 9:57 AM EST Temperature 36.1 C (96.9 F) 07/16/2023 9:57 AM EST Respiratory Rate 19 07/16/2023 9:57 AM EST [...] older (1 - 1-dose 75+ series) 2023 Tobacco Screening 07/16/2024 07/16/2023 COVID-19 Vaccine (3 - 2024-2 6 season) 2025 12/14/2020, 11/16/2020 Influenza Vaccine (#1) 2025 Lipid Panel 11/15/2026 11/15/2021 Colonoscopy Discontinued 06/30/2019, [...] Comments PROTHROMBIN TIME WHOLE BLD POC Routine 04/30/2025 1:00 PM EDT ~PT, ~INR - ANTI COAG CLINIC Routine 04/30/2025 1:00 PM EDT PROTHROMBIN TIME WHOLE BLD POC Routine 04/02/2025 1:07 PM EDT ~PT, ~INR - ANTI COAG CLINIC Routine 04/02/2025 1:07 PM EDT PROTHROMBIN TIME WHOLE BLD POC Routine 02/25/2025 2:41 PM EDT ~PT, ~INR - ANTI COAG CLINIC Routine 02/25/2025 2:41 PM EDT LIPID PANEL, STANDARD Routine 11/15/2021 8:31 AM EST HM COLONOSCOPY Routine 06/30/2019 from Last 3 Months or Most Recently Relevant to Health Maintenance Results * (ABNORMAL) PROTHROMBIN TIME WHOLE BLD POC (04/30/2025 1:00 PM EDT) Only the most recent of3 resultswithin the time period is included. Protime 19.9(H) 11.1 - 13.5 sec [facility] 04/30/2025 1:00 PM EDT 04/30/2025 1:02 PM EDT Generic External Data Provider LAB BLOOD ORDERAB LES Final Result Performing Organization Address [facility] de Phone Number [facility] [address] [place] [phone] * (ABNORMAL) ~PT, ~INR - ANTI COAG CLINIC (04/30/2025 1:00 PM EDT) Only the most recent of3 resultswithin the time period is included. Pathologist [facility] Prothrombin Time INR 1.7(H) 0.9 - 1.1 [facility] Comment:METER #: [id number] TERNATIONAL NORMALIZED RATIO (INR) REFERENCE RANGES Reference RangeFor patients not on anticoagulant therapy: 0.9 - 1.1INR ranges for oral anticoagulanttherapy:For prevention and treatment of venous thrombosis and pulmonary embolism: 2.0 - 3.0For acute myocardial infarction with aspirin therapy: 2.0 - 3.0For acute myocardial infarction without aspirin therapy: 3.0 - 4.0For patients with mechanical prosthetic heart valves: 2.5 - 3.5 04/30/2025 1:00 PM EDT 04/30/2025 1:02 PM EDT us Generic External Data Provider LAB BLOOD ORDERAB LES Final Result Performing Organization Address [facility] Co de Phone Number [facility] [address] [place] [address] [phone] * LIPID PANEL, STANDARD (11/15/2021 8:31 AM EST) Chol/HDLC Ratio 3.4 <5.0 (calc) [facility] Cholesterol, Total 158 <200 mg/dL [facility] HDL Cholesterol 46 > OR = 40 mg/dL [facility] LDL Cholesterol 95 mg/dL (calc) [facility] Comment: Reference range: <100 Desirable range <100 mg/dL for primary prevention; <70 mg/dL for patients with CHD or diabetic patients with > or = 2 CHD risk factors. LDL-C is now calculated using the Chuyita calculation, which is a validated novel method providing better accuracy than the Friedewald equation in the estimation of LDL-C. Dallin HIGGINBOTHAM et al. CHARITO. 2013;310(19): 0942-9613 (http://education.S*Bio.IKOTECH/faq/USK270) Non-HDL Cholesterol 112 <130 mg/dL (calc) [facility] Comment: For patients with diabetes plus 1 major ASCVD risk factor, treating to a non-HDL-C goal of <100 mg/dL (LDL-C of <70 mg/dL) is considered a therapeutic option. Triglycerides 83 <150 mg/dL [facility] 11/15/2021 8:31 AM EST Jovany Peng MD LAB BLOOD ORDERABLES Final Result Performing Organization Address City/State/[facility] Co de Phone Number [facility] [address] * Colonoscopy (06/30/2019) Pathologist [facility] Colonoscopy Normal Normal Narrative Staci Gustafson - 06/30/2019 Recommended 5 year follow up Historical Provider HEALTH MAINTENANCE Final Result from Last 3 Months or Most Recently Relevant to Health Maintenance Insurance [facility] STANDARD MEDICARE SASHA Downs Care Teams Licensed Customs Broker Relationship Specialty Start Date End Date Jovany Peng MD [address] [place] [address] SASHA Downs [phone] PCP - General Internal Medicine 08/31/13
--- OUTSIDE RECORDS SUMMARY | 2025-05-28 13:07 | XMS_ITS | Encounter Summary ---
Author Organization [employer] Address [address] [facility] 7t [place] [address] Care Team Providers Care Industrial Engineering Manager Name Role Phone Jovany Peng MD Primary Care Provider [phone]- [phone] Reason for Visit * Reason Onset Date Comments Medication Question 01/14/2025 Encounter Details Date Type Department Care Team (Late st Contact Info) Description 01/14/2025 Telephone [facility] [address] [place] [address] Jovany Peng MD [address] [place], [place] [phone] Medication Question Social History Tobacco Use Types [...] on filedocumented in this encounter Care Teams Industrial Engineering Manager Relationship Specialty Start Date End Date Jovany Peng MD [address] [place] [phone] PCP - General Internal Medicine 08/31/13 documented as of this encounter
--- OUTSIDE RECORDS SUMMARY | 2025-05-28 13:07 | XMS_ITS | Encounter Summary ---
Author Organization [employer] Address [address] [facility] 7[address] [place] [address] Care Team Providers Care Store Planner Name Role Phone Jovany Peng MD Primary Care Provider [phone]- [phone] Encounter Details Date Type Department Care Team ([facility] st Contact Info) Description 01/14/2025 Orders Only [facility] CHC MED & PEDS [address] [place] [address] Jovany Peng MD [address] [place] [address] Atrial fibrillation, unspecified type (CMS/HCC) Social History [...] (CMS/HCC) documented in this encounter Care Teams Store Planner Relationship Specialty Start Date End Date Jovnay Peng MD [address] [place] [address] PCP - General Internal Medicine 08/31/13 documented as of this encounter
--- OUTSIDE RECORDS SUMMARY | 2025-05-28 13:07 | XMS_ITS | Clinical Summary ---
Author Organization [address] [place] [address] Address [address] [place] [address] Phone Care Team Providers Care Ticket Machine Operator Name Role Phone Jovany Peng MD Primary Care Provider [phone] Allergies No known active allergies Medications spironolactone (ALDACTONE) 25 mg tablet TAKE 1/2 TABLET BY MOUTH DAILY 45 tablet 1 01/11/2025 Active DILT-XR 240 mg 24 hr capsule Take 1 capsule (240 mg total) by mouth 1 (one) time each day. 90 capsule 04/27/2025 Active warfarin (COUMADIN) 2.5 mg tablet Take by mouth 1 (one) time each day with dinner. Managed by [facility] Coumadin clinic Active paxov-[id number]-ep a-fish oil (Fish OiL) 350-600 mg capsule Take by mouth. Active Active Problems Problem Noted Date Diagnosed Date HTN (hypertension) 05/02/2022 Overview (05/18/2025): Primary hypertension. No renal disease, chronic NSAID use was, excessive alcohol or caffeine, or high sodium intake. Last Assessment & Plan: Elevated blood pressure this morning in the office with a higher when at home. I suggest that he keep a detailed log for 2 weeks and get back to me if the systolic blood pressure averages greater than 130 to 140 mmHg. In that case I would consider adding a diuretic blood pressure medicine or ARB. 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 Treated with diltiazem. Anticoagulated with warfarin with good tolerance. Chadsvasc score is a 3 for age and hypertension. . He had an echocardiogram in 2007 and again in 2021 with no significant valvular disease He does have left atrial enlargement Last Assessment & Plan: Atrial fibrillation appears well rate controlled and minimally symptomatic. Will continue with rate control using diltiazem and anticoagulation with warfarin. We discussed the availability of left atrial appendage closure but no strong rationale at this point and he is comfortable with continued anticoagulation using Coumadin. Encounters Date Type Department Care Team Description 05/25/2025 7:40 AM EDT Office Visit [facility] Cardiology [facility] [address] [place] [phone] Kailee Luna NP Persistent atrial fibrillation ([facility] V24, [facility] V28) (Primary Dx) 04/27/2025 Telephone [facility] Cardiology [facility] [address] [place] [phone] Haroon Brito MD from Last 3 Months Medical History Medical History Date Comments Osteoarthritis [...] Mass Index 29.13 05/25/2025 7:46 AM EDT Plan of Treatment Health Maintenance Due Date Last Done Comments Pneumococcal Vaccine: 50+ Years (1 of 1 - PCV) 1998 Zoster Vaccines (1 of 2) 1998 Falls Risk Assessment 08/13/2022 Hepatitis C Screening 08/13/2022 Medicare Annual Wellness Visit 08/13/2022 Social Influencers of Health Screening 08/13/2022 DTaP,Tdap,and Td Vaccines (2 - Td or Tdap) 07/30/2023 07/30/2013 RSV Immunization Adult Patients (1 - 1-dose 75+ series) 2023 Depression Screening 09/09/2024 COVID-19 Vaccine (3 - 2024-2 6 season) 2025 12/14/2020, 11/16/2020 Influenza Vaccine (#1) 2025 Hypertension/CHF/CAD Annual BMP Blood Test 05/25/2026 05/25/2025 Cholesterol Screening (Lipid Panel) 11/15/2026 11/15/2021 HIB [...] to complete this topic RSV Immunization Patients Under 20 months Aged Out No longer eligible b ased on patient's age to complete this topic Varicella Vaccines Aged Out No longer eligible based on patient's age to complete this topic Procedures Procedure Name Priority Date/Time Associated Diagnosis Comments CBC WITH AUTO DIFFERENTIAL Routine 05/25/2025 8:19 AM EDT Persistent atrial fibrillation (CMS/HCC V24, CMS/HCC V28) COMPREHENSIVE METABOLIC PANEL Routine 05/25/2025 8:19 AM EDT Persistent atrial fibrillation (CMS/HCC V24, CMS/HCC V28) CBC AND DIFFERENTIAL Routine 05/25/2025 8:19 AM EDT Persistent atrial fibrillation (CMS/HCC V24, CMS/HCC V28) ECG 12-LEAD Routine 05/25/2025 8:18 AM EDT Persistent atrial fibrillation (CMS/HCC V24, CMS/HCC V28) EXTERNAL CLINICAL LAB Routine 04/30/2025 2:26 PM EDT from Last 3 Months Results * (ABNORMAL) CBC auto differential (05/25/2025 8:19 AM EDT) WBC 8.2 4.8 - 10.8 K/mcL LAB HEMETOLOGY METHOD 05/25/2025 10:28 AM [facility] RBC 5.20 4.50 - 5.50 M/mcL LAB HEMETOLOGY METHOD 05/25/2025 10:28 AM [facility] Hemoglobin 15.8 13.5 - 17.5 g/dL LAB HEMETOLOGY METHOD 05/25/2025 10:28 AM [facility] Hematocrit 45.9 42.0 - 54.0 % LAB HEMETOLOGY METHOD 05/25/2025 10:28 AM [facility] MCV 88.3 79.0 - 98.0 FL LAB HEMETOLOGY METHOD 05/25/2025 10:28 AM [facility] MCH 30.4 27.0 - 32.0 pcg LAB HEMETOLOGY METHOD 05/25/2025 10:28 AM [facility] MCHC 34.4 32.0 - 37.0 g/dL LAB HEMETOLOGY METHOD 05/25/2025 10:28 AM [facility] RDW 12.7 11.0 - 15.0 % LAB HEMETOLOGY METHOD 05/25/2025 10:28 AM [facility] Platelets 224 130 - 400 K/mcL LAB HEMETOLOGY METHOD 05/25/2025 10:28 AM [facility] MPV 11.1(H) 7.0 - 11.0 FL LAB HEMETOLOGY METHOD 05/25/2025 10:28 AM [facility] NRBC 0.0 <1.0 % LAB HEMETOLOGY METHOD 05/25/2025 10:28 AM [facility] NRBC Absolute 0.00 <0.10 K/mcL LAB HEMETOLOGY METHOD 05/25/2025 10:28 AM [facility] Neutrophils Relative 60.5 % LAB HEMETOLOGY METHOD 05/25/2025 10:28 AM [facility] Lymphocytes Relative 25.2 % LAB HEMETOLOGY METHOD 05/25/2025 10:28 AM [facility] Monocytes Relative 9.3 % LAB HEMETOLOGY METHOD 05/25/2025 10:28 AM [facility] Eosinophils Relative 4.6 % LAB HEMETOLOGY METHOD 05/25/2025 10:28 AM [facility] Basophils Relative 0.2 % LAB HEMETOLOGY METHOD 05/25/2025 10:28 AM [facility] Immature Granulocytes Relative 0.2 % LAB HEMETOLOGY METHOD 05/25/2025 10:28 AM [facility] Neutrophils Absolute 4.95 1.50 - 7.00 K/mcL LAB HEMETOLOGY METHOD 05/25/2025 10:28 AM EDT [facility] Lymphocytes Absolute 2.06 1.00 - 5.00 K/[facility] LAB HEMETOLOGY METHOD 05/25/2025 10:28 AM EDT [facility] Monocytes Absolute 0.76 0.20 - 1.00 K/[facility] LAB HEMETOLOGY METHOD 05/25/2025 10:28 AM EDT [facility] Eosinophils Absolute 0.38 0.00 - 0.50 K/[facility] LAB HEMETOLOGY METHOD 05/25/2025 10:28 AM EDT [facility] Basophils Absolute 0.02 0.00 - 0.20 K/[facility] LAB HEMETOLOGY METHOD 05/25/2025 10:28 AM EDT [facility] Immature Granulocytes Absolute 0.02 0.00 - 0.03 K/[facility] LAB HEMETOLOGY METHOD 05/25/2025 10:28 AM EDT [facility] Blood Venous blood specimen / Unknown Venipuncture / Unknown 05/25/2025 8:19 AM EDT 05/25/2025 8:19 AM EDT us Kailee Luna COLOR CONTROL OPERATOR LAB BLOOD ORDERABLES Final R esult [facility] [address] [place] [address], * (ABNORMAL) Comprehensive metabolic panel (05/25/2025 8:19 AM EDT) Sodium 138 133 - 145 mmol/L LAB CHEMISTRY METHOD 05/25/2025 11:17 AM EDT [facility] Potassium 5.1 3.5 - 5.5 mmol/L LAB CHEMISTRY METHOD 05/25/2025 [facility] Chloride 107 96 - 110 mmol/L LAB CHEMISTRY METHOD 05/25/2025 11:17 AM EDT [facility] CO2 25 21 - 32 mmol/L LAB CHEMISTRY METHOD 05/25/2025 11:17 AM [facility] Anion Gap 6 3 - 11 LAB CHEMISTRY METHOD 05/25/2025 11:17 AM [facility] Glucose 126(H) 70 - 100 mg/dL LAB CHEMISTRY METHOD 05/25/2025 11:17 AM [facility] BUN 22 5 - 25 mg/dL LAB CHEMISTRY METHOD 05/25/2025 11:17 AM [facility] Creatinine 1.14 0.70 - 1.30 mg/dL LAB CHEMISTRY METHOD 05/25/2025 11:17 AM [facility] eGFR 67 >=60 mL/min/1. 73m2 LAB CHEMISTRY METHOD 05/25/2025 11:17 AM [facility] Comment:Calculation based on the Chronic Kidney Disease Epidemiology Collaboration (CKD-EPI) equation refit without adjustment for race. BUN/Creatinine Ratio 19.3 LAB CHEMISTRY METHOD 05/25/2025 11:17 AM [facility] Calcium 9.6 8.5 - 10.5 mg/dL LAB CHEMISTRY METHOD 05/25/2025 11:17 AM [facility] AST (SGOT) 31 10 - 42 unit/L LAB CHEMISTRY METHOD 05/25/2025 11:17 AM [facility] ALT (SGPT) 39 10 - 60 unit/L LAB CHEMISTRY METHOD 05/25/2025 11:17 AM [facility] Alkaline Phosphatase 54 42 - 121 unit/L LAB CHEMISTRY METHOD 05/25/2025 11:17 AM [facility] Total Protein 7.7 6.0 - 8.0 g/dL LAB CHEMISTRY METHOD 05/25/2025 11:17 AM [facility] Albumin 4.2 3.2 - 5.0 g/dL LAB CHEMISTRY METHOD 05/25/2025 11:17 AM [facility] Total Bilirubin 0.7 0.0 - 1.4 mg/dL LAB CHEMISTRY METHOD 05/25/2025 11:17 AM EDT [facility] Blood Venous blood specimen / Unknown Venipuncture / Unknown 05/25/2025 8:19 AM EDT 05/25/2025 8:19 AM EDT Kailee Luna COLOR CONTROL OPERATOR LAB BLOOD ORDERABLES Final R esult Performing Organization Address City/[facility]/ZIP Co de Phone Number [facility] [address] [place] [address], * ECG 12 lead (05/25/2025 8:18 AM EDT) Ventricular Rate ECG 75 BPM GEMUSE Atrial Rate 80 BPM GEMUSE QRS Duration 94 ms GEMUSE Q-T Interval 408 ms GEMUSE QTc 455 ms GEMUSE R [place] 41 degrees GEMUSE T [place] 35 degrees GEMUSE ECG Interpretation Atrial fibrillation Low voltage QRS Abnormal ECG No previous ECGs available GEMUSE 05/25/2025 7:54 AM EDT Kailee Luna COLOR CONTROL OPERATOR ECG ORDERABLES Final Result Performing Organization Address City/[facility] Co de Phone Number GEMUSE * External clinical lab (04/30/2025 2:26 PM EDT) Historical Provider LAB BLOOD ORDERABLES Nikole l Result from Last 3 Months Insurance MEDICARE MEDICAID - [place] Care Teams Ticket Machine Operator Relationship Specialty Start Date End Date Jovany Peng MD [address] [place] [address] PCP - General Internal Medicine 02/09/22
--- OUTSIDE RECORDS SUMMARY | 2025-05-28 13:07 | XMS_ITS | Encounter Summary ---
Author Organization [employer] Address [address] [facility] 7t [place] [address] Care Team Providers Care Pigment Mixer Name Role Phone Jovany Peng MD Primary Care Provider [phone]- [phone] Encounter Details Date Type Department Care Team ([facility] st Contact Info) Description 04/02/2023 Orders Only [facility] CHC MED & PEDS [address] [place], [place] [phone] Lilian Roberto LPN Social History Tobacco Use [...] on filedocumented in this encounter Care Teams Pigment Mixer Relationship Specialty Start Date End Date Jovany Peng MD [address] [place] [address] PCP - General Internal Medicine 08/31/13 documented as of this encounter
[2025-05-28 13:09] LABS: Prothrombin Time Whole Bld POC 30.7 sec (11.1-13.5); ~PT, ~INR - Anti Coag Clinic 2.6 (0.9-1.1)
--- NOTE | 2025-05-28 13:11 | MHC.OFFVISCO ---
Intake Intake Visit Reasons: Anticoagulation Allergies No Known Allergies (No Known Allergies*) Allergy (Verified 05/28/25 13:05) Medication List - Last Reconciled 05/28/25 by Tomasa Sadler RN diltiazem HCl ER (DILT-XR) 240 mg PO DAILY lisinopril 2.5 mg PO DAILY methocarbamol 500 mg PO BID spironolactone 12.5 mg PO DAILY warfarin 2.5 mg See Protocol PO DAILY Nursing Note INR: 2.6 in therapeutic range of 2-3 Medications and supplements reviewed No changes in health, diet, medications, or supplements, Denies any signs and symptoms of bleeding or bruising or clotting. Bleeding, bruising, clotting discussed Nutritional guidance given Dose: 7.5mg X 4 days and 10mg X 3 days (M/W/F) F/U INR: 4 weeks Patient verbalizes understanding of instructions given Anti-Coag Initial Assessment Social Hx Patient Tobacco Use Status: Former Tobacco user Tobacco use type: Cigarette alcohol intake: current Alcohol intake frequency: does not drink Coding Level of Care Code Est Patient Level 1 Diagnoses Current use of anticoagulant therapy Z79.01 Results AMB INR Fingerstick AMB INR Fingerstick 2.6 Last Edit by Tomasa Sadler RN on 05/28/25 13:10 interface delay Assessment & Plan Assessment & Plan (1) Current use of anticoagulant therapy: Code(s): 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
== END 2025-05-28 13:14 | disposition home or self-care (01) ==
LOC: HO.ACS 13:04
PROVIDERS: PCP Internal Medicine; Visit Provider Internal Medicine Medical Oncology
DX: Z79.01 Long term (current) use of anticoagulants (principal)

== ENCOUNTER → 2025-05-28 13:04 | Outpatient (BNVA) | payer MEDICARE, MEDICAID, SELFPAY | PROVIDERS: PCP Internal Medicine; Visit Provider Internal Medicine Medical Oncology | DX: Z51.81 Encounter for therapeutic drug level monitoring (principal); Z79.01 Long term (current) use of anticoagulants | CPT/HCPCS: 85610; 99211 ==

== ENCOUNTER 2025-06-25 13:03 | Outpatient (AMB) | payer MEDICARE, MEDICAID, SELFPAY ==
[2025-06-25 13:14] LABS: Prothrombin Time Whole Bld POC 27.8 sec (11.1-13.5); ~PT, ~INR - Anti Coag Clinic 2.3 (0.9-1.1)
--- NOTE | 2025-06-25 13:18 | MHC.OFFVISCO ---
Intake Intake Visit Reasons: Anticoagulation Allergies No Known Allergies (No Known Allergies*) Allergy (Verified 06/25/25 13:05) Medication List - Last Reconciled 06/25/25 by Ximena Mukherjee RN diltiazem HCl ER (DILT-XR) 240 mg PO DAILY lisinopril 2.5 mg PO DAILY spironolactone 12.5 mg PO DAILY warfarin 2.5 mg See Protocol PO DAILY Nursing Note INR: 2.3 in therapeutic range Medications and supplements reviewed No changes in health, diet, medications, or supplements, Denies any signs and symptoms of bleeding or bruising or clotting. 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
--- OUTSIDE RECORDS SUMMARY | 2025-06-25 15:40 | XMS_ITS | Clinical Summary ---
Author Organization [address] [place] [address] Address [address] [place] [address] Phone Care Team Providers Care Bending Roll Operator Name Role Phone Jovany Peng MD Primary Care Provider +1 -[phone] Allergies No known active allergies Medications spironolactone (ALDACTONE) 25 mg tablet TAKE 1/2 TABLET BY MOUTH DAILY 45 tablet 1 01/11/2025 Active DILT-XR 240 mg 24 hr capsule Take 1 capsule (240 mg total) by mouth 1 (one) time each day. 90 capsule 04/27/2025 Active warfarin (COUMADIN) 2.5 mg tablet Take by mouth 1 (one) time each day with dinner. Managed by [facility] Coumadin clinic Active [id number] a-fish oil (Fish OiL) 350-600 mg capsule [...] CMS/HCC V28 ) 01/26/2022 Persistent atrial fibrillation ([facility] V24, [facility] V28) 07/30/2013 Overview (05/18/2025): Longstanding [...] Description 05/25/2025 7:40 AM EDT Office Visit [facility] Cardiology [facility] [address] [place] [phone] Kailee Luna NP Persistent atrial fibrillation ([facility] V24, [facility] V28) (Primary Dx) 04/27/2025 Telephone [facility] Cardiology [facility] [address] [place] [phone] Haroon Brito MD from Last 3 Months [...] K/mcL LAB HEMETOLOGY METHOD 05/25/2025 10:28 AM [facility] RBC 5.20 4.50 - 5.50 M/mcL LAB HEMETOLOGY METHOD 05/25/2025 10:28 AM [facility] Hemoglobin 15.8 13.5 - 17.5 g/dL LAB HEMETOLOGY METHOD 05/25/2025 10:28 AM [facility] Hematocrit 45.9 42.0 - 54.0 % LAB HEMETOLOGY METHOD 05/25/2025 10:28 AM [facility] MCV 88.3 79.0 - 98.0 FL LAB HEMETOLOGY METHOD 05/25/2025 10:28 AM [facility] MCH 30.4 27.0 - 32.0 pcg LAB HEMETOLOGY METHOD 05/25/2025 10:28 AM [facility] MCHC 34.4 32.0 - 37.0 g/dL LAB HEMETOLOGY METHOD 05/25/2025 10:28 AM [facility] RDW 12.7 11.0 - 15.0 % LAB HEMETOLOGY METHOD 05/25/2025 10:28 AM [facility] Platelets 224 130 - 400 K/mcL LAB HEMETOLOGY METHOD 05/25/2025 10:28 AM [facility] MPV 11.1(H) 7.0 - 11.0 FL LAB HEMETOLOGY METHOD 05/25/2025 10:28 AM [facility] NRBC 0.0 <1.0 % LAB HEMETOLOGY METHOD 05/25/2025 10:28 AM [facility] NRBC Absolute 0.00 <0.10 K/mcL LAB HEMETOLOGY METHOD 05/25/2025 10:28 AM [facility] Neutrophils Relative 60.5 % LAB HEMETOLOGY METHOD 05/25/2025 10:28 AM [facility] Lymphocytes Relative 25.2 % LAB HEMETOLOGY METHOD 05/25/2025 10:28 AM [facility] Monocytes Relative 9.3 % LAB HEMETOLOGY METHOD 05/25/2025 10:28 AM [facility] Eosinophils Relative 4.6 % LAB HEMETOLOGY METHOD 05/25/2025 10:28 AM [facility] Basophils Relative 0.2 % LAB HEMETOLOGY METHOD 05/25/2025 10:28 AM [facility] Immature Granulocytes Relative 0.2 % LAB HEMETOLOGY METHOD 05/25/2025 10:28 AM [facility] Neutrophils Absolute 4.95 1.50 - 7.00 K/mcL LAB HEMETOLOGY METHOD 05/25/2025 10:28 AM EDT [facility] Lymphocytes Absolute 2.06 1.00 - 5.00 K/[facility] LAB HEMETOLOGY METHOD 05/25/2025 10:28 AM EDT [facility] Monocytes Absolute 0.76 0.20 - 1.00 K/[facility] LAB HEMETOLOGY METHOD 05/25/2025 10:28 AM EDT [facility] Eosinophils Absolute 0.38 0.00 - 0.50 K/[facility] LAB HEMETOLOGY METHOD 05/25/2025 10:28 AM EDT [facility] Basophils Absolute 0.02 0.00 - 0.20 K/[facility] LAB HEMETOLOGY METHOD 05/25/2025 10:28 AM EDT [facility] Immature Granulocytes Absolute 0.02 0.00 - 0.03 K/[facility] LAB HEMETOLOGY METHOD 05/25/2025 10:28 AM EDT [facility] Blood Venous blood specimen / Unknown Venipuncture / Unknown 05/25/2025 8:19 AM EDT 05/25/2025 8:19 AM EDT us Kailee Luna BAIL BONDING AGENT LAB BLOOD ORDERABLES Final R esult [facility] [address] [place] [address], * (ABNORMAL) Comprehensive metabolic panel (05/25/2025 8:19 AM EDT) Sodium 138 133 - 145 mmol/L LAB CHEMISTRY METHOD 05/25/2025 11:17 AM EDT [facility] Potassium 5.1 3.5 - 5.5 mmol/L LAB CHEMISTRY METHOD [facility] Chloride 107 96 - 110 mmol/L LAB CHEMISTRY METHOD 05/25/2025 11:17 AM EDT [facility] CO2 25 21 - 32 mmol/L LAB CHEMISTRY METHOD 05/25/2025 11:17 AM [facility] Anion Gap 6 3 - 11 LAB CHEMISTRY METHOD 05/25/2025 11:17 AM [facility] Glucose 126(H) 70 - 100 mg/dL LAB CHEMISTRY METHOD 05/25/2025 11:17 AM [facility] BUN 22 5 - 25 mg/dL LAB CHEMISTRY METHOD 05/25/2025 11:17 AM [facility] Creatinine 1.14 0.70 - 1.30 mg/dL LAB CHEMISTRY METHOD 05/25/2025 11:17 AM [facility] eGFR 67 >=60 mL/min/1. 73m2 LAB CHEMISTRY METHOD 05/25/2025 11:17 AM [facility] Comment:Calculation based on the Chronic Kidney Disease Epidemiology Collaboration (CKD-EPI) equation refit without adjustment for race. BUN/Creatinine Ratio 19.3 LAB CHEMISTRY METHOD 05/25/2025 11:17 AM [facility] Calcium 9.6 8.5 - 10.5 mg/dL LAB CHEMISTRY METHOD 05/25/2025 11:17 AM [facility] AST (SGOT) 31 10 - 42 unit/L LAB CHEMISTRY METHOD 05/25/2025 11:17 AM [facility] ALT (SGPT) 39 10 - 60 unit/L LAB CHEMISTRY METHOD 05/25/2025 11:17 AM [facility] Alkaline Phosphatase 54 42 - 121 unit/L LAB CHEMISTRY METHOD 05/25/2025 11:17 AM [facility] Total Protein 7.7 6.0 - 8.0 g/dL LAB CHEMISTRY METHOD 05/25/2025 11:17 AM [facility] Albumin 4.2 3.2 - 5.0 g/dL LAB CHEMISTRY METHOD 05/25/2025 11:17 AM [facility] Total Bilirubin 0.7 0.0 - 1.4 mg/dL LAB CHEMISTRY METHOD 05/25/2025 11:17 AM EDT [facility] Blood Venous blood specimen / Unknown Venipuncture / Unknown 05/25/2025 8:19 AM EDT 05/25/2025 8:19 AM EDT Kailee Luna BAIL BONDING AGENT LAB BLOOD ORDERABLES Final R esult Performing Organization Address [facility] de Phone Number [facility] ([facility] [address] [place] [address], [place] [phone] * ECG 12 lead (05/25/2025 8:18 AM EDT) Ventricular Rate ECG 75 BPM GEMUSE Atrial Rate 80 BPM GEMUSE QRS Duration 94 ms GEMUSE Q-T Interval 408 ms GEMUSE QTc 455 ms GEMUSE R [place] 41 degrees GEMUSE T [place] 35 degrees GEMUSE ECG Interpretation Atrial fibrillation Low voltage QRS Abnormal ECG No previous ECGs available Confirmed by Sharita BRITO JOHN ([id number]) on 05/31/2025 8:30:27 AM GEMUSE 05/25/2025 7:54 AM EDT 05/31/2025 8:30 AM EDT Kailee Luna BAIL BONDING AGENT ECG ORDERABLES Edited Resul t - Final Performing Organization Address [facility] de Phone Number GEMUSE * External clinical lab (04/30/2025 2:26 PM EDT) Historical Provider LAB BLOOD ORDERABLES Nikole l Result from Last 3 Months Insurance MEDICARE MEDICAID - [place] Care Teams Bending Roll Operator Relationship Specialty Start Date End Date Jovany Peng MD [address] [place] [address] PCP - General Internal Medicine 02/09/22
--- OUTSIDE RECORDS SUMMARY | 2025-06-25 15:40 | XMS_ITS | Clinical Summary ---
Author Organization [employer] Address [address] [facility] 7t [place] [address] Care Team Providers Care Lift Electrician Name Role Phone Jovany Peng MD Primary Care Provider [phone] Medications Dilt-XR 240 MG 24 hr capsule [...] MG tabletIndication s:Atrial fibrillation, unspecified type (CMS/HCC) (HCC) TAKE 3 TO 4 TABLETS BY MOUTH [...] exam. 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 01/26/2022 06/26/2023 Impaired fasting glucose 11/16/2021 023 Decreased thyroid stimulating hormone level 11/0706/26/2023 Tubular adenoma of colon 01/22/2014 023 Osteoarthritis of hip 07/30/2013 06/26/2023 Atrial fibrillation (CMS/HCC) 07/30/2013 Encounters Date Type Department Care Team Description 06/25/2025 Orders Only GENERIC EXTERNAL DATA DEPARTMENT Provider, Generic External Data 05/31/2025 Orders Only [facility] [address] [place] [address] Provider, MD Mk 05/28/2025 Orders Only GENERIC EXTERNAL DATA DEPARTMENT Provider, Generic External Data 04/30/2025 Orders Only GENERIC EXTERNAL DATA DEPARTMENT [...] Comments PROTHROMBIN TIME WHOLE BLD POC Routine 06/25/2025 1:12 PM EDT ~PT, ~INR - ANTI COAG CLINIC Routine 06/25/2025 1:12 PM EDT PROTHROMBIN TIME WHOLE BLD POC Routine 05/28/2025 1:07 PM EDT ~PT, ~INR - ANTI COAG CLINIC Routine 05/28/2025 1:07 PM EDT ECG 12-LEAD Routine 05/25/2025 1:50 PM EDT PROTHROMBIN TIME WHOLE BLD POC Routine 04/30/2025 1:00 PM EDT ~PT, ~INR - ANTI COAG CLINIC Routine 04/30/2025 1:00 PM EDT PROTHROMBIN TIME WHOLE BLD POC Routine 04/02/2025 1:07 PM EDT ~PT, ~INR - ANTI COAG CLINIC Routine 04/02/2025 1:07 PM EDT LIPID PANEL, STANDARD Routine 11/15/2021 8:31 AM EST HM COLONOSCOPY Routine 06/30/2019 from Last 3 Months or Most Recently Relevant to Health Maintenance Results * (ABNORMAL) PROTHROMBIN TIME WHOLE BLD POC (06/25/2025 1:12 PM EDT) Only the most recent of4 resultswithin the time period is included. Protime 27.8(H) 11.1 - 13.5 sec [facility] 06/25/2025 1:12 PM EDT 06/25/2025 1:14 PM EDT us Generic External Data Provider LAB BLOOD ORDERAB LES Final Result [facility] [address] [place] [phone] * (ABNORMAL) ~PT, ~INR - ANTI COAG CLINIC (06/25/2025 1:12 PM EDT) Only the most recent of4 resultswithin the time period is included. Prothrombin Time INR 2.3(H) 0.9 - 1.1 [facility] Comment:METER #: [id number] TERNATIONAL NORMALIZED RATIO (INR) REFERENCE RANGES Reference RangeFor patients not on anticoagulant therapy: 0.9 - 1.1INR ranges for oral anticoagulanttherapy:For prevention and treatment of venous thrombosis and pulmonary embolism: 2.0 - 3.0For acute myocardial infarction with aspirin therapy: 2.0 - 3.0For acute myocardial infarction without aspirin therapy: 3.0 - 4.0For patients with mechanical prosthetic heart valves: 2.5 - 3.5 06/25/2025 1:12 PM EDT 06/25/2025 1:14 PM EDT us Generic External Data Provider LAB BLOOD ORDERAB LES Final Result [facility] [address] [place] [phone] * ECG 12 lead (05/25/2025 1:50 PM EDT) Historical Provider ECG ORDERABLES Final Res ult * LIPID PANEL, STANDARD (11/15/2021 8:31 AM EST) Chol/HDLC Ratio 3.4 <5.0 (calc) [facility] Cholesterol, Total 158 <200 mg/dL [facility] HDL Cholesterol 46 > OR = 40 mg/dL [facility] LDL Cholesterol 95 mg/dL (calc) [facility] Comment: Reference range: <100 Desirable range <100 mg/dL for primary prevention; <70 mg/dL for patients with CHD or diabetic patients with > or = 2 CHD risk factors. LDL-C is now calculated using the Chuyita calculation, which is a validated novel method providing better accuracy than the Friedewald equation in the estimation of LDL-C. Dallin HIGGINBOTHAM et al. CHARITO. 2013;310(19): 7182-9778 (http://education.[employer].com/faq/QHF564) Non-HDL Cholesterol 112 <130 mg/dL (calc) [facility] Comment: For patients with diabetes plus 1 major ASCVD risk factor, treating to a non-HDL-C goal of <100 mg/dL (LDL-C of <70 mg/dL) is considered a therapeutic option. Triglycerides 83 <150 mg/dL [facility] 11/15/2021 8:31 AM EST Jovany Peng MD LAB BLOOD ORDERABLES Final Result [facility] [address] [place] [id number] * Hm Colonoscopy (06/30/2019) Colonoscopy Normal Normal Narrative Staci Gustafson - 06/30/2019 Recommended 5 year follow up Historical Provider HEALTH MAINTENANCE Final Result from Last 3 Months or Most Recently Relevant to Health Maintenance Insurance [facility] STANDARD MEDICARE Care Teams Lift Electrician Relationship Specialty Start Date End Date Jovany Peng MD [address] [place] [address] Yareli SASHA [id number] PCP - General Internal Medicine 08/31/13
--- OUTSIDE RECORDS SUMMARY | 2025-06-25 15:40 | XMS_ITS | Encounter Summary ---
Author Organization [employer] Address [address] [facility] 7t [place] [address] Care Team Providers Care Aix System Administrator Name Role Phone Jovany Peng MD Primary Care Provider [phone]- [phone] Encounter Details Date Type Department Care Team (Late st Contact Info) Description 07/11/2023 Abstract [facility] MEDICINE [address] [place] [address] Jovany Peng MD [address] [place], [place] [phone] Social History Tobacco Use Types Packs/Day Years [...] on filedocumented in this encounter Care Teams Aix System Administrator Relationship Specialty Start Date End Date Jovany Peng MD [address] [place] [address] PCP - General Internal Medicine 08/31/13 documented as of this encounter
--- OUTSIDE RECORDS SUMMARY | 2025-06-25 15:40 | XMS_ITS | Encounter Summary ---
Author Organization [employer] Address [address] [facility] 7[address] [place] [address] Care Team Providers Care Griddle Attendant Name Role Phone Jovany Peng MD Primary Care Provider [phone]- [phone] Reason for Visit * Reason Onset Date Comments Referral 06/26/2023 Encounter Details Date Type Department Care Team ([facility] st Contact Info) Description 06/26/2023 Telephone [facility] CHC MED & PEDS [address] [place] [address] Jovany Peng MD [address] [place] [address] Referral Social History Tobacco Use Types Packs/Day [...] of preference. Dr. Eugene Zamarripa MD [address] [place] [address] documented in this encounter Plan of Treatment Not on file documented as of this encounter Visit Diagnoses Not on filedocumented in this encounter Care Teams Griddle Attendant Relationship Specialty Start Date End Date Jovany Peng MD [address] [place] [address] PCP - General Internal Medicine 08/31/13 documented as of this encounter
--- OUTSIDE RECORDS SUMMARY | 2025-06-25 15:40 | XMS_ITS | Encounter Summary ---
Author Organization [employer] Address [address] [facility] 7t [place] [address] Care Team Providers Care Hotel Yardperson Name Role Phone Jovany Peng MD Primary Care Provider [phone]- [phone] Encounter Details Date Type Department Care Team (Late st Contact Info) Description 05/31/2025 Orders Only [facility] [address] [place] [address] Provider, MD Mk Social History Tobacco Use Types Packs/Day Years [...] Associated Diagnosis Comments ECG 12-LEAD Routine 05/25/2025 1:50 PM EDT documented in this encounter Results * ECG 12 lead (05/25/2025 1:50 PM EDT) us Historical Provider ECG ORDERABLES Final Res ult documented in this encounter Visit Diagnoses Not on filedocumented in this encounter Care Teams Hotel Yardperson Relationship Specialty Start Date End Date Jovany Peng MD [address] [facility] [address] PCP - General Internal Medicine 08/31/13 documented as of this encounter
--- OUTSIDE RECORDS SUMMARY | 2025-06-25 15:40 | XMS_ITS | Encounter Summary ---
Author Organization [employer] Address [address] [facility] 7t [place] [address] Care Team Providers Care Manager Wound Care Name Role Phone Jovany Peng MD Primary Care Provider [phone]- [phone] Encounter Details Date Type Department Care Team ([facility] st Contact Info) Description 01/14/2025 Orders Only [facility] CHC MED & PEDS [address] [place] [address] Jovany Peng MD [address] [place] [address] Atrial fibrillation, unspecified type (CMS/HCC) Social History [...] Diagnoses Diagnosis Atrial fibrillation, unspecified type (CMS/HCC) (HCC) documented in this encounter Care Teams Manager Wound Care Relationship Specialty Start Date End Date Jovany Peng MD [address] [place] [address] PCP - General Internal Medicine 08/31/13 documented as of this encounter
--- OUTSIDE RECORDS SUMMARY | 2025-06-25 15:40 | XMS_ITS | Encounter Summary ---
Author Organization [employer] Address [address] [facility] 7t [place] [address] Care Team Providers Care Peanut Separator Name Role Phone Jovany Peng MD Primary Care Provider [phone]- [phone] Encounter Details Date Type Department Care Team ([facility] st Contact Info) Description 04/02/2023 Orders Only [facility] CHC MED & PEDS [address] [place], [place] [phone] Lilian Roberto LPN Social History Tobacco Use [...] on filedocumented in this encounter Care Teams Peanut Separator Relationship Specialty Start Date End Date Jovany Peng MD [address] [place] [address] PCP - General Internal Medicine 08/31/13 documented as of this encounter
--- OUTSIDE RECORDS SUMMARY | 2025-06-25 15:40 | XMS_ITS | Encounter Summary ---
Author Organization [employer] Address [address] [facility] 7t [place] [address] Care Team Providers Care Master Electrician Name Role Phone Jovany Peng MD Primary Care Provider [phone]- [phone] Encounter Details Date Type Department Care Team ([facility] st Contact Info) Description 02/19/2025 Orders Only [facility] CHC MED & PEDS [address] [place] [address] Jovany Peng MD [address] [place] [address] Atrial fibrillation, unspecified type (CMS/HCC) Social History [...] (HCC) documented in this encounter Care Teams Master Electrician Relationship Specialty Start Date End Date Jovany Peng MD [address] [place] [address] PCP - General Internal Medicine 08/31/13 documented as of this encounter
--- OUTSIDE RECORDS SUMMARY | 2025-06-25 15:40 | XMS_ITS | Encounter Summary ---
Author Organization [employer] Address [address] [facility] 7t [place] [address] Care Team Providers Care Boot And Saddle Repair Person Name Role Phone Jovany Peng MD Primary Care Provider [phone] Encounter Details Date Type Department Care Team (Late st Contact Info) Description 06/25/2025 Orders Only GENERIC EXTERNAL DATA [...] COAG CLINIC Routine 06/25/2025 1:12 PM EDT documented in this encounter Results * (ABNORMAL) PROTHROMBIN TIME WHOLE BLD POC (06/25/2025 1:12 PM EDT) Protime 27.8(H) 11.1 - 13.5 sec [facility] 06/25/2025 1:12 PM EDT 06/25/2025 1:14 PM EDT us Generic External Data Provider LAB BLOOD ORDERAB LES Final Result Performing Organization Address [facility]/ZIP Co de Phone Number [facility] [address] [place] [phone] * (ABNORMAL) ~PT, ~INR - ANTI COAG CLINIC (06/25/2025 1:12 PM EDT) Prothrombin Time INR 2.3(H) 0.9 - 1.1 [facility] Comment:METER #: [id number] TERNATIONAL NORMALIZED RATIO (INR) REFERENCE RANGES Reference [...] 1:12 PM EDT 06/25/2025 1:14 PM EDT Generic External Data Provider LAB BLOOD ORDERAB LES Final Result Performing Organization Address [facility] Co de Phone Number [facility] [address] [place] [address] [phone] documented in this encounter Visit Diagnoses Not on filedocumented in this encounter Care Teams Boot And Saddle Repair Person Relationship Specialty Start Date End Date Jovany Peng MD [address] [place] [phone] PCP - General Internal Medicine 08/31/13 documented as of this encounter
--- OUTSIDE RECORDS SUMMARY | 2025-06-25 15:40 | XMS_ITS | Encounter Summary ---
Author Organization [employer] Address [address] [facility] 7t [place] [address] Care Team Providers Care Shoe Dresser Name Role Phone Jovany Peng MD Primary Care Provider [phone]- [phone] Reason for Visit * Reason Onset Date Comments Medication Question 01/14/2025 Encounter Details Date Type Department Care Team (Late st Contact Info) Description 01/14/2025 Telephone [facility] MEDICINE [address] [place] [address] Jovany Peng MD [address] [place], [place] [phone] Medication Question Social History Tobacco Use Types [...] on filedocumented in this encounter Care Teams Shoe Dresser Relationship Specialty Start Date End Date Jovany Peng MD [address] [place] [phone] PCP - General Internal Medicine 08/31/13 documented as of this encounter
--- OUTSIDE RECORDS SUMMARY | 2025-06-25 15:40 | XMS_ITS | Encounter Summary ---
Author Organization [employer] Address [address] [facility] 7t [place] [address] Care Team Providers Care Supervisor Machine Setter Name Role Phone Jovany Peng MD Primary Care Provider [phone]- [phone] Reason for Visit * Reason Onset Date Comments FYI 05/30/2023 Encounter Details Date Type Department Care Team ([facility] st Contact Info) Description 05/30/[address] [facility] CHC MED & PEDS [address] [place] [address] Jovany Peng MD [address] [place] [address] FYI Social History Tobacco Use Types Packs/Day [...] AM EDT Tc from daughter advising PCP, resident physician Dr. Valentino upped the dosage of dilTIAZem XR (Dilacor XR) 120 MG 24 hr capsule to Dilt-XR 240 MG 24 hr capsule. States she does not want pharmacy to be confused. documented in this encounter Plan of Treatment Not on file documented as of this encounter Visit Diagnoses Not on filedocumented in this encounter Care Teams Supervisor Machine Setter Relationship Specialty Start Date End Date Jovany Peng MD [address] [place] [address] PCP - General Internal Medicine 08/31/13 documented as of this encounter
== END 2025-06-25 13:20 | disposition home or self-care (01) ==
LOC: HO.ACS 13:03
PROVIDERS: PCP Internal Medicine; Visit Provider Internal Medicine Medical Oncology
DX: Z79.01 Long term (current) use of anticoagulants (principal)

== ENCOUNTER → 2025-06-25 13:03 | Outpatient (BNVA) | payer MEDICARE, MEDICAID, SELFPAY | PROVIDERS: PCP Internal Medicine; Visit Provider Internal Medicine Medical Oncology | DX: I48.0 Paroxysmal atrial fibrillation (principal); Z51.81 Encounter for therapeutic drug level monitoring; Z79.01 Long term (current) use of anticoagulants | CPT/HCPCS: 85610; 99211 ==

== ENCOUNTER 2025-07-23 13:00 | Outpatient (AMB) | payer MEDICARE, MEDICAID, SELFPAY ==
[2025-07-23 13:07] LABS: Prothrombin Time Whole Bld POC 27.7 sec (11.1-13.5); ~PT, ~INR - Anti Coag Clinic 2.3 (0.9-1.1)
--- NOTE | 2025-07-23 13:08 | MHC.OFFVISCO ---
Intake Intake Visit Reasons: Anticoagulation Allergies No Known Allergies (No Known Allergies*) Allergy (Verified 07/23/25 13:02) Medication List - Last Reconciled 07/23/25 by Tomasa Sadler, DEEPA diltiazem HCl ER (DILT-XR) 240 mg PO DAILY lisinopril 2.5 mg PO DAILY spironolactone 12.5 mg PO DAILY warfarin 2.5 mg See Protocol PO DAILY Nursing Note INR: 2.3 in therapeutic range of 2-3 Medications and supplements reviewed No changes in health, diet, medications, or supplements, Denies any signs and symptoms of bleeding or bruising or clotting. Bleeding, bruising, clotting discussed Nutritional guidance given Dose: 7.5mg X 4 days and 10mg X 3 days F/U INR: 4 weeks Patient verbalizes understanding of instructions given Anti-Coag Initial Assessment Social Hx Patient Tobacco Use Status: Former Tobacco user Tobacco use type: Cigarette alcohol intake: current Alcohol intake frequency: does not drink Coding Level of Care Code Est Patient Level 1 Diagnoses Current use of anticoagulant therapy Z79.01 Assessment & Plan Assessment & Plan (1) Current use of anticoagulant therapy: Code(s): Z79.01 - detention (current) use of anticoagulants Category: Medical
--- OUTSIDE RECORDS SUMMARY | 2025-07-23 18:59 | XMS_ITS | Encounter Summary ---
Author Organization [employer] Address 75 [facility] 7t [place] [address] Care Team Providers Care Steward/Stewardess Club Car Name Role Phone Jovany Peng MD Primary Care Provider +1- [phone] Encounter Details Date Type Department Care Team (Late st Contact Info) Description 05/31/2025 Orders Only [facility] [address] [place] [address] Provider, MD Mk Social History Tobacco Use [...] on filedocumented in this encounter Care Teams Steward/Stewardess Club Car Relationship Specialty Start Date End Date Jovany Peng MD [address] [facility] [place] [address] PCP - General Internal Medicine 08/31/13 documented as of this encounter
--- OUTSIDE RECORDS SUMMARY | 2025-07-23 18:59 | XMS_ITS | Encounter Summary ---
Author Organization [employer] Address 75 [facility] 7t [place] [address] Care Team Providers Care Weighing Station Operator Name Role Phone Jovany Peng MD Primary Care Provider +1- [phone] Reason for Visit * Reason Onset Date Comments Referral 06/26/2023 Encounter Details Date Type Department Care Team ([facility] st Contact Info) Description 06/26/2023 Telephone [facility] CHC MED & PEDS [address] [place] [address] Jovany Peng MD [address] [place] [address] Referral Social History Tobacco Use Types Packs/Day [...] of preference. Dr. Eugene Zamarripa MD [address] [place] [address] documented in this encounter Plan of Treatment Not on file documented as of this encounter Visit Diagnoses Not on filedocumented in this encounter Care Teams Weighing Station Operator Relationship Specialty Start Date End Date Jovany Peng MD [address] [place] [address] PCP - General Internal Medicine 08/31/13 documented as of this encounter
--- OUTSIDE RECORDS SUMMARY | 2025-07-23 18:59 | XMS_ITS | Encounter Summary ---
Author Organization [employer] Address 75 [facility] 7t [place] [address] Care Team Providers Care Die Casting Machine Setter Name Role Phone Jovany Peng MD Primary Care Provider +1 [phone] Encounter Details Date Type Department Care Team (Late st Contact Info) Description 07/23/2025 Orders Only GENERIC EXTERNAL DATA DEPARTMENT Provider, [...] Comments PROTHROMBIN TIME WHOLE BLD POC Routine 07/23/2025 1:05 PM EST ~PT, ~INR - ANTI COAG CLINIC Routine 07/23/2025 1:05 PM EST documented in this encounter Results * (ABNORMAL) PROTHROMBIN TIME WHOLE BLD POC (07/23/2025 1:05 PM EST) Protime 27.7(H) 11.1 - 13.5 sec [facility] 07/23/2025 1:05 PM EST 07/23/2025 1:07 PM EST us Generic External Data Provider LAB BLOOD ORDERAB LES Final Result Performing Organization Address [facility] Co de Phone Number [facility] [address] [place] [address] [phone] * (ABNORMAL) ~PT, ~INR - ANTI COAG CLINIC (07/23/2025 1:05 PM EST) Prothrombin Time INR 2.3(H) 0.9 - 1.1 [facility] Comment:METER #: [id number] TERNATIONAL NORMALIZED RATIO (INR) REFERENCE RANGES Reference RangeFor patients not on anticoagulant therapy: 0.9 - 1.1INR ranges for oral anticoagulanttherapy:For prevention and treatment of venous thrombosis and pulmonary embolism: 2.0 - 3.0For acute myocardial infarction with aspirin therapy: 2.0 - 3.0For acute myocardial infarction without aspirin therapy: 3.0 - 4.0For patients with mechanical prosthetic heart valves: 2.5 - 3.5 07/23/2025 1:05 PM EST 07/23/2025 1:07 PM EST Kasumi-sou External Data Provider LAB BLOOD ORDERAB LES Final Result Performing Organization Address [facility] Co de Phone Number [facility] [address] [place] [address] [phone] documented in this encounter Visit Diagnoses Not on filedocumented in this encounter Care Teams Die Casting Machine Setter Relationship Specialty Start Date End Date Jovany Peng MD [address] [place] [address] PCP - General Internal Medicine 08/31/13 documented as of this encounter
--- OUTSIDE RECORDS SUMMARY | 2025-07-23 18:59 | XMS_ITS | Encounter Summary ---
Author Organization [employer] Address 75 [facility] 7t [place] [address] Care Team Providers Care Pigment Mixer Name Role Phone Jovany Peng MD Primary Care Provider +1- [phone] Encounter Details Date Type Department Care Team ([facility] st Contact Info) Description 02/19/2025 Orders Only [facility] CHC MED & PEDS [address] [place] [address] Jovany Peng MD [address] [place] [address] Atrial fibrillation, unspecified type (CMS/HCC) Social History [...] (HCC) documented in this encounter Care Teams Pigment Mixer Relationship Specialty Start Date End Date Jovany Peng MD [address] [place] [address] PCP - General Internal Medicine 08/31/13 documented as of this encounter
--- OUTSIDE RECORDS SUMMARY | 2025-07-23 19:00 | XMS_ITS | Clinical Summary ---
Author Organization [address] [place] [address] Address [address] [place] [address] Phone Care Team Providers Care Restaurant Assistant Manager Name Role Phone Jovany Peng MD Primary Care Provider +1 -[phone] Allergies No known active allergies Medications DILT-XR 240 mg 24 hr capsule Take 1 capsule (240 mg total) by mouth 1 (one) time each day. 90 capsule 5 Active warfarin (COUMADIN) 2.5 mg tablet Take by mouth 1 (one) time each day with dinner. Managed by [facility] Coumadin clinic Active [id number] a-fish oil (Fish OiL) 350-600 mg capsule Take by mouth. Active spironolactone (ALDACTONE) 25 mg tablet Take 0.5 tablets (12.5 mg total) by mouth 1 (one) time each day. 45 tablet 3 5 Active spironolactone (ALDACTONE) 25 mg tablet TAKE 1/2 TABLET BY MOUTH DAILY 45 tablet 1 5 07/22/20 25 Discontinu ed(Reorder ) Active Problems Problem Noted Date Diagnosed Date [...] CMS/HCC V28 ) 01/26/2022 Persistent atrial fibrillation (CMS/HCC V24, CMS /HCC V28) 07/30/2013 Overview (05/18/2025): Longstanding persistent atrial [...] Description 05/25/2025 7:40 AM EDT Office Visit [facility] - [address] [place] [phone] Kailee Luna NP Persistent atrial fibrillation (CMS/HCC V24, CMS/HCC V28) (Primary Dx) 04/27/2025 Telephone [facility] [address] [place] [phone] Haroon Brito MD from Last 3 Months [...] CBC auto differential (05/25/2025 8:19 AM EDT) [facility] WBC 8.2 4.8 - 10.8 K/mcL LAB HEMETOLOGY METHOD 05/25/2025 10:28 AM EDT [facility] RBC 5.20 4.50 - 5.50 M/mcL LAB HEMETOLOGY METHOD 05/25/2025 10:28 AM EDT [facility] Hemoglobin 15.8 13.5 - 17.5 g/dL LAB HEMETOLOGY METHOD 05/25/2025 10:28 AM T [facility] Hematocrit 45.9 42.0 - 54.0 % LAB [facility]OLOG[facility] MCV 88.3 79.0 - 98.0 FL LAB HEMETOLOGY METHOD 05/25/2025 10:28 AM [facility] MCH 30.4 27.0 - 32.0 pcg LAB HEMETOLOGY METHOD 05/25/2025 10:28 AM [facility] MCHC 34.4 32.0 - 37.0 g/dL LAB HEMETOLOGY METHOD 05/25/2025 10:28 AM [facility] RDW 12.7 11.0 - 15.0 % LAB HEMETOLOGY METHOD 05/25/2025 10:28 AM [facility] Platelets 224 130 - 400 K/mcL LAB HEMETOLOGY METHOD 05/25/2025 10:28 AM [facility] MPV 11.1(H) 7.0 - 11.0 FL LAB HEMETOLOGY METHOD 05/25/2025 10:28 AM [facility] NRBC 0.0 <1.0 % LAB HEMETOLOGY METHOD 05/25/2025 10:28 AM [facility] NRBC Absolute 0.00 <0.10 K/mcL LAB HEMETOLOGY METHOD 05/25/2025 10:28 AM [facility] Neutrophils Relative 60.5 % LAB HEMETOLOGY METHOD 05/25/2025 10:28 AM [facility] Lymphocytes Relative 25.2 % LAB HEMETOLOGY METHOD 05/25/2025 10:28 AM [facility] Monocytes Relative 9.3 % LAB HEMETOLOGY METHOD 05/25/2025 10:28 AM [facility] Eosinophils Relative 4.6 % LAB HEMETOLOGY METHOD 05/25/2025 10:28 AM [facility] Basophils Relative 0.2 % LAB HEMETOLOGY METHOD 05/25/2025 10:28 AM [facility] Immature Granulocytes Relative 0.2 % LAB HEMETOLOGY METHOD 05/25/2025 10:28 AM EDT [facility] Neutrophils Absolute 4.95 1.50 - 7.00 K/mcL LAB HEMETOLOGY METHOD 05/25/2025 10:28 AM EDT [facility] Lymphocytes Absolute 2.06 1.00 - 5.00 K/mcL LAB HEMETOLOGY METHOD 05/25/2025 10:28 AM EDT [facility] Monocytes Absolute 0.76 0.20 - 1.00 K/mcL LAB HEMETOLOGY METHOD 05/25/2025 10:28 AM EDT [facility] Eosinophils Absolute 0.38 0.00 - 0.50 K/mcL LAB HEMETOLOGY METHOD [facility] Basophils Absolute 0.02 0.00 - 0.20 K/mcL LAB HEMETOLOGY METHOD 05/25/2025 10:28 AM EDT [facility] Immature Granulocytes Absolute 0.02 0.00 - 0.03 K/mcL LAB HEMETOLOGY METHOD 05/25/2025 10:28 AM [facility] Blood Venous blood specimen / Unknown Venipuncture / Unknown 05/25/2025 8:19 AM EDT 05/25/2025 8:19 AM EDT us Kailee Luna COMMAND AND CONTROL OFFICER LAB BLOOD ORDERABLES Final R esult [facility] [address] [place] [address], * (ABNORMAL) Comprehensive metabolic panel (05/25/2025 8:19 AM EDT) Sodium 138 133 - 145 mmol/L LAB CHEMISTRY METHOD 05/25/2025 11:17 AM EDT [facility] Potassium 5.1 3.5 - 5.5 [...] 11:17 AM [facility] AST (SGOT) 31 10 - 42 unit/L LAB CHEMISTRY METHOD 05/25/2025 11:17 AM [facility] ALT (SGPT) 39 10 - 60 unit/L LAB CHEMISTRY METHOD 05/25/2025 11:17 AM [facility] Alkaline Phosphatase 54 42 - 121 unit/L LAB CHEMISTRY METHOD 05/25/2025 11:17 AM [facility] Total Protein 7.7 6.0 - 8.0 g/dL LAB CHEMISTRY METHOD 05/25/2025 11:17 AM EDT [facility] Albumin 4.2 3.2 - 5.0 g/dL LAB CHEMISTRY METHOD 05/25/2025 11:17 AM EDT [facility] Total Bilirubin 0.7 0.0 - 1.4 mg/dL LAB CHEMISTRY METHOD 05/25/2025 11:17 AM EDT [facility] Blood Venous blood specimen / Unknown Venipuncture / Unknown 05/25/2025 8:19 AM EDT 05/25/2025 8:19 AM EDT Kailee Luna NP LAB BLOOD ORDERABLES Final R esult Performing Organization Address [facility] Co de Phone Number [facility] [address] [place] [address], [place] [phone] * ECG 12 lead (05/25/2025 8:18 AM EDT) Ventricular Rate ECG 75 BPM GEMUSE Atrial Rate 80 BPM GEMUSE QRS Duration 94 ms GEMUSE Q-T Interval 408 ms GEMUSE QTc 455 ms GEMUSE R Conway 41 degrees GEMUSE T Conway 35 degrees GEMUSE ECG Interpretation Atrial fibrillation Low voltage QRS Abnormal ECG No previous ECGs available Confirmed by Sharita BRITO JOHN ([id number]) on 05/31/2025 8:30:27 AM GEMUSE 05/25/2025 7:54 AM EDT 05/31/2025 8:30 AM EDT Kailee Luna COMMAND AND CONTROL OFFICER ECG ORDERABLES Edited Resul t - Final GEMUSE * External clinical lab (04/30/2025 2:26 PM EDT) Historical Provider LAB BLOOD ORDERABLES Nikole l Result from Last 3 Months Insurance MEDICARE MEDICAID - [place] Care Teams Restaurant Assistant Manager Relationship Specialty Start Date End Date Jovany Peng MD [address] [place] [address] PCP - General Internal Medicine 02/09/22
--- OUTSIDE RECORDS SUMMARY | 2025-07-23 19:00 | XMS_ITS | Encounter Summary ---
Author Organization [employer] Address 75 [facility] 7t [place] [address] Care Team Providers Care Outboard Motor Mechanic Name Role Phone Jovany Peng MD Primary Care Provider +1- [phone] Encounter Details Date Type Department Care Team ([facility] st Contact Info) Description 04/02/2023 Orders Only [facility] MED & PEDS [address] [place], [place] [phone] Lilian Roberto LPN Social History Tobacco Use [...] on filedocumented in this encounter Care Teams Outboard Motor Mechanic Relationship Specialty Start Date End Date Jovany Peng MD [address] [place] [address] PCP - General Internal Medicine 08/31/13 documented as of this encounter
--- OUTSIDE RECORDS SUMMARY | 2025-07-23 19:00 | XMS_ITS | Encounter Summary ---
Author Organization [employer] Address 75 [facility] 7t [place] [address] Care Team Providers Care Taper Machine Name Role Phone Jovany Peng MD Primary Care Provider +1- [phone] Encounter Details Date Type Department Care Team (Late st Contact Info) Description 07/11/2023 Abstract [facility] [address] [place] [address] Jovany Peng MD [address] [place], [place] [phone] Social History Tobacco Use Types Packs/Day Years [...] on filedocumented in this encounter Care Teams Taper Machine Relationship Specialty Start Date End Date Jovany Peng MD [address] [place] [address] PCP - General Internal Medicine 08/31/13 documented as of this encounter
--- OUTSIDE RECORDS SUMMARY | 2025-07-23 19:00 | XMS_ITS | Encounter Summary ---
Author Organization [employer] Address 75 [facility] 7t [place] [address] Care Team Providers Care Cnc Supervisor Name Role Phone Jovany Peng MD Primary Care Provider +1- [phone] Reason for Visit * Reason Onset Date Comments FYI 05/30/2023 Encounter Details Date Type Department Care Team ([facility] st Contact Info) Description 05/30/2023 Telephone [facility] CHC MED & PEDS [address] [place] [address] Jovany Peng MD [address] [place] [address] FYI Social History Tobacco Use Types Packs/Day [...] AM EDT Tc from daughter advising PCP, lens blank gauger Dr. Valentino upped the dosage of dilTIAZem XR (Dilacor XR) 120 MG 24 hr capsule to Dilt-XR 240 MG 24 hr capsule. States she does not want pharmacy to be confused. documented in this encounter Plan of Treatment Not on file documented as of this encounter Visit Diagnoses Not on filedocumented in this encounter Care Teams Cnc Supervisor Relationship Specialty Start Date End Date Jovany Peng MD [address] [place] [address] PCP - General Internal Medicine 08/31/13 documented as of this encounter
--- OUTSIDE RECORDS SUMMARY | 2025-07-23 19:01 | XMS_ITS | Clinical Summary ---
Author Organization [employer] Address 75 [facility] 7t [place] [address] Care Team Providers Care Environmental Services Tech Name Role Phone Jovany Peng MD Primary Care Provider +1 [phone] Medications Dilt-XR 240 MG 24 hr capsule [...] Encounters Date Type Department Care Team Description 07/23/2025 Orders Only GENERIC EXTERNAL DATA DEPARTMENT Provider, Generic External Data 06/25/2025 Orders Only GENERIC EXTERNAL DATA DEPARTMENT Provider, Generic External Data 05/31/2025 Orders Only [facility] Information Management [address] [place] [address] Provider, MD Mk 05/28/2025 Orders Only GENERIC [...] COAG CLINIC Routine 07/23/2025 1:05 PM EST PROTHROMBIN TIME WHOLE BLD POC Routine 06/25/2025 [...] COAG CLINIC Routine 04/30/2025 1:00 PM EDT LIPID PANEL, STANDARD Routine 11/15/2021 8:31 AM EST HM COLONOSCOPY Routine 06/30/2019 from Last 3 Months or Most Recently Relevant to Health Maintenance Results * (ABNORMAL) PROTHROMBIN TIME WHOLE BLD POC (07/23/2025 1:05 PM EST) Only the most recent of4 resultswithin the time period is included. Protime 27.7(H) 11.1 - 13.5 sec [facility] 07/23/2025 1:05 PM EST 07/23/2025 1:07 PM EST us Generic External Data Provider LAB BLOOD ORDERAB LES Final Result Performing Organization Address City/State/[facility] Co de Phone Number [facility] [address] [place] [phone] * (ABNORMAL) ~PT, ~INR - ANTI COAG CLINIC (07/23/2025 1:05 PM EST) Only the most recent of4 resultswithin the time period is included. Prothrombin Time INR 2.3(H) 0.9 - 1.1 [facility] Comment:METER #: [id number] TERNATIONAL NORMALIZED RATIO (INR) REFERENCE RANGES Reference [...] Provider LAB BLOOD ORDERAB LES Final Result [facility] [address] [place] [phone] * ECG 12 lead (05/25/2025 1:50 PM EDT) Historical Provider ECG ORDERABLES Final Res ult * LIPID PANEL, STANDARD (11/15/2021 8:31 AM EST) Chol/HDLC Ratio 3.4 <5.0 (calc) [facility] Cholesterol, Total 158 <200 mg/dL [facility] HDL Cholesterol 46 > OR = 40 mg/dL [facility] LDL Cholesterol 95 mg/dL (calc) [facility] Comment: Reference range: <100 Desirable range <100 mg/dL for primary prevention; <70 mg/dL for patients with CHD or diabetic patients with > or = 2 CHD risk factors. LDL-C is now calculated using the Dallin-Georgiana calculation, which is a validated novel method providing better accuracy than the Friedewald equation in the estimation of LDL-C. Dallin HIGGINBOTHAM et al. CHARITO. 2013;310(19): 9224-8706 (http://education.[employer].com/faq/JDO444) Non-HDL Cholesterol 112 <130 mg/dL (calc) [facility] Comment: For patients with diabetes plus 1 major ASCVD risk factor, treating to a non-HDL-C goal of <100 mg/dL (LDL-C of <70 mg/dL) is considered a therapeutic option. Triglycerides 83 <150 mg/dL [facility] 11/15/2021 8:31 AM EST Jovany Peng MD LAB BLOOD ORDERABLES Final Result [facility] [address] [place] [phone], * Colonoscopy (06/30/2019) Colonoscopy Normal Normal Narrative Staci Gustafson - 06/30/2019 Recommended 5 year follow up Historical Provider HEALTH MAINTENANCE Final Result from Last 3 Months or Most Recently Relevant to Health Maintenance Insurance [facility] STANDARD MEDICARE Care Teams Environmental Services Tech Relationship Specialty Start Date End Date Jovany Peng MD [address] [place] [address] Yareli SASHA [address] PCP - General Internal Medicine 08/31/13
--- OUTSIDE RECORDS SUMMARY | 2025-07-23 19:01 | XMS_ITS | Encounter Summary ---
Author Organization [employer] Address 75 [facility] 7t [place] [address] Care Team Providers Care Hand Coremaker Name Role Phone Jovany Peng MD Primary Care Provider +1- [phone] Encounter Details Date Type Department Care Team ([facility] st Contact Info) Description 01/14/2025 Orders Only [facility] CHC MED & PEDS [address] [place] [address] Jovany Peng MD [address] [place] [address] Atrial fibrillation, unspecified type (CMS/HCC) Social History [...] (HCC) documented in this encounter Care Teams Hand Coremaker Relationship Specialty Start Date End Date Jovany Peng MD [address] [place] [address] PCP - General Internal Medicine 08/31/13 documented as of this encounter
--- OUTSIDE RECORDS SUMMARY | 2025-07-23 19:01 | XMS_ITS | Encounter Summary ---
Author Organization [employer] Address 75 [facility] 7t [place] [address] Care Team Providers Care Network Operations Analyst Name Role Phone Jovany Peng MD Primary Care Provider +1- [phone] Reason for Visit * Reason Onset Date Comments Medication Question 01/14/2025 Encounter Details Date Type Department Care Team (Late st Contact Info) Description 01/14/2025 Telephone [facility] [address] [place] [address] Jovany Peng MD [address] [place], [place] [phone] Medication Question Social History Tobacco Use Types [...] on filedocumented in this encounter Care Teams Network Operations Analyst Relationship Specialty Start Date End Date Jovany Peng MD [address] [place] [address] PCP - General Internal Medicine 08/31/13 documented as of this encounter
== END 2025-07-23 13:11 | disposition home or self-care (01) ==
LOC: HO.ACS 13:00
PROVIDERS: PCP Internal Medicine; Visit Provider Internal Medicine Medical Oncology
DX: Z79.01 Long term (current) use of anticoagulants (principal)

== ENCOUNTER → 2025-07-23 13:00 | Outpatient (BNVA) | payer MEDICARE, MEDICAID, SELFPAY | PROVIDERS: PCP Internal Medicine; Visit Provider Internal Medicine Medical Oncology | DX: I48.0 Paroxysmal atrial fibrillation (principal); Z51.81 Encounter for therapeutic drug level monitoring; Z79.01 Long term (current) use of anticoagulants | CPT/HCPCS: 85610; 99211 ==

== ENCOUNTER 2025-08-20 13:03 | Outpatient (AMB) | payer MEDICARE, MEDICAID, SELFPAY ==
[2025-08-20 13:11] LABS: Prothrombin Time Whole Bld POC 31.7 sec (11.1-13.5); ~PT, ~INR - Anti Coag Clinic 2.6 (0.9-1.1)
--- NOTE | 2025-08-20 13:12 | MHC.OFFVISCO ---
Intake Intake Visit Reasons: Anticoagulation Allergies No Known Allergies (No Known Allergies*) Allergy (Verified 08/20/25 13:06) Medication List - Last Reconciled 08/20/25 by Tomasa Sadler RN diltiazem HCl ER (DILT-XR) 240 mg PO DAILY lisinopril 2.5 mg PO DAILY spironolactone 12.5 mg PO DAILY warfarin 2.5 mg See Protocol PO DAILY Nursing Note INR: 2.6 in therapeutic range of 2-3 Medications and supplements reviewed No changes in health, diet, medications, or supplements, Denies any signs and symptoms of bleeding or bruising or clotting. Bleeding, bruising, clotting discussed Nutritional guidance given Dose: 7.5mg X 4 days and 10mg X 3 days (M/W/F) F/U INR: 4 weeks Patient verbalizes understanding of instructions given Anti-Coag Initial Assessment Social Hx Patient Tobacco Use Status: Former Tobacco user Tobacco use type: Cigarette alcohol intake: current Alcohol intake frequency: does not drink Coding Level of Care Code Est Patient Level 1 Diagnoses Current use of anticoagulant therapy Z79.01 Assessment & Plan Assessment & Plan (1) Current use of anticoagulant therapy: Code(s): Z79.01 - long term care administrator (current) use of anticoagulants Category: Medical
--- OUTSIDE RECORDS SUMMARY | 2025-08-20 18:40 | XMS_ITS | Encounter Summary ---
Author Organization [employer] Address 75 [facility] 7t [place] [address] Care Team Providers Care Pig Machine Supervisor Name Role Phone Jovany Peng MD Primary Care Provider +1- [phone] Encounter Details Date Type Department Care Team (Late st Contact Info) Description 05/31/2025 Orders Only [facility] [address] [place] [address] Provider, MD Mk Social History Tobacco Use [...] on filedocumented in this encounter Care Teams Pig Machine Supervisor Relationship Specialty Start Date End Date Jovany Peng MD [address] [facility] [place] [address] PCP - General Internal Medicine 08/31/13 documented as of this encounter
--- OUTSIDE RECORDS SUMMARY | 2025-08-20 18:40 | XMS_ITS | Clinical Summary ---
Author Organization [address] [place] [address] Address [address] [place] [address] Phone Care Team Providers Care Staff Readiness Officer Name Role Phone Jovany Peng MD Primary Care Provider [phone] Allergies No known active allergies Medications warfarin (COUMADIN) 2.5 mg tablet Take by mouth 1 (one) time each day with dinner. Managed by [facility] Active [id number]-[id number] pa-fish oil (Fish OiL) 350-600 mg capsule Take by mouth. Active spironolactone (ALDACTONE) 25 mg tablet Take 0.5 tablets (12.5 mg total) by mouth 1 (one) time each day. 45 tablet 3 07/22/20 25 Active dilTIAZem XR (DILACOR XR) 240 mg 24 hr capsule Take 1 capsule (240 mg total) by mouth 1 (one) time each day. 90 capsule 2 07/27/20 25 Active spironolactone (ALDACTONE) 25 mg tablet TAKE 1/2 TABLET BY MOUTH DAILY 45 tablet 1 01/12/20 25 025 Discontinued(Re order) DILT-XR 240 mg 24 hr capsule Take 1 capsule (240 mg total) by mouth 1 (one) time each day. 90 capsule 04/27/20 25 025 Discontinued Active Problems Problem Noted Date Diagnosed Date [...] right ventricle of heart 01/26/2022 Pulmonary hypertension 01/26/2022 Persistent atrial fibrillation 07/30/2013 Overview (05/18/2025): Longstanding persistent atrial fibrillation [...] Description 05/25/2025 7:40 AM EDT Office Visit [facility] [address] [facility] [address] [place] [address] Kailee Luna, EVA Persistent atrial fibrillation (CMS/HCC V24, CMS/HCC V28) (Primary Dx) from Last 3 Months Medical History Medical [...] on file Sexual Orientation Not on file Last Filed Vital Signs Vital Sign Reading [...] Persistent atrial fibrillation (CMS/HCC V24, CMS/HCC V28) from Last 3 Months Results * (ABNORMAL) CBC auto differential (05/25/2025 8:19 AM EDT) WBC 8.2 4.8 - 10.8 K/mcL LAB HEMETOLOGY METHOD 05/25/2025 10:28 AM [facility] RBC 5.20 4.50 - 5.50 M/mcL LAB HEMETOLOGY METHOD 05/25/2025 10:28 AM [facility] Hemoglobin 15.8 13.5 - 17.5 g/dL LAB HEMETOLOGY METHOD 05/25/2025 10:28 AM [facility] Hematocrit 45.9 42.0 - 54.0 % LAB HEMETOLOGY METHOD 05/25/2025 10:28 AM [facility] MCV 88.3 79.0 - 98.0 FL LAB HEMETOLOGY METHOD 05/25/2025 10:28 AM [facility] MCH 30.4 27.0 - 32.0 pcg LAB HEMETOLOGY METHOD 05/25/2025 10:28 AM [facility] MCHC 34.4 32.0 - 37.0 g/dL LAB HEMETOLOGY METHOD 05/25/2025 10:28 AM [facility] RDW 12.7 11.0 - 15.0 % LAB HEMETOLOGY METHOD 05/25/2025 10:28 AM [facility] Platelets 224 130 - 400 K/mcL LAB HEMETOLOGY METHOD 05/25/2025 10:28 AM [facility] MPV 11.1(H) 7.0 - 11.0 FL LAB HEMETOLOGY METHOD 05/25/2025 10:28 AM [facility] NRBC 0.0 <1.0 % LAB HEMETOLOGY METHOD 05/25/2025 10:28 AM [facility] NRBC Absolute 0.00 <0.10 K/mcL LAB HEMETOLOGY METHOD 05/25/2025 10:28 AM [facility] Neutrophils Relative 60.5 % LAB HEMETOLOGY METHOD 05/25/2025 10:28 AM [facility] Lymphocytes Relative 25.2 % LAB HEMETOLOGY METHOD 05/25/2025 10:28 AM [facility] Monocytes Relative 9.3 % LAB HEMETOLOGY METHOD 05/25/2025 10:28 AM [facility] Eosinophils Relative 4.6 % LAB HEMETOLOGY METHOD 05/25/2025 10:28 AM [facility] Basophils Relative 0.2 % LAB HEMETOLOGY METHOD 05/25/2025 10:28 AM [facility] Immature Granulocytes Relative 0.2 % LAB HEMETOLOGY METHOD 05/25/2025 10:28 AM [facility] Neutrophils Absolute 4.95 1.50 - 7.00 K/mcL LAB HEMETOLOGY METHOD 05/25/2025 10:28 AM EDT [facility] Lymphocytes Absolute 2.06 1.00 - 5.00 K/[facility] LAB HEMETOLOGY METHOD 05/25/2025 10:28 AM EDT [facility] Monocytes Absolute 0.76 0.20 - 1.00 K/[facility] LAB HEMETOLOGY METHOD 05/25/2025 10:28 AM EDT [facility] Eosinophils Absolute 0.38 0.00 - 0.50 K/[facility] LAB HEMETOLOGY METHOD 05/25/2025 10:28 AM EDT [facility] Basophils Absolute 0.02 0.00 - 0.20 K/[facility] LAB [facility]ETOLOGY [facility] Immature Granulocytes Absolute 0.02 0.00 - 0.03 K/[facility] LAB HEMETOLOGY METHOD 05/25/2025 10:28 AM EDT [facility] Blood Venous blood specimen / Unknown Venipuncture / Unknown 05/25/2025 8:19 AM EDT 05/25/2025 8:19 AM EDT Kailee Luna AUDIO DIRECTOR LAB BLOOD ORDERABLES Final R esult [facility] [address] [place] [address], * (ABNORMAL) Comprehensive metabolic panel (05/25/2025 8:19 AM EDT) Sodium 138 133 - 145 mmol/L LAB CHEMISTRY METHOD 05/25/2025 11:17 AM [facility] Potassium 5.1 3.5 - 5.5 mmol/L LAB CHEMISTRY METHOD 05/25/2025 11:17 AM [facility] Chloride 107 96 - 110 mmol/L LAB CHEMISTRY METHOD 05/25/2025 11:17 AM [facility] CO2 25 21 - 32 mmol/L LAB CHEMISTRY METHOD 05/25/2025 11:17 AM [facility] Anion Gap 6 3 - 11 LAB CHEMISTRY METHOD 05/25/2025 11:17 AM [facility] Glucose 126(H) 70 - 100 mg/dL LAB CHEMISTRY METHOD 05/25/2025 11:17 AM [facility] BUN 22 5 - 25 mg/dL LAB CHEMISTRY METHOD 05/25/2025 11:17 AM [facility] Creatinine 1.14 0.70 - 1.30 mg/dL LAB CHEMISTRY METHOD 05/25/2025 11:17 AM [facility] eGFR 67 >=60 mL/min/1. 73m2 LAB CHEMISTRY METHOD 05/25/2025 11:17 AM [facility] Comment:Calculation based on the Chronic Kidney Disease Epidemiology Collaboration (CKD-EPI) equation refit without adjustment for race. BUN/Creatinine Ratio 19.3 LAB CHEMISTRY METHOD 05/25/2025 11:17 AM [facility] Calcium 9.6 8.5 - 10.5 mg/dL LAB CHEMISTRY METHOD 05/25/2025 11:17 AM [facility] AST (SGOT) 31 10 - 42 unit/L LAB CHEMISTRY METHOD 05/25/2025 11:17 AM [facility] ALT (SGPT) 39 10 - 60 unit/L LAB CHEMISTRY METHOD 05/25/2025 11:17 AM [facility] Alkaline Phosphatase 54 42 - 121 unit/L LAB CHEMISTRY METHOD 05/25/2025 11:17 AM [facility] Total Protein 7.7 6.0 - 8.0 g/dL LAB CHEMISTRY METHOD 05/25/2025 11:17 AM [facility] Albumin 4.2 3.2 - 5.0 g/dL LAB CHEMISTRY METHOD 05/25/2025 11:17 AM EDT [facility] Total Bilirubin 0.7 0.0 - 1.4 mg/dL LAB CHEMISTRY METHOD 05/25/2025 11:17 AM EDT [facility] Blood Venous blood specimen / Unknown Venipuncture / Unknown 05/25/2025 8:19 AM EDT 05/25/2025 8:19 AM EDT Kailee Luna AUDIO DIRECTOR LAB BLOOD ORDERABLES Final R esult Performing Organization Address [facility] Co de Phone Number [facility] [address] [place] [address], * ECG 12 lead (05/25/2025 8:18 AM EDT) Ventricular Rate ECG 75 BPM GEMUSE Atrial Rate 80 BPM GEMUSE QRS Duration 94 ms GEMUSE Q-T Interval 408 ms GEMUSE QTc 455 ms GEMUSE R [place] 41 degrees GEMUSE T [place] 35 degrees GEMUSE ECG Interpretation Atrial fibrillation Low voltage QRS Abnormal ECG No previous ECGs available Confirmed by Sharita HARTLEY JOHN ([id number]) on 05/31/2025 8:30:27 AM GEMUSE 05/25/2025 7:54 AM EDT 05/31/2025 8:30 AM EDT Kailee Luna AUDIO DIRECTOR ECG ORDERABLES Edited Resul t - Final Performing Organization Address City/[facility] Co de Phone Number GEMUSE from Last 3 Months Insurance MEDICARE MEDICAID - [place] Care Teams Staff Readiness Officer Relationship Specialty Start Date End Date Jovany Peng MD [address] [place] [address] PCP - General Internal Medicine 02/09/22
--- OUTSIDE RECORDS SUMMARY | 2025-08-20 18:40 | XMS_ITS | Clinical Summary ---
Author Organization [employer] Address [address] [facility] 7t [place] [address] Care Team Providers Care Salad Bar Clerk Name Role Phone Jovany Peng MD Primary Care Provider [phone] Medications Dilt-XR 240 MG 24 hr capsule [...] Encounters Date Type Department Care Team Description 08/20/2025 Orders Only GENERIC EXTERNAL DATA DEPARTMENT Provider, Generic External Data 07/23/2025 Orders Only GENERIC EXTERNAL DATA DEPARTMENT Provider, Generic External Data 06/25/2025 Orders Only GENERIC EXTERNAL DATA DEPARTMENT Provider, Generic External Data 05/31/2025 Orders Only [employer] Information Management [address] [place] [address] ProviderMk MD 05/28/2025 Orders Only GENERIC EXTERNAL DATA DEPARTMENT [...] Comments PROTHROMBIN TIME WHOLE BLD POC Routine 08/20/2025 1:09 PM EST ~PT, ~INR - ANTI COAG CLINIC Routine 08/20/2025 1:09 PM EST PROTHROMBIN TIME WHOLE BLD POC Routine 07/23/2025 [...] ECG 12-LEAD Routine 05/25/2025 1:50 PM EDT LIPID PANEL, STANDARD Routine 11/15/2021 8:31 AM EST HM COLONOSCOPY Routine 06/30/2019 from Last 3 Months or Most Recently Relevant to Health Maintenance Results * (ABNORMAL) PROTHROMBIN TIME WHOLE BLD POC (08/20/2025 1:09 PM EST) Only the most recent of4 resultswithin the time period is included. Protime 31.7(H) 11.1 - 13.5 sec [facility] 08/20/2025 1:09 PM EST 08/20/2025 1:11 PM EST us Generic External Data Provider LAB BLOOD ORDERAB LES Final Result Performing Organization Address City/State/[facility] Co de Phone Number [facility] [address] [place] [phone] * (ABNORMAL) ~PT, ~INR - ANTI COAG CLINIC (08/20/2025 1:09 PM EST) Only the most recent of4 resultswithin the time period is included. Prothrombin Time INR 2.6(H) 0.9 - 1.1 [facility] Comment:METER #: [id number] TERNATIONAL NORMALIZED RATIO (INR) REFERENCE RANGES Reference RangeFor patients not on anticoagulant therapy: 0.9 - 1.1INR ranges for oral anticoagulanttherapy:For prevention and treatment of venous thrombosis and pulmonary embolism: 2.0 - 3.0For acute myocardial infarction with aspirin therapy: 2.0 - 3.0For acute myocardial infarction without aspirin therapy: 3.0 - 4.0For patients with mechanical prosthetic heart valves: 2.5 - 3.5 08/20/2025 1:09 PM EST 08/20/2025 1:11 PM EST us Generic External Data Provider LAB BLOOD ORDERAB LES Final Result [facility] [address] [place] [phone] * ECG 12 lead (05/25/2025 1:50 PM EDT) Historical Provider ECG ORDERABLES Final Res ult * LIPID PANEL, STANDARD (11/15/2021 8:31 AM EST) Chol/HDLC Ratio 3.4 <5.0 (calc) [facility] Cholesterol, Total 158 <200 mg/dL [facility] HDL Cholesterol 46 > OR = 40 mg/dL [facility] LDL Cholesterol 95 mg/dL (calc) [facility] Comment: Reference range: <100 Desirable range <100 mg/dL for primary prevention; <70 mg/dL for patients with CHD or diabetic patients with > or = 2 CHD risk factors. LDL-C is now calculated using the Dallin-Georgiana calculation, which is a validated novel method providing better accuracy than the Friedewald equation in the estimation of LDL-C. Dallin HIGGINBOTHAM et al. CHARITO. 2013;310(19): 9398-0561 (http://education.Lola Pirindola.Classting/faq/TTU640) Non-HDL Cholesterol 112 <130 mg/dL (calc) [facility] Comment: For patients with diabetes plus 1 major ASCVD risk factor, treating to a non-HDL-C goal of <100 mg/dL (LDL-C of <70 mg/dL) is considered a therapeutic option. Triglycerides 83 <150 mg/dL [facility] 11/15/2021 8:31 AM EST Jovany Peng MD LAB BLOOD ORDERABLES Final Result [facility] [address] [place] [phone], * Colonoscopy (06/30/2019) Colonoscopy Normal Normal Narrative Staci Gustafson - 06/30/2019 Recommended 5 year follow up Historical Provider HEALTH MAINTENANCE Final Result from Last 3 Months or Most Recently Relevant to Health Maintenance Insurance [facility] STANDARD MEDICARE Care Teams Salad Bar Clerk Relationship Specialty Start Date End Date Jovany Peng MD [address] [place] [address] Yareli SASHA [phone] PCP - General Internal Medicine 08/31/13
--- OUTSIDE RECORDS SUMMARY | 2025-08-20 18:40 | XMS_ITS | Encounter Summary ---
Author Organization [employer] Address [address] [facility] 7t [place] [address] Care Team Providers Care Secretarial Stenographer Name Role Phone Jovany Peng MD Primary Care Provider [phone]- [phone] Encounter Details Date Type Department Care Team ([facility] st Contact Info) Description 04/02/2023 Orders Only [facility] [address] [place], [place] [phone] Lilian Roberto LPN Social History Tobacco Use [...] on filedocumented in this encounter Care Teams Secretarial Stenographer Relationship Specialty Start Date End Date Jovany Peng MD [address] [place] [address] PCP - General Internal Medicine 08/31/13 documented as of this encounter
--- OUTSIDE RECORDS SUMMARY | 2025-08-20 18:40 | XMS_ITS | Encounter Summary ---
Author Organization [employer] Address [address] [facility] 7t [place] [address] Care Team Providers Care Inspector Purchased Parts Name Role Phone Jovany Peng MD Primary Care Provider [phone]- [phone] Encounter Details Date Type Department Care Team (Late st Contact Info) Description 07/11/2023 Abstract [facility] MED[facility]INE [address] [place] [address] Jovany Peng MD [address] [place], [place] [phone] Social History Tobacco Use Types Packs/Day Years [...] on filedocumented in this encounter Care Teams Inspector Purchased Parts Relationship Specialty Start Date End Date Jovany Peng MD [address] [place] [address] PCP - General Internal Medicine 08/31/13 documented as of this encounter
--- OUTSIDE RECORDS SUMMARY | 2025-08-20 18:40 | XMS_ITS | Encounter Summary ---
Author Organization [employer] Address [address] [facility] 7t [place] [address] Care Team Providers Care Frame Straightener Name Role Phone Jovany Peng MD Primary Care Provider [phone]- [phone] Encounter Details Date Type Department Care Team ([facility] st Contact Info) Description 02/19/2025 Orders Only [facility] MED [facility] PEDS [address] [place] [address] Jovany Peng MD [address] [place] [address] Atrial fibrillation, unspecified type (CMS/HCC) Social History [...] (HCC) documented in this encounter Care Teams Frame Straightener Relationship Specialty Start Date End Date Jovany Peng MD [address] [place] [address] PCP - General Internal Medicine 08/31/13 documented as of this encounter
--- OUTSIDE RECORDS SUMMARY | 2025-08-20 18:40 | XMS_ITS | Encounter Summary ---
Author Organization [employer] Address [address] [facility] 7t [place] [address] Care Team Providers Care Ironworker Machine Operator Name Role Phone Jovany Peng MD Primary Care Provider [phone]- [phone] Reason for Visit * Reason Onset Date Comments Referral 06/26/2023 Encounter Details Date Type Department Care Team ([facility] st Contact Info) Description 06/26/2023 Telephone [facility] MED & PEDS [address] [place] [address] Jovany Peng MD [address] [place] [address] Referral Social History Tobacco Use Types Packs/Day [...] of preference. Dr. Eugene Zamarripa MD [address] [place] [address] documented in this encounter Plan of Treatment Not on file documented as of this encounter Visit Diagnoses Not on filedocumented in this encounter Care Teams Ironworker Machine Operator Relationship Specialty Start Date End Date Jovany Peng MD [address] [place] [address] PCP - General Internal Medicine 08/31/13 documented as of this encounter
--- OUTSIDE RECORDS SUMMARY | 2025-08-20 18:40 | XMS_ITS | Encounter Summary ---
Author Organization [employer] Address [address] [facility] 7t [place] [address] Care Team Providers Care Lead Operator Name Role Phone Jovany Peng MD Primary Care Provider [phone]- [phone] Reason for Visit * Reason Onset Date Comments Medication Question 01/14/2025 Encounter Details Date Type Department Care Team (Late st Contact Info) Description 01/14/2025 Telephone [facility] MEDICINE [address] [place] [address] Jovany Peng MD [address] [place], [place] [phone] Medication Question Social History Tobacco Use Types [...] on filedocumented in this encounter Care Teams Lead Operator Relationship Specialty Start Date End Date Jovany Peng MD [address] [place] [address] PCP - General Internal Medicine 08/31/13 documented as of this encounter
--- OUTSIDE RECORDS SUMMARY | 2025-08-20 18:40 | XMS_ITS | Encounter Summary ---
Author Organization [employer] Address [address] [facility] 7t [place] [address] Care Team Providers Care Property Custodian Name Role Phone Jovany Peng MD Primary Care Provider +1- [phone] Encounter Details Date Type Department Care Team ([facility] st Contact Info) Description 01/14/2025 Orders Only [facility] CH[facility] MED & PEDS [address] [place] [address] Jovany Peng MD [address] [place] [address] Atrial fibrillation, unspecified type (CMS/HCC) Social History [...] (HCC) documented in this encounter Care Teams Property Custodian Relationship Specialty Start Date End Date Jovany Peng MD [address] [place] [address] PCP - General Internal Medicine 08/31/13 documented as of this encounter
--- OUTSIDE RECORDS SUMMARY | 2025-08-20 18:40 | XMS_ITS | Encounter Summary ---
Author Organization [employer] Address [address] [facility] 7t [place] [address] Care Team Providers Care Data Collector Name Role Phone Jovany Peng MD Primary Care Provider [phone]- [phone] Reason for Visit * Reason Onset Date Comments FYI 05/30/2023 Encounter Details Date Type Department Care Team ([facility] st Contact Info) Description 05/30/2023 Telephone [facility] MED & PEDS [address] [place] [address] Jovany Peng MD [address] [place] [address] FYI Social History Tobacco Use Types Packs/Day [...] AM EDT Tc from daughter advising PCP, air and missile defense crewmember Dr. Valentino upped the dosage of dilTIAZem XR (Dilacor XR) 120 MG 24 hr capsule to Dilt-XR 240 MG 24 hr capsule. States she does not want pharmacy to be confused. documented in this encounter Plan of Treatment Not on file documented as of this encounter Visit Diagnoses Not on filedocumented in this encounter Care Teams Data Collector Relationship Specialty Start Date End Date Jovany Peng MD [address] [place] [address] PCP - General Internal Medicine 08/31/13 documented as of this encounter
--- OUTSIDE RECORDS SUMMARY | 2025-08-20 18:40 | XMS_ITS | Encounter Summary ---
Author Organization [employer] Address [address] [facility] 7[address] [place] [address] Care Team Providers Care Marketing Program Coordinator Name Role Phone Jovany Peng MD Primary Care Provider [phone] Encounter Details Date Type Department Care Team (Late st Contact Info) Description 08/20/2025 Orders Only GENERIC EXTERNAL DATA [...] COAG CLINIC Routine 08/20/2025 1:09 PM EST documented in this encounter Results * (ABNORMAL) PROTHROMBIN TIME WHOLE BLD POC (08/20/2025 1:09 PM EST) Protime 31.7(H) 11.1 - 13.5 sec [facility] 08/20/2025 1:09 PM EST 08/20/2025 1:11 PM EST us Generic External Data Provider LAB BLOOD ORDERAB LES Final Result Performing Organization Address [facility] Co de Phone Number [facility] [address] [place] [address] [phone] * (ABNORMAL) ~PT, ~INR - ANTI COAG CLINIC (08/20/2025 1:09 PM EST) Prothrombin Time INR 2.6(H) 0.9 - 1.1 [facility] Comment:METER #: [id number] TERNATIONAL NORMALIZED RATIO (INR) REFERENCE RANGES Reference [...] 1:09 PM EST 08/20/2025 1:11 PM EST [employer] External Data Provider LAB BLOOD ORDERAB LES Final Result Performing Organization Address [facility] Co de Phone Number [facility] [address] [place] [address] [phone] documented in this encounter Visit Diagnoses Not on filedocumented in this encounter Care Teams Marketing Program Coordinator Relationship Specialty Start Date End Date Jovany Peng MD [address] [place] [phone] PCP - General Internal Medicine 08/31/13 documented as of this encounter
== END 2025-08-20 13:18 | disposition home or self-care (01) ==
LOC: HO.ACS 13:03
PROVIDERS: PCP Internal Medicine; Visit Provider Internal Medicine Medical Oncology
DX: Z79.01 Long term (current) use of anticoagulants (principal)

== ENCOUNTER → 2025-08-20 13:03 | Outpatient (BNVA) | payer MEDICARE, MEDICAID, SELFPAY | PROVIDERS: PCP Internal Medicine; Visit Provider Internal Medicine Medical Oncology | DX: I48.0 Paroxysmal atrial fibrillation (principal); Z51.81 Encounter for therapeutic drug level monitoring; Z79.01 Long term (current) use of anticoagulants | CPT/HCPCS: 85610; 99211 ==